=== PATIENT | female | born 1965 | race African-American/Black ===

== ENCOUNTER 2017-03-15 10:49 | Inpatient (IN) | payer OTHER ==
[~2017-03-15] VITALS: Ht 165.1 cm; Wt 146.9 kg
[~2017-03-15 10:49] MED LIST: AUGM875T3 PO; CIPR0.3S RIGHT EAR; CLON0.1T PO; FURO1TAB62 PO; METF1000 PO; PRED20 PO; VALS1TAB70 PO
[2017-03-15] MEDS ORDERED: PROCHLORPERAZINE 25 MG SUPP RECTAL PRN (13:30)
[2017-03-15] MEDS ORDERED: ZOLPIDEM TARTRATE 5 MG TAB PO PRN (13:30)
[2017-03-15] MEDS ORDERED: MAGNESIUM HYDROXIDE SUSP 30 ML CUP PO PRN (13:30)
[2017-03-15] MEDS ORDERED: LACTULOSE SYRUP 20 GM/30 ML CUP PO PRN (13:30)
[2017-03-15] MEDS ORDERED: oxyCODONE/ACETAMINOPHEN 10 MG/325 MG TAB PO PRN (13:30)
[2017-03-15] MEDS ORDERED: NALOXONE HCL 0.4 MG/ML AMP IV PUSH PRN (13:30)
[2017-03-15] MEDS ORDERED: oxyCODONE/ACETAMINOPHEN 5 MG/325 MG TAB PO PRN (13:30)
[2017-03-15] MEDS ORDERED: MORPHINE SULFATE 4 MG/ML INJ IV PUSH PRN ×2 (13:30)
[2017-03-15] MEDS ORDERED: SODIUM CHLORIDE 0.9% FLUSH 10 ML FLUSH IV FLUSH PRN (13:30)
[2017-03-15] MEDS ORDERED: ACETAMINOPHEN 325 MG TAB PO PRN (13:30)
[2017-03-15] MEDS ORDERED: SENNOSIDES 8.6 MG TAB PO PRN (13:30)
[2017-03-15] MEDS ORDERED: GLUCAGON 1 MG/ML VIAL OTHER PRN (13:30)
[2017-03-15] MEDS ORDERED: ONDANSETRON HCL 4 MG/2 ML VIAL IVP PRN (13:30)
[2017-03-15] MEDS ORDERED: DEXTROSE 50% IN WATER 50 ML SYRINGE IV PUSH PRN (13:30)
[2017-03-15] MEDS ORDERED: BISACODYL 10 MG SUPP RECTAL PRN (13:30)
[2017-03-15] MEDS: PANTOPRAZOLE SOD 40 MG DELAYED RELEASE TAB PO SCH (13:45)
[2017-03-15] MEDS ORDERED: RESP: ALBUTEROL 2.5 MG/IPRATROPIUM 0.5 MG NEB (PRN) NEB (13:45)
[2017-03-15] MEDS ORDERED: PANTOPRAZOLE SOD 40 MG DELAYED RELEASE TAB PO ONE (13:45)
[2017-03-15] MEDS: guaiFENesin E.R. 600 MG TAB PO SCH ×2 (13:45→21:34)
[2017-03-15] MEDS ORDERED: IOHEXOL 350 MG/ML 10 ML VIAL (for RAD DIAG) IVCONTRAST ONE (16:26)
[2017-03-15 16:56] VITALS: BP 127/88; PULSE 82; RESP 18; TEMP 98.3; O2SAT 98
[2017-03-15] MEDS: INSULIN ASPART SUPPLEMENTAL SCALE SQ SCH ×2 (17:00→21:43)
[2017-03-15] MEDS: FUROSEMIDE 40 MG/4 ML VIAL IVP SCH (17:13)
[2017-03-15] MEDS: LEVOFLOXACIN 750 MG PREMIX INJ 150 ML IV SCH (17:14)
[2017-03-15] MEDS: ENOXAPARIN SODIUM 40 MG/0.4 ML SYRINGE SQ SCH (17:15)
[2017-03-15 17:48] VITALS: PULSE 84
[2017-03-15] MEDS ORDERED: metFORMIN HCL 500 MG TAB PO SCH (18:00)
--- NOTE | 2017-03-15 18:06 | HHI.HP ---
HPI Service [facility] Hospitalists Primary Care Physician Non-Staff DR SYKES Admission Diagnosis CHF, SOB, PNEUMONIA Diagnoses: (1) CHF (congestive heart failure) (2) Diabetes (3) Hypertension (4) Obese (5) Pneumonia (6) Accelerated hypertension Chief Complaint: Chest tightness Dyspnea Travel History International Travel<30 Days: No Contact w/Intl Traveler <30 Da: No Traveled to Known Affected Are: No History of Present Illness This is 51-year-old female with a past medical history significant for asthma, hypertension, diabetes and RY who presents to [facility] with complaints of chest tightness and shortness of breath 4 days. Patient was seen in [place] on 03/13 with same complaints and was treated with Lasix, nebulizer and IV Solu-Medrol and discharged on short oral steroid burst and oral Lasix. Patient was offered admission but declined. Patient presents today due to having increased shortness of breath that is worse with deep inspiration, bending over and movement as well as having nonradicular anterior bilateral chest pain the patient describes as a pressure sensation. She attempted to go to work today but was unable to stay due to the severity of her symptoms. Patient states her chest tightness is similar to previous asthmatic attack she's had in the past. She's been using her Ventolin inhaler and nebulizer treatments at home without any improvement. She denies any previous hospitalization due to asthma exacerbation. Patient reports history of nonpostural dizziness but states this is chronic and she's had it "for years". She had a loop recorder implanted in 2013 due to multiple syncopal episodes without any significant findings. She denies any recent illness. She denies any fever chills or cough. She reports some mild left-sided abdominal pain and episode of nonbilious nonbloody vomiting 1 last night. She denies any urinary complaints. She reports constipation and states she's not had a normal bowel movement in 4 days. She does endorse intermittent lower extremity swelling for the past year but reports has been much worse for the past month and a half. She states it has improved since she was given the Lasix several days ago. Patient states she is no longer having any complaints of chest discomfort since the nitroglycerin paste was applied. In the ED, CTA reveals no evidence of pulmonary embolus but shows patchy groundglass infiltrates and atelectasis. CXR shows stable cardiomegaly with improved positive fluid balance and minimal left lower lobe atelectasis. Patient's glucose is elevated at 316. Patient states her blood sugars normally run in the mid 100 but it been elevated due to the prednisone she has been taking since Wednesday. BNP elevated at 430. Review of Systems Constitutional: COMPLAINS OF: Fatigue, Dizziness, DENIES: Diaphoretic episodes , Fever, Weight gain, Weight loss, Chills, Change in appetite, Night Sweats Endocrine: DENIES: Abnorml menstrual pattern, Heat/cold intolerance, Polydipsia Eyes: DENIES: Blurred vision, Diplopia, Eye inflammation, Eye pain Ears, nose, mouth, throat: DENIES: Tinnitus, Hearing loss, Vertigo, Nasal discharge, Odynophagia Respiratory: COMPLAINS OF: Cough, Shortness of breath, DENIES: Apneas, Snoring , Wheezing, Hemoptysis, Sputum production Cardiovascular: COMPLAINS OF: Chest pain, Dyspnea on Exertion, Lower Extremity Edema, Orthopnea, DENIES: Palpitations, Syncope, PND Gastrointestinal: COMPLAINS OF: Constipation, DENIES: Abdominal pain, Black stools, Bloody stools Genitourinary: DENIES: Abnormal vaginal bleeding, Dysmenorrhea, Vaginal discharge Musculoskeletal: DENIES: Joint pain, Muscle aches, Stiffness Integumentary: DENIES: Abnormal pigmentation, Pruritus Hematologic/lymphatic: DENIES: Bruising, Lymphadenopathy Immunologic/allergic: DENIES: Eczema, Urticaria Neurologic: DENIES: Abnormal gait, Headache, Localized weakness, Paresthesias, Seizures, Speech Problems, Tremor Except as stated in HPI: all other systems reviewed are Neg Past Family Social History Past Medical History Asthma Uncontrolled hypertension Diabetes RY, Bipap compliant Obesity Past Surgical History Hernia repair Implantation of loop recorder 2014 Hysterectomy Bladder stimulator Reported Medications Prednisone 20 Mg Tab 40 Mg PO DAILY 5 Days Take 40 mg (2 tablets) daily for 5 days Lasix (Furosemide) 20 Mg Tab 20 Mg PO DAILY 7 Days Metformin (Metformin HCl) 1,000 Mg Tab 1,000 Mg PO BIDPC With meals Clonidine (Clonidine HCl) 0.1 Mg Tab 0.1 Mg PO BID Valsartan 320 Mg Tab 320 Mg PO DAILY Allergies: Coded Allergies: No Known Allergies (Unverified , 03/15/17) Active Ordered Medications Current Medications Medications (Trade) Dose Ordered Sig/Lidia Route Start Time Stop Time Status Last Admin (D50w (Syr) Inj) 50 ml UNSCH PRN IV PUSH 03/15/17 13:30 (Glucagon Inj) 1 mg UNSCH PRN OTHER 03/15/17 13:30 (NovoLOG SUPPLEMENTAL SCALE) 1 ACHS SLIDING SCALE SQ 03/15/17 17:00 03/15/17 17:00 (Catapres) 0.1 mg BID PO 03/15/17 21:00 (Glucophage) 1,000 mg BIDPC PO 03/15/17 18:00 (Diovan) 320 mg DAILY PO 03/16/17 09:00 (NS Flush) 2 ml UNSCH PRN IV FLUSH 03/15/17 13:30 (NS Flush) 2 ml BID IV FLUSH 03/15/17 21:00 (Lasix Inj) 40 mg BID@18 IVP 03/15/17 18:00 03/15/17 17:13 (KCl) 20 meq BID PO 03/15/17 21:00 (Aspirin Chew) 81 mg DAILY CHEW 03/16/17 09:00 (Lovenox Inj) 40 mg Q24H SQ 03/15/17 14:00 03/15/17 17:15 (Tylenol) 650 mg Q4H PRN PO 03/15/17 13:30 (Zofran Inj) 4 mg Q6H PRN IVP 03/15/17 13:30 (Compazine Supp) 25 mg Q12H PRN RECTAL 03/15/17 13:30 (Ambien) 5 mg HS PRN PO 03/15/17 13:30 (Tylenol) 650 mg Q6H PRN PO 03/15/17 13:30 (Percocet 5-325 Mg) 1 tab Q6H PRN PO 03/15/17 13:30 (Percocet 10-325 Mg) 1 tab Q6H PRN PO 03/15/17 13:30 (Morphine Inj) 2 mg Q3H PRN IV PUSH 03/15/17 13:30 (Morphine Inj) 4 mg Q3H PRN IV PUSH 03/15/17 13:30 (Narcan Inj) 0.4 mg UNSCH PRN IV PUSH 03/15/17 13:30 (Jennie-Colace) 1 tab BID PO 03/15/17 21:00 (Milk Of Magnesia Liq) 30 ml Q12H PRN PO 03/15/17 13:30 (Senokot) 17.2 mg Q12H PRN PO 03/15/17 13:30 03/15/17 17:13 (Dulcolax Supp) 10 mg DAILY PRN RECTAL 03/15/17 13:30 (Lactulose Liq) 30 ml DAILY PRN PO 03/15/17 13:30 (Mucinex Er) 600 mg BID PO 03/15/17 13:45 (Duoneb Neb) 1 ampule Q4HR NEB PRN NEB 03/15/17 13:45 (Protonix) 40 mg DAILY PO 03/15/17 13:45 Levofloxacin/ Dextrose 150 ml @ 100 mls/hr Q24H IV 03/15/17 14:00 03/15/17 17:14 Family History CAD - mother Diabetes - mother, brothers Social History Patient denies any tobacco use. She reports occasional alcohol consumption. She denies any illicit drug use. Physical Exam Vital Signs Vital Signs Date Time Temp Pulse Resp B/P (MAP) Pulse Ox O2 Delivery O2 Flow Rate FiO2 03/15/17 16:56 98.3 82 18 127/88 (101) 98 Physical Exam GENERAL: This is a well-nourished, well-developed obese patient, in no apparent distress. Awake and alert. Appears comfortable. SKIN: No rashes, ecchymoses or lesions. Cool and dry. HEAD: Atraumatic. Normocephalic. No temporal or scalp tenderness. EYES: Pupils equal round and reactive. Extraocular motions intact. No scleral icterus. No injection or drainage. ENT: Nose without bleeding, purulent drainage. Throat without erythema, tonsillar hypertrophy or exudate. Uvula midline. Airway patent. NECK: Trachea midline. No lymphadenopathy. Supple, nontender, no meningeal signs. CARDIOVASCULAR: Regular rate and rhythm without murmurs, gallops, or rubs. RESPIRATORY: Clear to auscultation. Breath sounds equal bilaterally. No wheezes , rales, or rhonchi. GASTROINTESTINAL: Abdomen soft, non-tender, nondistended. No hepato-splenomegaly , or palpable masses. No guarding. MUSCULOSKELETAL: Extremities without clubbing, cyanosis. Trace BLE edema. No joint tenderness, effusion, or edema noted. No calf tenderness. NEUROLOGICAL: Awake and alert. Able to move all extremities. Normal speech. Laboratory White blood cell count is 13.4 Hemoglobin is 11.7 Hematocrit is 34.9 Platelets are 339 White Blood Count 13.4 TH/MM3 Red Blood Count 4.47 MIL/MM3 Hemoglobin 11.7 GM/DL Hematocrit 34.9 % Mean Corpuscular Volume 78.1 FL Mean Corpuscular Hemoglobin 26.2 PG Mean Corpuscular Hemoglobin Concent 33.5 % Red Cell Distribution Width 14.8 % Platelet Count 339 TH/MM3 Mean Platelet Volume 9.3 FL Neutrophils (%) (Auto) 65.2 % Lymphocytes (%) (Auto) 28.0 % Monocytes (%) (Auto) 5.8 % Eosinophils (%) (Auto) 0.1 % Basophils (%) (Auto) 0.2 % Neutrophils # (Auto) 8.7 TH/MM3 Lymphocytes # (Auto) 3.7 TH/MM3 Monocytes # (Auto) 0.8 TH/MM3 Eosinophils # (Auto) 0.0 TH/MM3 Basophils # (Auto) 0.0 TH/MM3 CBC Comment DIFF FINAL Differential Comment Prothrombin Time 11.3 SEC Prothromb Time International Ratio 1.1 RATIO Activated Partial Thromboplast Time 21.9 SEC D-Dimer Quantitative (PE/DVT) 1.05 MG/L FEU Blood Urea Nitrogen 15 MG/DL Creatinine 0.80 MG/DL Random Glucose 316 MG/DL Total Protein 8.1 GM/DL Albumin 3.7 GM/DL Calcium Level 10.0 MG/DL Magnesium Level 2.0 MG/DL Alkaline Phosphatase 132 U/L Aspartate Amino Transf (AST/SGOT) 21 U/L Alanine Aminotransferase (ALT/SGPT) 39 U/L Total Bilirubin 0.7 MG/DL Sodium Level 140 MEQ/L Potassium Level 3.7 MEQ/L Chloride Level 102 MEQ/L Carbon Dioxide Level 30.0 MEQ/L Anion Gap 8 MEQ/L Estimat Glomerular Filtration Rate 92 ML/MIN Total Creatine Kinase 122 U/L Creatine Kinase MB 1.3 NG/ML Troponin I 0.04 NG/ML B-Type Natriuretic Peptide 430 PG/ML Imaging CXR 03/15/17 CONCLUSION: 1. Cardiomegaly with improved positive fluid balance. 2. Minimal left lower lobe atelectasis. CTA 03/15/17 CONCLUSION: 1. No evidence for pulmonary embolus. 2. Patchy ground glass infiltrates and atelectasis. Caprini VTE Risk Assessment Caprini VTE Risk Assessment: Mod/High Risk (score >= 2) Caprini Risk Assessment Model Point Value = 1 Point Value = 2 Point Value = 3 Point Value = 5 Age 41-60 Minor surgery BMI > 25 kg/m2 Swollen legs Varicose veins or History of unexplained or recurrent spontaneous Oral contraceptives or hormone replacement Sepsis (< 1 month) Serious lung disease, including pneumonia (< 1 month) Abnormal pulmonary function Acute myocardial infarction Congestive heart failure (< 1 month) History of inflammatory bowel disease Medical patient at bed rest Age 61-74 Arthroscopic surgery Major open surgery (> 45 min) Laparoscopic surgery (> 45 min) Malignancy Confined to bed (> 72 hours) Immobilizing plaster cast Central venous access Age >= 75 History of VTE Family history of VTE Factor V Leiden Prothrombin [id number] Lupus anticoagulant Anticardiolipin antibodies Elevated serum homocysteine Heparin-induced thrombocytopenia Other congenital or acquired thrombophilia Stroke (< 1 month) Elective arthroplasty Hip, pelvis, or leg fracture Acute spinal cord injury (< 1 month) Prophylaxis Regimen Total Risk Factor Score Risk Level Prophylaxis Regimen 0-1 Low Early ambulation 2 Moderate Order ONE of the following: *Sequential Compression Device (SCD) *Heparin 5000 units SQ BID 3-4 Higher Order ONE of the following medications: *Heparin 5000 units SQ TID *Enoxaparin/Lovenox 40 mg SQ daily (WT < 150 kg, CrCl > 30 mL/min) *Enoxaparin/Lovenox 30 mg SQ daily (WT < 150 kg, CrCl > 10-29 mL/min) *Enoxaparin/Lovenox 30 mg SQ BID (WT < 150 kg, CrCl > 30 mL/min) AND/OR *Sequential Compression Device (SCD) 5 or more Highest Order ONE of the following medications: *Heparin 5000 units SQ TID (Preferred with Epidurals) *Enoxaparin/Lovenox 40 mg SQ daily (WT < 150 kg, CrCl > 30 mL/min) *Enoxaparin/Lovenox 30 mg SQ daily (WT < 150 kg, CrCl > 10-29 mL/min) *Enoxaparin/Lovenox 30 mg SQ BID (WT < 150 kg, CrCl > 30 mL/min) AND *Sequential Compression Device (SCD) Assessment and Plan Problem List: (1) Accelerated hypertension ICD Code: I10 - Essential (primary) hypertension Status: Acute (2) Obese ICD Code: E66.9 - Obesity, unspecified (3) CHF (congestive heart failure) ICD Code: I50.9 - Heart failure, unspecified (4) Hypertension ICD Code: I10 - Essential (primary) hypertension (5) Diabetes ICD Code: E11.9 - Type 2 diabetes mellitus without complications Assessment and Plan 51-year-old female with a past medical history significant for asthma, uncontrolled hypertension, diabetes and RY who presents to [facility] with complaints of chest tightness and shortness of breath 4 days. Chest pain/tightness r/o ACS - Improved after nitropaste applied - initial troponin 0.04 - EKG personally reviewed, nonspecific T-wave abnormality, no evidence of ischemic changes - Continue to cycle cardiac enzymes and EKGs - Consult cardiology - ASA 81mg daily - Morphine 2mg IV prn chest pain - Continuous cardiac monitoring CHF exacerbation - CXR personally reviewed showing minimal left basilar opacity, enlarged cardiac silhouette and improved positive fluid balance from previous chest x- ray. - BNP 430 - Fluid restricted heart healthy diet - Lasix 40mg IV BID - Monitor electrolytes - Monitor intake/output - obtain 2D echo - PT/OT eval/tx Pneumonia Hx of asthma RY on Bipap - Chest x-ray revealing minimal left basilar opacity and atelectasis - CTA revealing groundglass infiltrates and subcentimeter mediastinal and right hilar lymph nodes. No evidence of PE or pleural effusions. - Consult Pulmonary medicine - IV Levaquin - Guaifenesin ER 600 mg by mouth twice a day - scheduled Duonebs - IS, encourage use - supplemental oxygen as needed to keep O2 sats >92% Leukocytosis - Likely secondary to steroid use - Patient is afebrile. - UA ordered - Repeat CBC in a.m. Diabetes - Elevated blood sugar of 316 admission. Patient is on oral steroids. - Hold metformin - Accu-Cheks - Insulin sliding scale - Diabetic heart healthy diet - obtain HgbA1c Hypertension - Controlled - Continue patient on home dose of Diovan 320 mg daily and Clonidine 0.1mg BID. - monitor BP Constipation - likely contributing to patients mild abdominal pain - Jennie-Colace twice a day scheduled - Dulcolax and Lactulose prn - Monitor for BM GI prophylaxis - Pantoprazole 40 mg daily DVT prophylaxis - Lovenox 40 mg subcutaneous daily - Bilateral AMY/SCDs The exam, history, and the medical decision-making described in the above note were completed with the assistance of the mid-level provider. I reviewed and agree with the findings presented. I attest that I had a [id number] encounter with the patient on the same day, and personally performed and documented my assessment and findings in the medical record. Code Status FULL CODE Discussed Condition With Patient, spouse, nursing staff, Dr. Gr Physician Certification 2 Midnight Certification Type: Admission for Inpatient Services Order for Inpatient Services The services are ordered in accordance with Medicare regulations or non- Medicare payer requirements, as applicable. In the case of services not specified as inpatient-only, they are appropriately provided as inpatient services in accordance with the 2-midnight benchmark. Estimated LOS (days): 2 2 days is the estimated time the patient will need to remain in the hospital, assuming treatment plan goals are met and no additional complications. Post-Hospital Plan: Not yet determined Jane Jones Mar 15, 2017 18:06 Nicola Gr DO Mar 15, 2017 18:43
[2017-03-15 19:56] VITALS: O2SAT 99
[2017-03-15 20:03] VITALS: BP 143/93; PULSE 90; RESP 14; TEMP 96; O2SAT 95
[2017-03-15 20:09] VITALS: PULSE 88
[2017-03-15] MEDS: DOCUSATE SODIUM 50 MG/SENNA 8.6 MG TAB PO SCH (21:34)
[2017-03-15] MEDS: cloNIDine HCL 0.1 MG TAB PO SCH (21:34)
[2017-03-15] MEDS: SODIUM CHLORIDE 0.9% FLUSH 10 ML FLUSH IV FLUSH SCH (21:34)
[2017-03-15] MEDS: POTASSIUM CHLORIDE 20 MEQ CONTROLLED RELEASE TAB PO SCH (21:34)
[2017-03-15 21:39] LABS: CREATINE KINASE 134 U/L (26-192)
[2017-03-16] VITALS (15 sets, daily range): BP systolic 117–183; BP diastolic 75–105; PULSE 53–91; RESP 18–20; TEMP 97.7–98.4; O2SAT 93–98
[2017-03-16 03:29] LABS: MEAN CORPUSCULAR HEMOGLOBIN 26.4 PG (27.0-34.0); MEAN CORPUSCULAR HGB CONC 33.8 % (32.0-36.0); PLATELET COUNT 320 TH/MM3 (150-450); RED BLOOD COUNT 4.61 MIL/MM3 (4.00-5.30); RED CELL DISTRIBUTION WIDTH 15.6 % (11.6-17.2); WHITE BLOOD COUNT 12.6 TH/MM3 (4.0-11.0)
[2017-03-16 03:32] LABS: HEMO FLAGS AUTO DIFF
[2017-03-16 03:41] LABS: MAGNESIUM 1.7 MG/DL (1.5-2.5)
[2017-03-16 04:52] LABS: NEUTROPHIL # MANUAL DIFF 5.5 TH/MM3 (1.8-7.7); POLYS (SEG NEUTROPHILS) 44 % (16-70); WBC DIFF SAMPLE 100
[2017-03-16 04:53] LABS: PLATELET ESTIMATE SMEAR NORMAL (NORMAL); PLATELET MORPHOLOGY NORMAL (NORMAL); SCAN/DIFF FINAL DIFF MANUAL
[2017-03-16] MEDS: cloNIDine HCL 0.1 MG TAB PO SCH ×2 (07:49→21:00)
[2017-03-16] MEDS: ASPIRIN 81 MG CHEW TAB CHEW SCH (07:49)
[2017-03-16] MEDS: FUROSEMIDE 40 MG/4 ML VIAL IVP SCH (07:50)
[2017-03-16] MEDS: PANTOPRAZOLE SOD 40 MG DELAYED RELEASE TAB PO SCH (07:50)
[2017-03-16] MEDS: POTASSIUM CHLORIDE 20 MEQ CONTROLLED RELEASE TAB PO SCH ×2 (07:50→21:00)
[2017-03-16] MEDS: DOCUSATE SODIUM 50 MG/SENNA 8.6 MG TAB PO SCH ×2 (07:50→21:00)
[2017-03-16] MEDS: VALSARTAN 160 MG TAB PO SCH (07:50)
[2017-03-16] MEDS: guaiFENesin E.R. 600 MG TAB PO SCH ×2 (07:50→21:00)
[2017-03-16] MEDS: SODIUM CHLORIDE 0.9% FLUSH 10 ML FLUSH IV FLUSH SCH ×2 (07:51→21:00)
[2017-03-16] MEDS: INSULIN ASPART SUPPLEMENTAL SCALE SQ SCH ×3 (08:00→21:00)
[2017-03-16 09:40] LABS: ANION GAP 6 MEQ/L (5-15); AST (GOT) 23 U/L (15-37); BICARBONATE 29.9 MEQ/L (21.0-32.0); BLOOD UREA NITROGEN 20 MG/DL (7-18); CHLORIDE 99 MEQ/L (98-107); GLOMERULAR FILTRATION RATE 72 ML/MIN (>89); MAGNESIUM 1.7 MG/DL (1.5-2.5); SODIUM (NA) 135 MEQ/L (136-145)
[2017-03-16 09:41] LABS: ALT (GPT) 34 U/L (10-53)
[2017-03-16 09:50] LABS: ALKALINE PHOSPHATASE 100 U/L (45-117); FREE T4 0.98 NG/DL (0.76-1.46); TOTAL BILIRUBIN ADULT 0.8 MG/DL (0.2-1.0)
[2017-03-16 10:06] LABS: CREATINE KINASE 100 U/L (26-192)
[2017-03-16 11:23] LABS: HEMOGLOBIN A1a 1.1 %; HEMOGLOBIN A1b 0.7 %; HEMOGLOBIN Ao 49.8 %; HEMOGLOBIN F 1.1 %; HEMOGLOBIN LA1C 1.9 %; HEMOGLOBIN P3 3.1 %
--- NOTE | 2017-03-16 11:32 | MB ---
cc: STEVE STACK DATE OF CONSULTATION 03/16/2017 INDICATION Chest pain, shortness of breath. HISTORY OF PRESENT ILLNESS This is a 51-year-old female without prior history of known heart disease. She has a history of asthma, hypertension, diabetes in addition to sleep apnea. She presents with progressive shortness of breath over the course of the past week or so. She has a overlock hemmer in [place] secondary to several syncopal episodes quite a while back. She has had a loop recorder implanted in 2013 but no significant findings. According to her, she had a stress test about two years ago which was unremarkable. She has not had any history of cardiomyopathy or valvular heart disease. Apparently she was in [facility] on March 13, was treated with nebulizer, IV Solu-Medrol for wheezing and offered admission, but declined. She has continued to have progressive symptoms and came into the emergency department for further evaluation. Chest x-ray did show cardiomegaly and some interstitial fluent. CTA revealed some patchy ground-glass infiltrates, but no embolus. She was initiated on diuretics and symptomatically seems to be doing a little better. She describes the chest pain as a constant pain somewhat worse with deep inspiration, nonexertional. PAST MEDICAL HISTORY 1. Asthma 2. Hypertension 3. Diabetes 4. Obstructive sleep apnea 5. Obesity REPORTED MEDICATIONS 1. Prednisone taper 2. Lasix 3. Metformin 4. Clonidine 5. Valsartan ALLERGIES NO KNOWN DRUG ALLERGIES. FAMILY HISTORY Denies any family history of early coronary artery disease or sudden cardiac . SOCIAL HISTORY Denies any alcohol, tobacco or drug use. REVIEW OF SYSTEMS A 12-point review of systems was performed and is negative unless otherwise as noted in the history of present illness. PHYSICAL EXAMINATION Temperature 98, pulse 64, blood pressure 123/84 mmHg. GENERAL: Alert and oriented x3, obese. HEENT: The exam shows pupils are reactive to light and accommodation. Extraocular movements are intact. NECK: Jugular veins are difficult to appreciate given body habitus. No carotid bruits. LUNGS: Clear to auscultation bilaterally with some fine crackles at the bases. CARDIOVASCULAR: Distant heart sounds regular without murmurs. ABDOMEN: Abdominal exam is obese, but nondistended, nontender. EXTREMITIES: Show no clubbing, cyanosis. 1+ edema. LABORATORY DATA WBC 12.6, hemoglobin 12.2, platelet count 320. Sodium 135, potassium 4.0, BUN is 20, creatinine 0.99, troponins negative x3. Her electrocardiogram is sinus rhythm with occasional premature atrial complexes, borderline LVH. ASSESSMENT 1. Atypical chest pain. 2. Congestive heart failure acute. 3. Hypertension 4. Diabetes 5. Obstructive sleep apnea. PLAN The patient's chest pain is fairly atypical for cardiac etiology. She has minimal cardiovascular risk factors and negative stress test two years ago. CTA was negative for pulmonary embolism. Her symptoms sound almost pleuritic in nature. Discussed options with her. She would like to proceed with another stress test here. We can get a Lexiscan. She has not had any caffeine yet today. Hopefully this will look normal. Threshold for proceed with any invasive strategy would be rather high given her atypical presentation. From a shortness of breath standpoint, it may be multifactorial, a combination of her asthma, sleep apnea in addition to some congestive heart failure. I suspect that she may have diastolic failure, BNP is mildly elevated and chest x-ray also confirms interstitial edema. She is slightly improved with diuresis. We will follow up on a 2-D echocardiogram, continue diuretics, monitor blood pressure. MD CHRISTIAN An/SHAWN /11:06 AM /11:21 AM
--- NOTE | 2017-03-16 11:34 | HHI.PR ---
Subjective Remarks The pt was resting comfortably. She said she still has some right sided chest discomfort. She endorsed significant constipation. She said she talked with the system administrator. Family at the bedside. Objective Vitals Vital Signs Date Time Temp Pulse Resp B/P (MAP) Pulse Ox O2 Delivery O2 Flow Rate FiO2 03/16/17 09:20 123/84 (97) 03/16/17 08:00 64 03/16/17 07:50 93 21 03/16/17 07:36 98.4 80 20 180/93 (122) 96 03/16/17 04:35 98.2 80 18 117/75 (89) 95 03/16/17 03:59 86 03/16/17 00:20 98.3 61 18 138/87 (104) 96 03/16/17 00:05 74 03/15/17 20:09 88 03/15/17 20:03 96.0 90 14 143/93 (110) 95 03/15/17 19:56 99 03/15/17 17:48 84 03/15/17 16:56 98.3 82 18 127/88 (101) 98 I/O 03/15/17 03/15/17 03/15/17 03/16/17 03/16/17 03/16/17 07:00 15:00 23:00 07:00 15:00 23:00 Intake Total 580 ml 480 ml Output Total 200 ml Balance 380 ml 480 ml Intake Oral 280 ml 480 ml IV Total 300 ml Output Urine Total 200 ml Result Diagram: 03/16/17 0307 03/16/17 0851 Objective Remarks GENERAL: This is a well-nourished, well-developed obese patient, using her home breathing device. SKIN: No rashes, ecchymoses or lesions. Cool and dry. HEAD: Atraumatic. Normocephalic. No temporal or scalp tenderness. EYES: Pupils equal round and reactive. Extraocular motions intact. No scleral icterus. No injection or drainage. ENT: Nose without bleeding, purulent drainage. Throat without erythema, tonsillar hypertrophy or exudate. Uvula midline. Airway patent. NECK: Trachea midline. No lymphadenopathy. Supple, nontender, no meningeal signs. CARDIOVASCULAR: Regular rate and rhythm without murmurs, gallops, or rubs. RESPIRATORY: Clear to auscultation. Breath sounds equal bilaterally. No wheezes , rales, or rhonchi. GASTROINTESTINAL: Abdomen soft, non-tender, nondistended. No hepato-splenomegaly , or palpable masses. No guarding. MUSCULOSKELETAL: Extremities without clubbing, cyanosis. Trace BLE edema. No joint tenderness, effusion. NEUROLOGICAL: Awake and alert. Able to move all extremities. Normal speech. PSYCH: Mood and affect appropriate. Medications and IVs Current Medications Medications (Trade) Dose Ordered Sig/Lidia Route Start Time Stop Time Status Last Admin (D50w (Syr) Inj) 50 ml UNSCH PRN IV PUSH 03/15/17 13:30 (Glucagon Inj) 1 mg UNSCH PRN OTHER 03/15/17 13:30 (NovoLOG SUPPLEMENTAL SCALE) 1 ACHS SLIDING SCALE SQ 03/15/17 17:00 03/16/17 08:00 (Catapres) 0.1 mg BID PO 03/15/17 21:00 03/16/17 07:49 (Glucophage) 1,000 mg BIDPC PO 03/15/17 18:00 Future Hold (Diovan) 320 mg DAILY PO 03/16/17 09:00 03/16/17 07:50 (NS Flush) 2 ml UNSCH PRN IV FLUSH 03/15/17 13:30 (NS Flush) 2 ml BID IV FLUSH 03/15/17 21:00 03/16/17 07:51 (Lasix Inj) 40 mg BID@,18 IVP 03/15/17 18:00 03/16/17 07:50 (KCl) 20 meq BID PO 03/15/17 21:00 03/16/17 07:50 (Aspirin Chew) 81 mg DAILY CHEW 03/16/17 09:00 03/16/17 07:49 (Lovenox Inj) 40 mg Q24H SQ 03/15/17 14:00 03/15/17 17:15 (Tylenol) 650 mg Q4H PRN PO 03/15/17 13:30 (Zofran Inj) 4 mg Q6H PRN IVP 03/15/17 13:30 (Compazine Supp) 25 mg Q12H PRN RECTAL 03/15/17 13:30 (Ambien) 5 mg HS PRN PO 03/15/17 13:30 (Tylenol) 650 mg Q6H PRN PO 03/15/17 13:30 (Percocet 5-325 Mg) 1 tab Q6H PRN PO 03/15/17 13:30 (Percocet 10-325 Mg) 1 tab Q6H PRN PO 03/15/17 13:30 (Morphine Inj) 2 mg Q3H PRN IV PUSH 03/15/17 13:30 (Morphine Inj) 4 mg Q3H PRN IV PUSH 03/15/17 13:30 (Narcan Inj) 0.4 mg UNSCH PRN IV PUSH 03/15/17 13:30 (Jennie-Colace) 1 tab BID PO 03/15/17 21:00 03/16/17 07:50 (Milk Of Magnesia Liq) 30 ml Q12H PRN PO 03/15/17 13:30 (Senokot) 17.2 mg Q12H PRN PO 03/15/17 13:30 03/15/17 17:13 (Dulcolax Supp) 10 mg DAILY PRN RECTAL 03/15/17 13:30 (Lactulose Liq) 30 ml DAILY PRN PO 03/15/17 13:30 (Mucinex Er) 600 mg BID PO 03/15/17 13:45 03/16/17 07:50 (Duoneb Neb) 1 ampule Q4HR NEB PRN NEB 03/15/17 13:45 (Protonix) 40 mg DAILY PO 03/15/17 13:45 03/16/17 07:50 Levofloxacin/ Dextrose 150 ml @ 100 mls/hr Q24H IV 03/15/17 14:00 03/15/17 17:14 A/P Problem List: (1) Accelerated hypertension ICD Code: I10 - Essential (primary) hypertension Status: Acute (2) Obese ICD Code: E66.9 - Obesity, unspecified (3) CHF (congestive heart failure) ICD Code: I50.9 - Heart failure, unspecified (4) Hypertension ICD Code: I10 - Essential (primary) hypertension (5) Diabetes ICD Code: E11.9 - Type 2 diabetes mellitus without complications Assessment and Plan 51-year-old female with a past medical history significant for asthma, uncontrolled hypertension, diabetes and RY who presents to [facility] with complaints of chest tightness and shortness of breath 4 days. Chest pain/tightness r/o ACS - Improved after nitropaste applied - troponin peaked at 0.04. - EKG personally reviewed, nonspecific T-wave abnormality, no evidence of ischemic changes - appreciate cardiology consult. Stress test pending. - ASA 81mg daily - pain control as needed - Continuous cardiac monitoring CHF exacerbation - CXR personally reviewed showing minimal left basilar opacity, enlarged cardiac silhouette and improved positive fluid balance from previous chest x- ray. - BNP 430 - Fluid restricted heart healthy diet - Lasix 40mg IV BID - Monitor electrolytes - Monitor intake/output - obtain 2D echo - PT/OT eval/tx - follow up with cardiology. Stress test pending. Pneumonia Hx of asthma RY on Bipap - Chest x-ray revealing minimal left basilar opacity and atelectasis - CTA revealing groundglass infiltrates and subcentimeter mediastinal and right hilar lymph nodes. No evidence of PE or pleural effusions. - Consult Pulmonary medicine - IV Levaquin - Guaifenesin ER 600 mg by mouth twice a day - scheduled Duonebs - IS, encourage use - supplemental oxygen as needed to keep O2 sats >92% Leukocytosis - Likely secondary to steroid use - Patient is afebrile. - UA ordered - Repeat CBC in a.m. Diabetes - Elevated blood sugar of 316 admission. Patient is on oral steroids. - Hold metformin - Accu-Cheks - Insulin sliding scale - Diabetic heart healthy diet - obtain HgbA1c - NPH 20 units daily. Hypertension - Controlled - Continue patient on home dose of Diovan 320 mg daily and Clonidine 0.1mg BID. - monitor BP Constipation - likely contributing to patients mild abdominal pain - Jennie-Colace twice a day scheduled. Standing Miralax. Lactulose x 1. - Dulcolax and Lactulose prn - Monitor for BM GI prophylaxis - Pantoprazole 40 mg daily DVT prophylaxis - Lovenox 40 mg subcutaneous daily - Bilateral AMY/SCDs Discharge Planning Awaiting clinical improvement. Stress test pending Curtis Adams DO Mar 16, 2017 11:34
--- NOTE | 2017-03-16 11:38 | EKG ---
Date Performed: 03/15/2017 Time Performed: 20:53:30 PTAGE: 51 years EKG: Sinus rhythm WITH OCCASIONAL SUPRAVENTRICULAR PREMATURE COMPLEXES MODERATE VOLTAGE CRITERIA FOR LVH, CONSIDER NOR MAL VARIANT NONSPECIFIC T-WAVE ABNORMALITY BORDERLINE ECG NO PREVIOUS TRACING DOCTOR: Edgard Zepeda Interpretating Date/Time 03/16/2017 11:36:08
[2017-03-16] MEDS ORDERED: INSULIN HUMAN NPH 1,000 UNITS/10 ML VIAL SQ ONE (11:45)
[2017-03-16] MEDS ORDERED: LACTULOSE SYRUP 20 GM/30 ML CUP PO ONE (11:45)
--- NOTE | 2017-03-16 12:50 | ECHRPT ---
Indication: heart failure CONCLUSIONS The left ventricular systolic function is severely reduced with an estimated ejection fraction in th e range of 30-35%. Normal left ventricular size. Mild concentric left ventricular hypertrophy. The left atrial size is upper limits of normal. [id number] mitral valve regurgitation. There is mild tricuspid valve regurgitation BP: / HR: Rhythm: MEASUREMENTS (Male / Female) Normal Values Technical Quality:Technically difficult study 2D ECHO LV Diastolic Diameter PLAX 4.4 cm 4.2 - 5.9 / 3.9 - 5.3 cm LV Systolic Diameter PLAX 3.9 cm IVS Diastolic Thickness 1.8 cm 0.6 - 1.0 / 0.6 - 0.9 cm LVPW Diastolic Thickness 1.3 cm 0.6 - 1.0 / 0.6 - 0.9 cm LV Relative Wall Thickness 0.7 RV Internal Dim ED PLAX 2.6 cm M-MODE Aortic Root Diameter MM 2.9 cm LA Systolic Diameter MM 4.2 cm LA Ao Ratio MM 1.4 AV Cusp Separation MM 2.0 cm DOPPLER MV Peak Velocity 90.2 cm/s MV Peak Gradient 3.3 mmHg MV Mean Velocity 36.3 cm/s MV Mean Gradient 1.0 mmHg Mitral E Point Velocity 82.9 cm/s Mitral A Point Velocity 42.0 cm/s Mitral E to A Ratio 2.0 LV E' Lateral Velocity 7.4 cm/s Mitral E to LV E' Lateral Ratio 11.2 LV E' Septal Velocity 7.7 cm/s Mitral E to LV E' Septal Ratio 10.8 FINDINGS LEFT VENTRICLE The left ventricular systolic function is severely reduced with an estimated ejection fraction in th e range of 30-35%. Normal left ventricular size. Mild concentric left ventricular hypertrophy. RIGHT VENTRICLE Normal right ventricular size and systolic function. LEFT ATRIUM The left atrial size is upper limits of normal. RIGHT ATRIUM The right atrial size is normal. ATRIAL SEPTUM Normal atrial septal thickness without atrial level shunting by limited color doppler interrogation. AORTA The aortic root and proximal ascending aorta are normal in size on limited imaging. MITRAL VALVE Structurally normal mitral valve. [id number] mitral valve regurgitation. AORTIC VALVE Trileaflet aortic valve. TRICUSPID VALVE Structurally normal tricuspid valve. There is mild tricuspid valve regurgitation. PULMONARY VALVE The pulmonary valve is not well visualized. VESSELS The inferior vena cava is normal in size. PERICARDIUM No pericardial effusion. Thang Correia MD, FACC (Electronically Signed) Final Date:16 March 2017 12:49
[2017-03-16] MEDS ORDERED: REGADENOSON INJ 0.4 MG/5 ML SYR ONE (15:59)
--- NOTE | 2017-03-16 16:28 | OTSOAPIP ---
TIME SESSION COMPLETED: 1440 RECEIVED OCCUPATIONAL THERAPY ORDERS. ATTEMPTED TO SEE PATIENT, HOWEVER PATIENT JUST LEFT OFF FLOOR FOR STRESS TEST AND WILL BE AWAY FOR AN EXTENDED TIME PERIOD . WILL REATTEMPT TOMORROW. INTERDISCIPLINARY COMMUNICATION: REVIEWED ELECTRONIC MEDICAL RECORD Therapist: Marianne Baumann, OTR/L Signature on file
[2017-03-16] MEDS: LEVOFLOXACIN 750 MG PREMIX INJ 150 ML IV SCH (16:31)
[2017-03-16] MEDS: ENOXAPARIN SODIUM 40 MG/0.4 ML SYRINGE SQ SCH (16:31)
[2017-03-16] MEDS: POLYETHYLENE GLYCOL 17 GM PKG PO SCH (16:31)
--- NOTE | 2017-03-16 17:00 | RADRPT ---
EXAM DATE/TIME: 03/16/2017 14:25 [facility] COMPARISON: No previous studies available for comparison. INDICATIONS : Cardiomyopathy. Angina. Coronary artery disease. DOSE: 35.6 mCi Tc99m Myoview at stress. 11 mCi Tc99m Myoview at rest. 0.4 mg Lexiscan STRESS SYMPTOMS: Shortness of breath. EJECTION FRACTION: 39% MEDICAL HISTORY : Congestive hearrt failure. Hypertension. Chronic obstructive pulmonary disease. SURGICAL HISTORY : Hysterectomy. Inguinal hernia repair. ENCOUNTER: Initial ACUITY: 1 day PAIN SCALE: 2/10 LOCATION: Bilateral chest TECHNIQUE: The patient underwent pharmacologic stress with infusion of prescribed dose. Continuous ECG tracing was monitored during stress. Gated SPECT imaging was performed after stress and conventional SPECT i maging was performed at rest. The examination was performed on a SPECT/CT scanner, both attenuation and non-corrected datasets were reviewed. FINDINGS: DISTRIBUTION: The maximum perfused segment at stress is in the anterolateral wall. PERFUSION STUDY: The examination demonstrates a large in size, moderate in severity, fixed perfusion defect involving the cardiac septum. No reversible perfusion defect is identified. GATED STUDY: There is hypokinesis of the cardiac septum with dilation of the ventricular cavity. The ejection frac tion is estimated at 39%. CONCLUSION: 1. Large, fixed perfusion defect involving the septum suggesting infarct. There is dilation of the ve ntricular cavity with hypokinesis of the septum evident on the gated data. No reversible perfusion de fect is identified. RISK CATEGORY: High (>3% Annual Mortality Rate) Enoch Lim MD on March 16, 2017 at 16:56 Board Certified Radiologist. This report was verified electronically.
[2017-03-17] VITALS (8 sets, daily range): BP systolic 103–153; BP diastolic 58–95; PULSE 59–84; RESP 18–20; TEMP 97.3–98.3; O2SAT 95–99
[2017-03-17] MEDS ORDERED: DEFIB EXTERNAL (08:01)
--- NOTE | 2017-03-17 08:01 | PD.CARD.PN ---
Subjective Subjective Remarks breathing improved, still some constant chest pressure (Kemar Buchanan) Objective Vital Signs / I&O Vital Signs Date Time Temp Pulse Resp B/P (MAP) Pulse Ox O2 Delivery O2 Flow Rate FiO2 03/17/17 04:25 97.3 62 18 103/58 (73) 95 03/17/17 04:00 Room Air 03/17/17 00:05 97.3 71 18 116/74 (88) 96 03/17/17 00:00 Room Air 03/16/17 23:32 97 03/16/17 20:00 82 03/16/17 20:00 Room Air 03/16/17 17:45 98.1 65 20 136/83 (100) 98 03/16/17 17:34 183/83 (116) 03/16/17 17:04 98.1 70 20 154/105 (121) 98 03/16/17 16:40 91 03/16/17 12:00 97.7 53 20 131/82 (98) 97 03/16/17 09:20 123/84 (97) 03/16/17 08:00 64 I/O 03/16/17 03/16/17 03/16/17 03/17/17 03/17/17 03/17/17 07:00 15:00 23:00 07:00 15:00 23:00 Intake Total 480 ml 900 ml 240 ml Output Total 950 ml 350 ml Balance 480 ml -50 ml -110 ml Intake Oral 480 ml 750 ml 240 ml IV Total 150 ml Output Urine Total 950 ml 350 ml # Bowel Movements 0 Physical Exam GENERAL: morbidly obese NECK: No JVD. No carotid bruit. CARDIOVASCULAR: Regular rate and rhythm. S1/S2 no murmur, rub, or gallop. RESPIRATORY: No accessory muscle use. Clear to auscultation. Breath sounds equal bilaterally. GASTROINTESTINAL: Abdomen soft, non-tender, nondistended. MUSCULOSKELETAL: Extremities without clubbing, cyanosis, or edema. Laboratory Laboratory Tests Test 03/16/17 08:51 Blood Urea Nitrogen 20 MG/DL Creatinine 0.99 MG/DL Random Glucose 280 MG/DL Total Protein 7.4 GM/DL Albumin 3.3 GM/DL Calcium Level 8.8 MG/DL Phosphorus Level 3.4 MG/DL Magnesium Level 1.7 MG/DL Alkaline Phosphatase 100 U/L Aspartate Amino Transf (AST/SGOT) 23 U/L Alanine Aminotransferase (ALT/SGPT) 34 U/L Total Bilirubin 0.8 MG/DL Sodium Level 135 MEQ/L Potassium Level 4.0 MEQ/L Chloride Level 99 MEQ/L Carbon Dioxide Level 29.9 MEQ/L Anion Gap 6 MEQ/L Estimat Glomerular Filtration Rate 72 ML/MIN Hemoglobin A1c 9.7 % Total Creatine Kinase 100 U/L Troponin I LESS THAN 0.02 NG/ML Free Thyroxine 0.98 NG/DL Thyroid Stimulating Hormone 3rd Gen 0.773 uIU/ML (Kemar Buchanan) Assessment and Plan Problem List: (1) Hypertension ICD Codes: I10 - Essential (primary) hypertension (2) CHF (congestive heart failure) ICD Codes: I50.9 - Heart failure, unspecified (3) CAD (coronary artery disease) ICD Codes: I25.10 - Atherosclerotic heart disease of minto coronary artery without angina pectoris (4) Ischemic cardiomyopathy ICD Codes: I25.5 - Ischemic cardiomyopathy Assessment and Plan CAD and ischemic cardiomyopathy - Lexiscan shows no ischemia and we will proceed with medical management. We will continue the ARB, stop the clonidine and convert diuretic to PO. Start referral for Life Vest. Continue to maximize medical therapy over the next three months and repeat 2D echo HTN - controlled and management as stated above Acute systolic CHF - as above (Kemar Buchanan) Assessment and Plan agree with above atypical CP symptoms cardiomyopathy with CHF lexiscan suggesting it is ischemic in LAD distribution but no ischemia med mgt asa statin ARB. stop clonidine consider low dose BB, if HR allows LifeVest for increased risk of sudden cardiac 3month echo FU EF. improved symptoms convert to PO lasix DC planning FU PCP (Thang Correia MD) Problem Qualifiers (1) Hypertension: Qualified Codes: I10 - Essential (primary) hypertension (2) CHF (congestive heart failure): Qualified Codes: I50.21 - Acute systolic (congestive) heart failure Kemar Buchanan Mar 17, 2017 08:01 Thang Correia MD Mar 17, 2017 08:13
[2017-03-17] MEDS: VALSARTAN 160 MG TAB PO SCH (08:15)
[2017-03-17] MEDS: guaiFENesin E.R. 600 MG TAB PO SCH ×2 (08:15→21:41)
[2017-03-17] MEDS: ASPIRIN 81 MG CHEW TAB CHEW SCH (08:15)
[2017-03-17] MEDS: PANTOPRAZOLE SOD 40 MG DELAYED RELEASE TAB PO SCH (08:15)
[2017-03-17] MEDS: SODIUM CHLORIDE 0.9% FLUSH 10 ML FLUSH IV FLUSH SCH ×2 (08:16→21:42)
[2017-03-17] MEDS: POLYETHYLENE GLYCOL 17 GM PKG PO SCH (08:16)
[2017-03-17] MEDS: POTASSIUM CHLORIDE 20 MEQ CONTROLLED RELEASE TAB PO SCH ×2 (08:16→21:41)
[2017-03-17] MEDS: DOCUSATE SODIUM 50 MG/SENNA 8.6 MG TAB PO SCH ×2 (08:16→21:00)
[2017-03-17] MEDS: ACETAMINOPHEN 325 MG TAB PO PRN ×2 (08:16→21:40)
[2017-03-17] MEDS: FUROSEMIDE 40 MG TAB PO SCH ×2 (08:59→16:32)
[2017-03-17 09:02] LABS: HEMATOCRIT 39.7 % (35.0-46.0); MEAN CELL VOLUME 79.4 FL (80.0-100.0); MEAN CORPUSCULAR HEMOGLOBIN 25.7 PG (27.0-34.0); MEAN CORPUSCULAR HGB CONC 32.4 % (32.0-36.0); PLATELET COUNT 294 TH/MM3 (150-450); RED BLOOD COUNT 5.01 MIL/MM3 (4.00-5.30); RED CELL DISTRIBUTION WIDTH 15.7 % (11.6-17.2); REVIEW FLAG FINAL; WHITE BLOOD COUNT 9.9 TH/MM3 (4.0-11.0)
[2017-03-17] MEDS: INSULIN ASPART SUPPLEMENTAL SCALE SQ SCH ×4 (09:04→22:00)
--- NOTE | 2017-03-17 09:16 | MB ---
cc: BIANCA VALENZUELA M.D. DATE OF CONSULTATION 03/17/2017 REASON FOR CONSULTATION Shortness of breath. HISTORY OF PRESENT ILLNESS Mrs. Tarango is a 51-year-old -[place] female who presents to the emergency room in [place] with shortness of breath and chest tightness. She does have a history of bronchial asthma and was seen in the emergency room recently with shortness of breath, was given bronchodilators and steroid therapy and discharged home. Apparently admission to the hospital was advised, however the patient declined. Again has chest tightness upon presentation with increasing shortness of breath seen by cardiology and is being evaluated at this time. The patient's shortness of breath has improved. No fever, no chills, no cough or expectoration. As well, she has a history of obstructive sleep apnea and is on C-PAP therapy at present. PAST MEDICAL HISTORY 1. Hypertension 2. Diabetes mellitus 3. Obstructive sleep apnea on C-PAP 4. Bronchial asthma 5. Previous hysterectomy 6. Has a bladder stimulator. MEDICATIONS AT HOME 1. Prednisone 2. Lasix 3. Metformin 4. Clonidine 5. Valsartan ALLERGIES None known to medication CURRENT MEDICATIONS Include: 1. Aspirin 1. Levalox 2. Zofran as needed. 3. Compazine p.r.n. 4. Ambien 5. Percocet 6. Morphine as needed 7. Lactulose 8. Dulcolax 9. Mucinex 10. Levofloxacin 11. Protonix FAMILY HISTORY Positive for diabetes, hypertension, and coronary artery disease. SOCIAL HISTORY Does not smoke, does not drink. No TB or industrial exposure. REVIEW OF SYSTEMS A 12-point review of systems as per HPI and past history otherwise negative. PHYSICAL EXAM On exam, the patient is alert. VITAL SIGNS: Temperature 97, pulse 70, respirations 18, blood pressure 130/70, O2 sat 98% on room air. HEENT: Exam unremarkable. Eyes without icterus. NECK: Without adenopathy or thyroid enlargement. Central trachea. CHEST: No dullness to percussion, clear to auscultation. CARDIAC: PMI distant. S1-S2 audible. No murmur or rub. ABDOMEN: Lax. Bowel sounds audible. EXTREMITIES: No clubbing, cyanosis or edema. IMPRESSION 1. Atypical chest pain and chest tightness. 2. History of bronchial asthma. 3. Obstructive sleep apnea on C-PAP. 4. Obesity 5. Diabetes mellitus 6. Hypertension PLAN The patient's shortness of breath may very well be related to her history of bronchial asthma, however, she is without significant symptomatology at present. We will obtain baseline pulmonary function to assess severity of underlying bronchial obstruction and the need for long-term maintenance therapy. Her oxygenation is quite adequate with her oxygen saturation on room air between 95 and 98%. Low probability, we will obtain a CT angiogram to assure the absence of pulmonary emboli which required her repeat admissions to the emergency room. Bronchodilator therapy will be given as needed. She is to continue her C-PAP therapy. She has brought her machine with her to the hospital. I do thank you for asking me to partake in Mrs. Tarango's care. Bianca Valenzuela MD WWW/SHAWN /8:44 AM /8:53 AM
[2017-03-17] MEDS ORDERED: INFLUENZA VIRUS VACCINE (QUADRIVALENT) 0.5 ML SYR IM ONE (10:00)
[2017-03-17] MEDS ORDERED: FURO40TA PO (10:18)
[2017-03-17] MEDS ORDERED: POTA20TA5 PO (10:18)
[2017-03-17] MEDS ORDERED: ASPI81CH25 CHEW (10:18)
--- NOTE | 2017-03-17 10:26 | RADRPT ---
EXAM DATE/TIME: 03/17/2017 09:41 [facility] COMPARISON: CT PULMONARY ANGIOGRAM, March 15, 2017, 11:45. INDICATIONS : Chest pressure. IV CONTRAST: 70 cc Omnipaque 350 (iohexol) IV RADIATION DOSE: 23.07 CTDIvol (mGy) MEDICAL HISTORY : Cardiovascular disease. Hypertension. SURGICAL HISTORY : Loop recorder. ENCOUNTER: Initial ACUITY: 1 day PAIN SCALE: 4/10 LOCATION: Bilateral upper chest TECHNIQUE: Volumetric scanning of the chest was performed using a pulmonary embolism protocol MIP images were re constructed. Using automated exposure control and adjustment of the mA and/or kV according to patien t size, radiation dose was kept as low as reasonably achievable to obtain optimal diagnostic quality images. DICOM format image data is available electronically for review and comparison. Follow-up recommendations for detected pulmonary nodules are based at a minimum on nodule size and pa tient risk factors according to Fleischner Society Guidelines. FINDINGS: Examination of the pulmonary vasculature demonstrates good filling of the main, lobar and segmental b ranches. There are no filling defects to suggest pulmonary embolism. Multiplanar reconstructions are also unremarkable. There is subsegmental atelectasis in the both bases. Examination of the mediastinum demonstrates no abnormally enlarged lymph nodes by CT criteria. No axillary or hilar abnormalities are identified. Co ronary artery calcifications are not present. The visualized upper abdomen demonstrates no abnormalit y. CONCLUSION: 1. No evidence of pulmonary embolism. Johny Peralta MD on March 17, 2017 at 10:11 Board Certified Radiologist. This report was verified electronically.
[2017-03-17] MEDS ORDERED: ATOR20TA15 PO (10:27)
--- NOTE | 2017-03-17 10:34 | HHI.PR ---
Subjective Remarks The patient just got back from her CAT scan. She said that she felt dizzy earlier while washing up, but that is better. She worked with physical therapy and did well. She would like to go home today if possible. She says her breathing is stable. She denies any chest pain at this time. Discussed with case management. Objective Vitals Vital Signs Date Time Temp Pulse Resp B/P (MAP) Pulse Ox O2 Delivery O2 Flow Rate FiO2 03/17/17 08:04 97.3 65 19 126/61 (82) 98 03/17/17 04:25 97.3 62 18 103/58 (73) 95 03/17/17 04:00 Room Air 03/17/17 00:05 97.3 71 18 116/74 (88) 96 03/17/17 00:00 Room Air 03/16/17 23:32 97 03/16/17 20:00 82 03/16/17 20:00 Room Air 03/16/17 17:45 98.1 65 20 136/83 (100) 98 03/16/17 17:34 183/83 (116) 03/16/17 17:04 98.1 70 20 154/105 (121) 98 03/16/17 16:40 91 03/16/17 12:00 97.7 53 20 131/82 (98) 97 I/O 03/16/17 03/16/17 03/16/17 03/17/17 03/17/17 03/17/17 07:00 15:00 23:00 07:00 15:00 23:00 Intake Total 480 ml 900 ml 240 ml Output Total 950 ml 350 ml Balance 480 ml -50 ml -110 ml Intake Oral 480 ml 750 ml 240 ml IV Total 150 ml Output Urine Total 950 ml 350 ml # Bowel Movements 0 Result Diagram: 03/17/17 0815 03/16/17 0851 Imaging Last Impressions Myocardial Perfusion Scan Nuc Med 03/16/17 0000 Signed Impressions: Service Date/Time: Thursday, March 16, 2017 14:25 - CONCLUSION: 1. Large, fixed perfusion defect involving the septum suggesting infarct. There is dilation of the ventricular cavity with hypokinesis of the septum evident on the gated data. No reversible perfusion defect is identified. RISK CATEGORY: High (>3%% Annual Mortality Rate) Enoch Lim MD Objective Remarks GENERAL: This is a well-nourished, well-developed obese patient, in NAD. SKIN: No rashes, ecchymoses or lesions. Cool and dry. HEAD: Atraumatic. Normocephalic. No temporal or scalp tenderness. EYES: Pupils equal round and reactive. Extraocular motions intact. No scleral icterus. No injection or drainage. ENT: Nose without bleeding, purulent drainage. Throat without erythema, tonsillar hypertrophy or exudate. Uvula midline. Airway patent. NECK: Trachea midline. No lymphadenopathy. Supple, nontender, no meningeal signs. CARDIOVASCULAR: Regular rate and rhythm without murmurs, gallops, or rubs. RESPIRATORY: . Breath sounds equal bilaterally. No wheezes, rales, or rhonchi. GASTROINTESTINAL: Abdomen soft, non-tender, nondistended. No hepato-splenomegaly , or palpable masses. No guarding. MUSCULOSKELETAL: Extremities without clubbing, cyanosis. Trace BLE edema. No joint tenderness, effusion. NEUROLOGICAL: Awake and alert. Able to move all extremities. Normal speech. PSYCH: Mood and affect appropriate. Medications and IVs Current Medications Medications (Trade) Dose Ordered Sig/Lidia Route Start Time Stop Time Status Last Admin (D50w (Syr) Inj) 50 ml UNSCH PRN IV PUSH 03/15/17 13:30 (Glucagon Inj) 1 mg UNSCH PRN OTHER 03/15/17 13:30 (NovoLOG SUPPLEMENTAL SCALE) 1 ACHS SLIDING SCALE SQ 03/15/17 17:00 03/17/17 09:04 (Glucophage) 1,000 mg BIDPC PO 03/15/17 18:00 Future Hold (Diovan) 320 mg DAILY PO 03/16/17 09:00 03/17/17 08:15 (NS Flush) 2 ml UNSCH PRN IV FLUSH 03/15/17 13:30 (NS Flush) 2 ml BID IV FLUSH 03/15/17 21:00 03/17/17 08:16 (KCl) 20 meq BID PO 03/15/17 21:00 03/17/17 08:16 (Aspirin Chew) 81 mg DAILY CHEW 03/16/17 09:00 03/17/17 08:15 (Lovenox Inj) 40 mg Q24H SQ 03/15/17 14:00 03/16/17 16:31 (Tylenol) 650 mg Q4H PRN PO 03/15/17 13:30 (Zofran Inj) 4 mg Q6H PRN IVP 03/15/17 13:30 (Compazine Supp) 25 mg Q12H PRN RECTAL 03/15/17 13:30 (Ambien) 5 mg HS PRN PO 03/15/17 13:30 (Tylenol) 650 mg Q6H PRN PO 03/15/17 13:30 03/17/17 08:16 (Percocet 5-325 Mg) 1 tab Q6H PRN PO 03/15/17 13:30 (Percocet 10-325 Mg) 1 tab Q6H PRN PO 03/15/17 13:30 (Morphine Inj) 2 mg Q3H PRN IV PUSH 03/15/17 13:30 (Morphine Inj) 4 mg Q3H PRN IV PUSH 03/15/17 13:30 (Narcan Inj) 0.4 mg UNSCH PRN IV PUSH 03/15/17 13:30 (Jennie-Colace) 1 tab BID PO 03/15/17 21:00 03/17/17 08:16 (Milk Of Magnesia Liq) 30 ml Q12H PRN PO 03/15/17 13:30 (Senokot) 17.2 mg Q12H PRN PO 03/15/17 13:30 03/15/17 17:13 (Dulcolax Supp) 10 mg DAILY PRN RECTAL 03/15/17 13:30 (Lactulose Liq) 30 ml DAILY PRN PO 03/15/17 13:30 (Mucinex Er) 600 mg BID PO 03/15/17 13:45 03/17/17 08:15 (Duoneb Neb) 1 ampule Q4HR NEB PRN NEB 03/15/17 13:45 (Protonix) 40 mg DAILY PO 03/15/17 13:45 03/17/17 08:15 Levofloxacin/ Dextrose 150 ml @ 100 mls/hr Q24H IV 03/15/17 14:00 03/16/17 16:31 (Miralax) 17 gm DAILY PO 03/16/17 11:45 03/16/17 16:31 (Pneumovax-23 Inj) 25 mcg ONCE ONCE IM 03/18/17 10:00 9/28/17 10:01 (Lasix) 40 mg BID@09,18 PO 03/17/17 09:00 03/17/17 08:59 (NovoLIN N INJ) 20 units DAILY@08 SQ 03/17/17 10:15 A/P Problem List: (1) Accelerated hypertension ICD Code: I10 - Essential (primary) hypertension Status: Acute (2) Obese ICD Code: E66.9 - Obesity, unspecified (3) CHF (congestive heart failure) ICD Code: I50.9 - Heart failure, unspecified (4) Hypertension ICD Code: I10 - Essential (primary) hypertension (5) Diabetes ICD Code: E11.9 - Type 2 diabetes mellitus without complications Assessment and Plan 51-year-old female with a past medical history significant for asthma, uncontrolled hypertension, diabetes and RY who presents to [facility] with complaints of chest tightness and shortness of breath 4 days. Chest pressure - Improved after nitropaste applied - troponin peaked at 0.04. - EKG reviewed, nonspecific T-wave abnormality, no evidence of ischemic changes - appreciate cardiology consult. Stress test without a reversible defect. - ASA 81mg daily. - pain control as needed. - Continuous cardiac monitoring. CHF exacerbation - CXR showing minimal left basilar opacity, enlarged cardiac silhouette and improved positive fluid balance from previous chest x-ray. - BNP 430. - Echo with EF 30-35%. - Fluid restricted heart healthy diet. - Lasix 40mg IV BID. Now switched to 40 mg PO BID. - Monitor electrolytes. - Monitor intake/output. - PT/OT eval/tx. - follow up with cardiology. LifeVest ordered. Continue ASA, ARB, statin. Pneumonia Hx of asthma RY on Bipap - Chest x-ray revealing minimal left basilar opacity and atelectasis - CTA 03/15 revealed groundglass infiltrates and subcentimeter mediastinal and right hilar lymph nodes. No evidence of PE or pleural effusions. - Consulted pulmonology, who ordered CT PE again 03/17 which was still negative for PE. - continue IV Levaquin for now. - Guaifenesin ER 600 mg by mouth twice a day. - scheduled Duonebs. - IS, encourage use. - supplemental oxygen as needed to keep O2 sats >92%. Leukocytosis - Likely secondary to steroid use - Patient is afebrile. - UA ordered - Repeat CBC. Resolved. Diabetes - Elevated blood sugar of 316 admission. Patient was on oral steroids. A1c 9.7%. - Hold metformin. - Accu-Cheks. - Insulin sliding scale. - Diabetic heart healthy diet. - obtain HgbA1c. - NPH 20 units daily. Hypertension - Controlled - Continue patient on home dose of Diovan 320 mg daily. - d/c clonidine per cards. - consider low dose beta renee. Constipation - likely contributing to patients mild abdominal pain - Jennie-Colace twice a day scheduled. Standing Miralax. Lactulose x 1. - Dulcolax and Lactulose prn - Monitor for BM GI prophylaxis - Pantoprazole 40 mg daily DVT prophylaxis - Lovenox 40 mg subcutaneous daily - Bilateral AMY/SCDs Discharge Planning D/c once LifeVest is obtained Problem Qualifiers (1) CHF (congestive heart failure): Qualified Codes: I50.21 - Acute systolic (congestive) heart failure (2) Hypertension: Qualified Codes: I10 - Essential (primary) hypertension Curtis Adams DO Mar 17, 2017 10:34
[2017-03-17] MEDS ORDERED: LEVA750T9 PO (10:36)
--- NOTE | 2017-03-17 10:38 | HHI.DCPOC ---
Discharge Care Plan Diagnosis: (1) Ischemic cardiomyopathy (2) CAD (coronary artery disease) (3) Hypertension (4) Diabetes (5) Pneumonia Goals to Promote Your Health * To prevent worsening of your condition and complications * To maintain your health at the optimal level Directions to Meet Your Goals Take your medications as prescribed Follow your dietary instruction Follow activity as directed Keep your appointments as scheduled Take your immunizations and boosters as scheduled If your symptoms worsen call your PCP, if no PCP go to Urgent Care Center or Emergency Room Smoking is Dangerous to Your Health. Avoid second hand smoke Call the 24-hour hour crisis hotline for domestic abuse at Curtis Adams DO Mar 17, 2017 10:38
[2017-03-17 10:40] LABS: BICARBONATE 27.1 MEQ/L (21.0-32.0); POTASSIUM 3.9 MEQ/L (3.5-5.1)
[2017-03-17 11:17] LABS: HDL CHOLESTEROL 52.5 MG/DL (40.0-60.0)
[2017-03-17] MEDS: INSULIN HUMAN NPH 1,000 UNITS/10 ML VIAL SQ SCH (13:27)
[2017-03-17] MEDS: LEVOFLOXACIN 750 MG PREMIX INJ 150 ML IV SCH (13:28)
[2017-03-17] MEDS: ENOXAPARIN SODIUM 40 MG/0.4 ML SYRINGE SQ SCH (13:34)
[2017-03-17] MEDS ORDERED: LISINOPRIL 20 MG TAB PO SCH (15:45)
[2017-03-17] MEDS ORDERED: cloNIDine HCL 0.1 MG TAB PO PRN (15:45)
[2017-03-17] MEDS ORDERED: PILL SPLITTER OTHER PRN (16:15)
[2017-03-17] MEDS: LISINOPRIL 10 MG TAB PO SCH (18:04)
[2017-03-17] MEDS ORDERED: ATORVASTATIN 40 MG TAB PO SCH (21:00)
[2017-03-17] MEDS ORDERED: ATORVASTATIN 20 MG TAB PO SCH (21:00)
[2017-03-17] MEDS: METOPROLOL TARTRATE 25 MG TAB PO SCH (21:40)
[2017-03-18] VITALS: BP 120/76; PULSE 61; RESP 20; TEMP 97.2; O2SAT 98
[2017-03-18 04:00] VITALS: BP 96/61; PULSE 59; RESP 20; TEMP 97.1; O2SAT 99
[2017-03-18 08:00] VITALS: BP 115/80; PULSE 63; PULSE 73; RESP 18; TEMP 97.5; O2SAT 94
--- NOTE | 2017-03-18 08:28 | HHI.PR ---
Subjective Remarks ALERT NO SOB AT REST CTA NO PE Objective Vital Signs Date Time Temp Pulse Resp B/P (MAP) Pulse Ox O2 Delivery O2 Flow Rate FiO2 03/18/17 04:00 97.1 59 20 96/61 (73) 99 03/18/17 00:00 97.2 61 20 120/76 (91) 98 03/17/17 20:45 73 03/17/17 20:00 98.3 79 20 111/71 (84) 99 03/17/17 16:34 97.5 84 18 153/95 (114) 99 03/17/17 12:03 98.2 71 19 139/82 (101) 96 I/O 03/17/17 03/17/17 03/17/17 03/18/17 03/18/17 03/18/17 07:00 15:00 23:00 07:00 15:00 23:00 Intake Total 240 ml 480 ml 480 ml Output Total 350 ml 1000 ml 1000 ml Balance -110 ml -520 ml -520 ml Intake Oral 240 ml 480 ml 480 ml Output Urine Total 350 ml 1000 ml 1000 ml # Voids 8 # Bowel Movements 0 3 0 Result Diagram: 03/17/1715 03/17/1715 Objective Remarks GENERAL: SKIN: Warm and dry. HEAD: Atraumatic. Normocephalic. EYES: Pupils equal and round. No scleral icterus. No injection or drainage. ENT: No nasal bleeding or discharge. Mucous membranes pink and moist. NECK: Trachea midline. No JVD. CARDIOVASCULAR: Regular rate and rhythm. RESPIRATORY: No accessory muscle use. Clear to auscultation. Breath sounds equal bilaterally. GASTROINTESTINAL: Abdomen soft, non-tender, nondistended. Hepatic and splenic margins not palpable. MUSCULOSKELETAL: Extremities without clubbing, cyanosis, or edema. No obvious deformities. NEUROLOGICAL: Awake and alert. No obvious cranial nerve deficits. Motor grossly within normal limits. Five out of 5 muscle strength in the arms and legs. Normal speech. PSYCHIATRIC: Appropriate mood and affect; insight and judgment normal. Assessment and Plan Assessment and Plan ASSESSMENT ASTHMA STABLE RY ON CPAP OBESITY NO PE PLAN CONTINUE CPAP CHECK PFT CARDIAC EVALUATION IN PROGRESS LOOSE WEIGHT Bianca Valenzuela MD Mar 18, 2017 08:28
[2017-03-18] MEDS: DOCUSATE SODIUM 50 MG/SENNA 8.6 MG TAB PO SCH (09:00)
[2017-03-18] MEDS: POLYETHYLENE GLYCOL 17 GM PKG PO SCH (09:00)
[2017-03-18] MEDS: SODIUM CHLORIDE 0.9% FLUSH 10 ML FLUSH IV FLUSH SCH (09:00)
[2017-03-18] MEDS: INSULIN HUMAN NPH 1,000 UNITS/10 ML VIAL SQ SCH (09:12)
[2017-03-18] MEDS: INSULIN ASPART SUPPLEMENTAL SCALE SQ SCH ×3 (09:13→16:25)
[2017-03-18] MEDS: POTASSIUM CHLORIDE 20 MEQ CONTROLLED RELEASE TAB PO SCH (09:13)
[2017-03-18] MEDS: FUROSEMIDE 40 MG TAB PO SCH (09:14)
[2017-03-18] MEDS: VALSARTAN 160 MG TAB PO SCH (09:14)
[2017-03-18] MEDS: PANTOPRAZOLE SOD 40 MG DELAYED RELEASE TAB PO SCH (09:14)
[2017-03-18] MEDS: ASPIRIN 81 MG CHEW TAB CHEW SCH (09:14)
[2017-03-18] MEDS: guaiFENesin E.R. 600 MG TAB PO SCH (09:14)
[2017-03-18] MEDS: LISINOPRIL 10 MG TAB PO SCH (09:18)
[2017-03-18] MEDS: METOPROLOL TARTRATE 25 MG TAB PO SCH (09:19)
[2017-03-18] MEDS ORDERED: PNEUMOCOCCAL POLYVALENT INJ 25 MCG/0.5 ML SYR IM ONE (10:00)
[2017-03-18] MEDS ORDERED: FURO40TA PO (11:25)
--- NOTE | 2017-03-18 11:25 | PD.CARD.PN ---
Subjective Subjective Remarks no complaints sitting comfortably in chair Objective Medications Active Medications Atorvastatin Calcium (Lipitor) 20 mg HS PO Last administered on 03/17/17 21:41 ; Admin Dose 20 MG; Start 03/17/17 at 21:00 Atorvastatin Calcium (Lipitor) 40 mg HS PO; Start 03/17/17 at 21:00; Stop at 21:00; Status DC Clonidine (Catapres) 0.2 mg Q6H PRN PO; Start 03/17/17 at 15:45; Stop 03/17/17 at 15:45; Status DC Lisinopril (Prinivil) 5 mg DAILY PO Last administered on 03/18/17 09:18; Admin Dose 5 MG; Start 03/17/17 at 17:00 Lisinopril (Prinivil) 40 mg DAILY PO; Start 03/17/17 at 15:45; Stop 03/17/17 at 15:45; Status DC Metoprolol Tartrate (Lopressor) 12.5 mg Q12HR PO Last administered on 03/18/17 09:19; Admin Dose 12.5 MG; Start 03/17/17 at 21:00 Miscellaneous (Pill Splitter) 1 ea UNSCH PRN OTHER; Start 03/17/17 at 16:15 Pneumococcal Polyvalent Vaccine (Pneumovax-23 Inj) 25 mcg ONCE ONCE IM Last administered on 03/18/17 09:22; Admin Dose 25 MCG; Start 03/18/17 at 10:00; Stop 03/18/17 at 10:01; Status DC Vital Signs / I&O Vital Signs Date Time Temp Pulse Resp B/P (MAP) Pulse Ox O2 Delivery O2 Flow Rate FiO2 03/18/17 08:00 97.5 63 18 115/80 (92) 94 03/18/17 04:00 97.1 59 20 96/61 (73) 99 03/18/17 00:00 97.2 61 20 120/76 (91) 98 03/17/17 20:45 73 03/17/17 20:00 98.3 79 20 111/71 (84) 99 03/17/17 16:34 97.5 84 18 153/95 (114) 99 03/17/17 12:03 98.2 71 19 139/82 (101) 96 I/O 03/17/17 03/17/17 03/17/17 03/18/17 03/18/17 03/18/17 07:00 15:00 23:00 07:00 15:00 23:00 Intake Total 240 ml 480 ml 480 ml Output Total 350 ml 1000 ml 1000 ml Balance -110 ml -520 ml -520 ml Intake Oral 240 ml 480 ml 480 ml Output Urine Total 350 ml 1000 ml 1000 ml # Voids 8 # Bowel Movements 0 3 0 Physical Exam GENERAL: SKIN: Warm and dry. HEAD: Normocephalic. EYES: No scleral icterus. No injection or drainage. NECK: Supple, trachea midline. No JVD or lymphadenopathy. CARDIOVASCULAR: Regular rate and rhythm without murmurs, gallops, or rubs. RESPIRATORY: Breath sounds equal bilaterally. No accessory muscle use. GASTROINTESTINAL: Abdomen soft, non-tender, nondistended. MUSCULOSKELETAL: No cyanosis, or edema. BACK: Nontender without obvious deformity. No CVA tenderness. Laboratory Last Impressions CT Angiography 03/17/17 0000 Signed Impressions: Service Date/Time: Friday, March 17, 2017 09:41 - CONCLUSION: 1. No evidence of pulmonary embolism. Johny Peralta MD Myocardial Perfusion Scan Nuc Med 03/16/17 0000 Signed Impressions: Service Date/Time: Thursday, March 16, 2017 14:25 - CONCLUSION: 1. Large, fixed perfusion defect involving the septum suggesting infarct. There is dilation of the ventricular cavity with hypokinesis of the septum evident on the gated data. No reversible perfusion defect is identified. RISK CATEGORY: High (>3%% Annual Mortality Rate) Enoch Lim MD Assessment and Plan Problem List: (1) Hypertension ICD Codes: I10 - Essential (primary) hypertension (2) CHF (congestive heart failure) ICD Codes: I50.9 - Heart failure, unspecified (3) CAD (coronary artery disease) ICD Codes: I25.10 - Atherosclerotic heart disease of [place] coronary artery without angina pectoris (4) Ischemic cardiomyopathy ICD Codes: I25.5 - Ischemic cardiomyopathy Assessment and Plan cardiomyopathy, possible ischemic etiology CHF, acute on chronic. well compensated now. cannot afford lifevest. 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 ok for DC today Problem Qualifiers (1) Hypertension: Qualified Codes: I10 - Essential (primary) hypertension (2) CHF (congestive heart failure): Qualified Codes: I50.21 - Acute systolic (congestive) heart failure Thang Correia MD Mar 18, 2017 11:25
[2017-03-18] MEDS ORDERED: METO25TA3 PO (11:26)
--- NOTE | 2017-03-18 11:31 | HHI.DS ---
Discharge Summary Admission Date Mar 15, 2017 at 16:25 Discharge Date: Mar 18, 2017 Admitting Diagnosis sCHF, SOB, PNEUMONIA (1) Accelerated hypertension ICD Code: I10 - Essential (primary) hypertension Status: Acute (2) Obese ICD Code: E66.9 - Obesity, unspecified (3) Hypertension ICD Code: I10 - Essential (primary) hypertension (4) Diabetes ICD Code: E11.9 - Type 2 diabetes mellitus without complications (5) Acute systolic ACC/AHA stage C congestive heart failure ICD Code: I50.21 - Acute systolic (congestive) heart failure Procedures none Brief History - From Admission This is 51-year-old female with a past medical history significant for asthma, hypertension, diabetes and RY who presents to [facility] with complaints of chest tightness and shortness of breath 4 days. Patient was seen in [place] on 03/13 with same complaints and was treated with Lasix, nebulizer and IV Solu-Medrol and discharged on short oral steroid burst and oral Lasix. Patient was offered admission but declined. Patient presents today due to having increased shortness of breath that is worse with deep inspiration, bending over and movement as well as having nonradicular anterior bilateral chest pain the patient describes as a pressure sensation. She attempted to go to work today but was unable to stay due to the severity of her symptoms. Patient states her chest tightness is similar to previous asthmatic attack she's had in the past. She's been using her Ventolin inhaler and nebulizer treatments at home without any improvement. She denies any previous hospitalization due to asthma exacerbation. Patient reports history of nonpostural dizziness but states this is chronic and she's had it "for years". She had a loop recorder implanted in 2013 due to multiple syncopal episodes without any significant findings. She denies any recent illness. She denies any fever chills or cough. She reports some mild left-sided abdominal pain and episode of nonbilious nonbloody vomiting 1 last night. She denies any urinary complaints. She reports constipation and states she's not had a normal bowel movement in 4 days. She does endorse intermittent lower extremity swelling for the past year but reports has been much worse for the past month and a half. She states it has improved since she was given the Lasix several days ago. Patient states she is no longer having any complaints of chest discomfort since the nitroglycerin paste was applied. In the ED, CTA reveals no evidence of pulmonary embolus but shows patchy groundglass infiltrates and atelectasis. CXR shows stable cardiomegaly with improved positive fluid balance and minimal left lower lobe atelectasis. Patient's glucose is elevated at 316. Patient states her blood sugars normally run in the mid 100 but it been elevated due to the prednisone she has been taking since Wednesday. BNP elevated at 430. CBC/BMP: 03/17/17 0815 03/17/17 0815 Significant Findings Laboratory Tests Test 03/15/17 20:10 03/16/17 03:07 03/16/17 08:51 03/17/17 08:15 Troponin I LESS THAN 0.02 NG/ML LESS THAN 0.02 NG/ML White Blood Count 12.6 TH/MM3 (4.0-11.0) Mean Corpuscular Volume 78.0 FL (80.0-100.0) 79.4 FL (80.0-100.0) Mean Corpuscular Hemoglobin 26.4 PG (27.0-34.0) 25.7 PG (27.0-34.0) Lymphocytes % 56 % (9-44) Blood Urea Nitrogen 20 MG/DL (7-18) 19 MG/DL (7-18) Random Glucose 280 MG/DL (74-106) 223 MG/DL (74-106) Albumin 3.3 GM/DL (3.4-5.0) Sodium Level 135 MEQ/L (136-145) Estimat Glomerular Filtration Rate 72 ML/MIN (>89) 84 ML/MIN (>89) Hemoglobin A1c 9.7 % (4.3-6.0) PE at Discharge NAD clear lungs BL no LE edema Hospital Course Patient was admitted, started on diuresis and antibiotics are clear for possible double presentation with CHF exacerbation and asthma exacerbation. Cardiology was consulted for an elevated troponin, echocardiogram was obtained which showed systolic dysfunction 30-35%. Patient had been started on metoprolol and continue her antibiotics. Pulmonology had also been consulted, CT angiogram was negative for pulmonary embolism. A Lexiscan was also performed with no reversible ischemia noted. She was saturating on room air by the end of her hospitalization. LifeVest was attempted to be obtained however patient was not financially able to afford this. Patient has met maximal benefit from hospitalization and is clinically stable for discharge. Pt Condition on Discharge: Stable Discharge Disposition: Discharge Home Discharge Time: > 30 minutes Discharge Instructions DIET: Follow Instructions for: Heart Healthy Diet, Diabetic Diet, Low Sodium Diet Additional Diet Instructions: low salt diet Activities you can perform: Weight Bearing as Vipin Follow up Referrals: Cardiology - [address] Correia PCP Follow-up - 1 Week Pulmonology - 2 Weeks with Bianca Valenzuela MD New Medications: Atorvastatin (Atorvastatin) 20 Mg Tab 20 MG PO HS for Cholesterol Management, #30 TAB 0 Refills Defibrillator Jacket (Defibrillator Jacket) 1 Ea Device EA EXTERNAL ONCE for cardiomyopathy, #1 3 Refills Energy = 150 Joules; VT Threshold = 150 BPM; VF Threshold = 200 BPM Use up to 90 days only Furosemide (Furosemide) 40 Mg Tab 40 MG PO DAILY for heart failure, #30 TAB 0 Refills Levofloxacin (Levaquin) 750 Mg Tablet 750 MG PO DAILY for Infection for 4 Days, #4 TAB 0 Refills Aspirin (Aspirin Low Strength) 81 Mg Chew 81 MG CHEW DAILY for Heart, #30 EA Metoprolol Tartrate (Metoprolol Tartrate) 25 Mg Tab 12.5 MG PO BID for heart failure, #60 TAB Potassium Chloride Microencaps (Potassium Chloride Microencaps) 20 Meq Tab 20 MEQ PO BID for Lasix, #60 TAB Continued Medications: Metformin (Metformin) 1,000 Mg Tab 1000 MG PO BIDPC for Blood Sugar Management, #60 TAB 0 Refills With meals Valsartan (Valsartan) 320 Mg Tab 320 MG PO DAILY, #30 TAB 0 Refills Discontinued Medications: Clonidine (Clonidine) 0.1 Mg Tab 0.1 MG PO BID for Blood Pressure Management, #60 TAB 0 Refills Furosemide (Lasix) 20 Mg Tab 20 MG PO DAILY for 7 Days, #30 TAB 0 Refills Prednisone (Prednisone) 20 Mg Tab 40 MG PO DAILY for 5 Days, #10 TAB 0 Refills Take 40 mg (2 tablets) daily for 5 days Lyndon Carrillo MD Mar 18, 2017 11:31
[2017-03-18 12:00] VITALS: BP 132/82; PULSE 68; RESP 18; TEMP 98.3; O2SAT 94
[2017-03-18] MEDS: LEVOFLOXACIN 750 MG PREMIX INJ 150 ML IV SCH (13:06)
[2017-03-18] MEDS: ENOXAPARIN SODIUM 40 MG/0.4 ML SYRINGE SQ SCH (13:07)
[2017-03-18 16:00] VITALS: BP 125/76; PULSE 76; RESP 18; TEMP 98.1; O2SAT 96
[2017-03-19] MEDS ORDERED: FUROSEMIDE 40 MG TAB PO SCH (09:00)
== END 2017-03-18 21:08 | disposition home or self-care (01) | DRG 291 ==
LOC: NEDDLT 16:15 → OBSVTOIN 16:25 → NEPGCP 16:25 → N04B 03-16 17:49
PROVIDERS: ADMIT Hospitalist; ATTEND Hospitalist
DX: I11.0 Hypertensive heart disease with heart failure (principal); J18.9 Pneumonia, unspecified organism; Z68.43 Body mass index [BMI] 50.0-59.9, adult; E11.65 Type 2 diabetes mellitus with hyperglycemia; E66.01 Morbid (severe) obesity due to excess calories; J45.901 Unspecified asthma with (acute) exacerbation; J98.11 Atelectasis; G47.33 Obstructive sleep apnea (adult) (pediatric); K59.00 Constipation, unspecified; I50.21 Acute systolic (congestive) heart failure; I25.10 Atherosclerotic heart disease of native coronary artery without angina pectoris; I25.5 Ischemic cardiomyopathy; Z23 Encounter for immunization; Z79.84 Long term (current) use of oral hypoglycemic drugs; Z79.82 Long term (current) use of aspirin
CPT/HCPCS: 71010; 71275; 78452; 80048; 80053; 80061; 82550; 82552; 82948; 83036; 83735; 83880; 84100; 84439; 84443; 84484; 85007; 85025; 85027; 85379; 85610; 85730; 90686; 90732; 93005; 93017; 93306; 94150; 96374; A9502; G8987-GO; G8987-GP; G8988-GO; G8988-GP; G8989-GO; J1650; J1815; J1940; J1956; J2785; Q2038; Q9967

== ENCOUNTER 2017-04-22 11:41 | Observation (INO) | payer OTHER ==
[~2017-04-22 11:41] MED LIST changes: +ASPI81CH25 CHEW; +ATOR20TA15 PO; -AUGM875T3 PO; -CIPR0.3S RIGHT EAR; -CLON0.1T PO; +DEFIB EXTERNAL; -FURO1TAB62 PO; +FURO40TA PO; +LEVA750T9 PO; +METO25TA3 PO; +POTA20TA5 PO; -PRED20 PO
[2017-04-22] MEDS ORDERED: DEXTROSE 50% IN WATER 50 ML VIAL(D50) IV PUSH PRN (13:45)
[2017-04-22] MEDS ORDERED: GLUCAGON 1 MG/ML VIAL OTHER PRN (13:45)
[2017-04-22] MEDS ORDERED: NALOXONE HCL 0.4 MG/ML AMP IV PUSH PRN (13:45)
[2017-04-22] MEDS ORDERED: NITROGLYCERIN 0.4 MG SL 25 TABS/BTL SL PRN (13:45)
[2017-04-22] MEDS ORDERED: SODIUM CHLORIDE 0.9% FLUSH 10 ML FLUSH IV FLUSH PRN (13:45)
[2017-04-22] MEDS: INSULIN ASPART SUPPLEMENTAL SCALE SQ SCH ×2 (17:00→22:14)
[2017-04-22 17:05] VITALS: BP 178/110
[2017-04-22 17:11] VITALS: PULSE 79; RESP 20; TEMP 95.8; O2SAT 95
--- NOTE | 2017-04-22 19:25 | HHI.HP ---
[facility] Service [facility] Primary Care Physician Unknown Admission Diagnosis Diagnoses: Travel History International Travel<30 Days: No Contact w/Intl Traveler <30 Da: No Traveled to Known Affected Are: No History of Present Illness 51-year-old female with a past medical history significant for congestive heart failure, recently discharged in February with a LifeVest, presented to the [facility] emergency department with new onset chest pain and hypertensive urgency. The patient's chest pain was relieved with nitroglycerin patch and her blood pressure is currently 178/110. She reports compliance with her blood pressure medications. Her teacher of the deaf/hard of hearing is Dr. Ornelas. EKG significant for nonspecific T-wave abnormality and LVH. Troponins negative. Patient remains hypertensive at 178/110. She reports headache and blurry vision. BNP 161. Patient endorses shortness of breath with ambulation which is baseline for her. Bilateral lower extremity edema present. Review of Systems Denies fever or chills Denies, otorrhea, rhinorrhea. Blurry vision as per history of present illness Denies sore throat and cough Positive chest pain, no palpitations, shortness of breath with ambulation No abdominal pain Denies constipation/diarrhea/nausea/vomiting Denies muscle pain/weakness No rashes Past Family Social History Past Medical History HTN Type 2 diabetes mellitus Congestive heart failure Coronary artery disease Asthma Obstructive sleep apnea Past Surgical History Cardiac catheterization in 2014 - per patient this was within normal limits Hysterectomy Loop recorder placement Bladder stimulator placement Umbilical hernia repair in childhood Tonsillectomy in childhood Reported Medications Reported Meds & Active Scripts Active Metoprolol Tartrate 25 Mg Tab 12.5 Mg PO BID Furosemide 40 Mg Tab 40 Mg PO DAILY Atorvastatin (Atorvastatin Calcium) 20 Mg Tab 20 Mg PO HS Potassium Chloride Microencaps 20 Meq Tab 20 Meq PO BID Aspirin Low Strength (Aspirin) 81 Mg Chew 81 Mg CHEW DAILY Defibrillator Jacket (Device) 1 Ea Device Ea EXTERNAL ONCE Energy = 150 Joules; VT Threshold = 150 BPM; VF Threshold = 200 BPM Use up to 90 days only Reported Metformin (Metformin HCl) 1,000 Mg Tab 1,000 Mg PO BIDPC With meals Valsartan 320 Mg Tab 320 Mg PO DAILY Allergies: Coded Allergies: No Known Allergies (Verified Allergy, Unknown, 04/22/17) Family History Mom with coronary artery disease, RA, hypertension and type 2 diabetes mellitus. Dad with coronary artery disease, hypertension and type 2 diabetes mellitus Social History Occasional alcohol. Never smoker. Remote marijuana use. Denies all other illicit drugs. Physical Exam Vital Signs Vital Signs Date Time Temp Pulse Resp B/P (MAP) Pulse Ox O2 Delivery O2 Flow Rate FiO2 04/22/17 17:11 95.8 79 20 95 04/22/17 17:05 178/110 (132) Physical Exam GENERAL: Obese female sitting up in bed SKIN: No rashes, ecchymoses or lesions. Cool and dry. HEAD: Atraumatic. Normocephalic. No temporal or scalp tenderness. EYES: Pupils equal round and reactive. Extraocular motions intact. No scleral icterus. No injection or drainage. ENT: Nose without bleeding, purulent drainage or septal hematoma. Throat without erythema, tonsillar hypertrophy or exudate. Uvula midline. Airway patent. NECK: Trachea midline. No JVD or lymphadenopathy. Supple, nontender, no meningeal signs. CARDIOVASCULAR: Regular rate and rhythm without murmurs, gallops, or rubs. LifeVest in place. RESPIRATORY: Clear to auscultation. Breath sounds equal bilaterally. No wheezes , rales, or rhonchi. GASTROINTESTINAL: Abdomen soft, non-tender, nondistended. No hepato-splenomegaly , or palpable masses. No guarding. MUSCULOSKELETAL: 2+ pitting edema to the midshin. No joint tenderness, effusion , or edema noted. No calf tenderness. Negative Homans sign bilaterally. NEUROLOGICAL: Awake and alert. Cranial nerves II through XII intact. Motor and sensory grossly within normal limits. Normal speech. Caprini VTE Risk Assessment Caprini VTE Risk Assessment: Mod/High Risk (score >= 2) Caprini Risk Assessment Model Point Value = 1 Point Value = 2 Point Value = 3 Point Value = 5 Age 41-60 Minor surgery BMI > 25 kg/m2 Swollen legs Varicose veins or History of unexplained or recurrent spontaneous Oral contraceptives or hormone replacement Sepsis (< 1 month) Serious lung disease, including pneumonia (< 1 month) Abnormal pulmonary function Acute myocardial infarction Congestive heart failure (< 1 month) History of inflammatory bowel disease Medical patient at bed rest Age 61-74 Arthroscopic surgery Major open surgery (> 45 min) Laparoscopic surgery (> 45 min) Malignancy Confined to bed (> 72 hours) Immobilizing plaster cast Central venous access Age >= 75 History of VTE Family history of VTE Factor V Leiden Prothrombin [id number] Lupus anticoagulant Anticardiolipin antibodies Elevated serum homocysteine Heparin-induced thrombocytopenia Other congenital or acquired thrombophilia Stroke (< 1 month) Elective arthroplasty Hip, pelvis, or leg fracture Acute spinal cord injury (< 1 month) Prophylaxis Regimen Total Risk Factor Score Risk Level Prophylaxis Regimen 0-1 Low Early ambulation 2 Moderate Order ONE of the following: *Sequential Compression Device (SCD) *Heparin 5000 units SQ BID 3-4 Higher Order ONE of the following medications: *Heparin 5000 units SQ TID *Enoxaparin/Lovenox 40 mg SQ daily (WT < 150 kg, CrCl > 30 mL/min) *Enoxaparin/Lovenox 30 mg SQ daily (WT < 150 kg, CrCl > 10-29 mL/min) *Enoxaparin/Lovenox 30 mg SQ BID (WT < 150 kg, CrCl > 30 mL/min) AND/OR *Sequential Compression Device (SCD) 5 or more Highest Order ONE of the following medications: *Heparin 5000 units SQ TID (Preferred with Epidurals) *Enoxaparin/Lovenox 40 mg SQ daily (WT < 150 kg, CrCl > 30 mL/min) *Enoxaparin/Lovenox 30 mg SQ daily (WT < 150 kg, CrCl > 10-29 mL/min) *Enoxaparin/Lovenox 30 mg SQ BID (WT < 150 kg, CrCl > 30 mL/min) AND *Sequential Compression Device (SCD) Assessment and Plan Assessment and Plan 51-year-old female with known congestive heart failure and life Vest presents with chest pain/shortness of breath. 1. Chest pain EKG significant for T-wave inversions, LVH Troponin negative Cardiology consulted, appreciate assistance Trend EKGs/troponins 2. Hypertensive urgency Blood pressure 178/110 Continue home BP medications Hydralazine/clonidine when necessary Monitor for hypertensive crisis 3. Diabetes mellitus Holding home metformin SSI 4. RY Continue CPAP FEN Heart healthy diet Electrolytes within normal limits; continue monitor SCDs Annie Torres MD Apr 22, 2017 19:25
[2017-04-22] MEDS ORDERED: PILL SPLITTER OTHER PRN (19:45)
[2017-04-22] MEDS ORDERED: hydrALAZINE HCL 20 MG/ML VIAL IV PUSH PRN (19:45)
[2017-04-22] MEDS ORDERED: cloNIDine HCL 0.1 MG TAB PO PRN (19:45)
[2017-04-22 20:10] VITALS: PULSE 81
[2017-04-22 20:45] VITALS: BP 164/111; PULSE 83; RESP 18; TEMP 98.1; O2SAT 97
[2017-04-22] MEDS ORDERED: ATORVASTATIN 20 MG TAB PO SCH (21:00)
[2017-04-22] MEDS: SODIUM CHLORIDE 0.9% FLUSH 10 ML FLUSH IV FLUSH SCH (22:07)
[2017-04-22] MEDS: POTASSIUM CHLORIDE 20 MEQ CONTROLLED RELEASE TAB PO SCH (22:12)
[2017-04-22] MEDS: METOPROLOL TARTRATE 25 MG TAB PO SCH (22:13)
[2017-04-22 23:15] VITALS: PULSE 76
[2017-04-22 23:27] VITALS: BP 144/91; PULSE 72; RESP 18; TEMP 98; O2SAT 99
[2017-04-23 04:03] VITALS: PULSE 64
[2017-04-23 05:13] VITALS: BP 126/80; PULSE 70; RESP 16; TEMP 97.9; O2SAT 99
[2017-04-23 05:18] LABS: AUTOMATED NEUTROPHIL # 5.2 TH/MM3 (1.8-7.7); BASOPHIL # 0.1 TH/MM3 (0-0.2); BASOPHIL % 0.7 % (0.0-2.0); EOSINOPHIL # 0.1 TH/MM3 (0-0.4); EOSINOPHIL % 1.4 % (0.0-4.0); HEMATOCRIT 37.3 % (35.0-46.0); HEMOGLOBIN 12.3 GM/DL (11.6-15.3); LYMPH % 29.3 % (9.0-44.0); LYMPHOCYTE # 2.4 TH/MM3 (1.0-4.8); MEAN CELL VOLUME 79.1 FL (80.0-100.0); MEAN CORPUSCULAR HGB CONC 32.9 % (32.0-36.0); MEAN PLATELET VOLUME 7.9 FL (7.0-11.0); MONO % 5.3 % (0.0-8.0); MONOCYTE # 0.4 TH/MM3 (0-0.9); NEUT % 63.3 % (16.0-70.0); PLATELET COUNT 288 TH/MM3 (150-450); RED BLOOD COUNT 4.71 MIL/MM3 (4.00-5.30); WHITE BLOOD COUNT 8.2 TH/MM3 (4.0-11.0)
[2017-04-23 05:39] LABS: BICARBONATE 28.5 MEQ/L (21.0-32.0); BLOOD UREA NITROGEN 12 MG/DL (7-18); CHLORIDE 101 MEQ/L (98-107); CREATININE 0.59 MG/DL (0.50-1.00); GLOMERULAR FILTRATION RATE 130 ML/MIN (>89); GLUCOSE,RANDOM 197 MG/DL (74-106); SODIUM (NA) 139 MEQ/L (136-145)
[2017-04-23 05:43] LABS: TROPONIN I LESS THAN 0.02 NG/ML (0.02-0.05)
[2017-04-23 07:47] VITALS: BP 138/83; PULSE 67; RESP 18; TEMP 98.1; O2SAT 99
[2017-04-23 08:00] VITALS: PULSE 77
[2017-04-23] MEDS ORDERED: ACETAMINOPHEN 325 MG TAB PO PRN (08:45)
[2017-04-23] MEDS ORDERED: VALSARTAN 160 MG TAB PO SCH (09:00)
[2017-04-23] MEDS ORDERED: LISINOPRIL 20 MG TAB PO SCH (09:00)
[2017-04-23] MEDS ORDERED: ASPIRIN 81 MG CHEW TAB CHEW SCH (09:00)
[2017-04-23] MEDS: SODIUM CHLORIDE 0.9% FLUSH 10 ML FLUSH IV FLUSH SCH (09:14)
[2017-04-23] MEDS: METOPROLOL TARTRATE 25 MG TAB PO SCH (09:14)
[2017-04-23] MEDS: POTASSIUM CHLORIDE 20 MEQ CONTROLLED RELEASE TAB PO SCH (09:14)
[2017-04-23] MEDS: INSULIN ASPART SUPPLEMENTAL SCALE SQ SCH ×2 (09:15→12:00)
--- NOTE | 2017-04-23 09:19 | EKG ---
Date Performed: 04/22/2017 Time Performed: 17:20:34 PTAGE: 51 years EKG: Sinus rhythm MODERATE VOLTAGE CRITERIA FOR LVH, CONSIDER NORMAL VARIANT NONSPECIFIC T-WAVE ABNORMALITY BORDERLINE ECG Compared to prior tracing no significant change PREVIOUS TRACING 04/22/2017 13.49.02 DOCTOR: Venkat Mcfarlane Interpretating Date/Time 04/23/2017 09:17:54
--- NOTE | 2017-04-23 09:19 | EKG ---
Date Performed: 04/22/2017 Time Performed: 23:16:56 PTAGE: 51 years EKG: Sinus rhythm POSSIBLE LEFT VENTRICULAR HYPERTROPHY NONSPECIFIC T-WAVE ABNORMALITY ABNORMAL ECG Compared to prior tracing no significant change PREVIOUS TRACING : 04/22/2017 17.20 DOCTOR: Venkat Mcfarlane Interpretating Date/Time 04/23/2017 09:18:02
[2017-04-23] MEDS ORDERED: TORS10TA2 PO (10:24)
[2017-04-23] MEDS ORDERED: LISI-515 PO (10:24)
[2017-04-23] MEDS ORDERED: ATOR40TA16 PO (10:24)
[2017-04-23] MEDS ORDERED: NITR0.4S SL (10:24)
[2017-04-23] MEDS ORDERED: K-TA10TA PO (10:24)
[2017-04-23] MEDS ORDERED: HYDR-3799 PO (10:25)
--- NOTE | 2017-04-23 10:27 | HHI.PR ---
Subjective Remarks Follow up for accelerated HTN, chest pain in a patient with a history of CHF. Currently, patient denies any chest pain, SOB, fever, chills. Objective Vitals Vital Signs Date Time Temp Pulse Resp B/P (MAP) Pulse Ox O2 Delivery O2 Flow Rate FiO2 04/23/17 07:47 98.1 67 18 138/83 (101) 99 04/23/17 05:13 97.9 70 16 126/80 (95) 99 04/23/17 04:03 64 04/22/17 23:27 98.0 72 18 144/91 (108) 99 04/22/17 23:15 76 04/22/17 20:45 98.1 83 18 164/111 (128) 97 04/22/17 20:10 81 04/22/17 17:11 95.8 79 20 95 04/22/17 17:05 178/110 (132) Result Diagram: 04/23/17 0504 04/23/17 0504 Objective Remarks GENERAL: Alert, Oriented x 3, NAD. Morbid obesity, Lifevest in place. SKIN: Warm and dry. HEAD: Normocephalic. EYES: No scleral icterus. No injection or drainage. NECK: Supple, trachea midline. No JVD or lymphadenopathy. CARDIOVASCULAR: Regular rate and rhythm without murmurs, gallops, or rubs. RESPIRATORY: Breath sounds equal bilaterally. No accessory muscle use. GASTROINTESTINAL: Abdomen soft, non-tender, nondistended. MUSCULOSKELETAL: No cyanosis, or edema. BACK: Nontender without obvious deformity. No CVA tenderness. Procedures None. A/P Assessment and Plan Ms. Tarango is a 51-year-old female with a past medical history significant for congestive heart failure, recently discharged in February with a LifeVest, presented to the [facility] emergency department with new onset chest pain and hypertensive urgency. - Chest pain - Systolic congestive heart failure - Likely due to accelerated HTN. Troponins X 3 negative. EKGs unremarkable for ischemic events. - Continue Aspirin, Metoprolol. NTG PRN. - D/C Lasix and start Torsemide 10mg BID. KCL 10meQ BID. - Start Lipitor 40mg HS. - Accelerated hypertension - D/C Valsartan due to cost. Will start patient on Lisinopril 40mg Qday. - Hydralazine 25mg QID PRN for BP > 160/90. - Diabetes mellitus - Continue Metformin 1000mg BID. Full code. Discharge patient to home Condition on discharge: Improved Heart healthy, diabetic Diet as tolerated Ad Charlotte activity Rx changes: New Medications: Hydralazine HCl 25 Mg Tablet Potassium Chloride ER (K-Tab) 10 Meq Tab Torsemide 10 Mg Tab Atorvastatin 40 Mg Tab Lisinopril 20 Mg Tab Nitroglycerin SL (Nitrostat SL) 0.4 Mg Subl If multiple doses required, seek medical attention. Continued Medications: Aspirin (Aspirin Low Strength) 81 Mg Chew Metformin 1,000 Mg Tab With meals Metoprolol Tartrate 25 Mg Tab Discontinued Medications: Atorvastatin 20 Mg Tab Furosemide 40 Mg Tab Potassium Chloride Microencaps 20 Meq Tab Valsartan 320 Mg Tab Follow-up with primary care physician 1-2 weeks and Cardiology 1-2 weeks. Tita Berrios DO Apr 23, 2017 10:27
[2017-04-23 11:52] VITALS: BP 155/88; PULSE 66; RESP 18; TEMP 98.3; O2SAT 99
[2017-04-23] MEDS ORDERED: ATORVASTATIN 40 MG TAB PO SCH (21:00)
== END 2017-04-23 13:13 | disposition home or self-care (01) ==
LOC: NEDDLT 16:37 → NEPGCP 16:47
PROVIDERS: ADMIT Hospitalist; ATTEND Hospitalist
DX: R07.9 Chest pain, unspecified (principal); I50.20 Unspecified systolic (congestive) heart failure; I11.0 Hypertensive heart disease with heart failure; I16.0 Hypertensive urgency; I25.10 Atherosclerotic heart disease of native coronary artery without angina pectoris; E11.9 Type 2 diabetes mellitus without complications; G47.33 Obstructive sleep apnea (adult) (pediatric); J45.909 Unspecified asthma, uncomplicated; Z79.84 Long term (current) use of oral hypoglycemic drugs
CPT/HCPCS: 71010; 80048; 80053; 82550; 82948; 83735; 83880; 84484; 85025; 85610; 85730; 93005; 96372; 96374; 99285; G0378; J1815; J1940

== ENCOUNTER 2017-06-28 09:38 | Inpatient (IN) | payer OTHER ==
[~2017-06-28] VITALS: Ht 165.1 cm; Wt 151.0 kg
[2017-06-28] VITALS (11 sets, daily range): BP systolic 138–224; BP diastolic 69–133; PULSE 75–97; RESP 14–18; TEMP 98.2–99; O2SAT 95–97
[~2017-06-28 09:38] MED LIST changes: -ATOR20TA15 PO; +ATOR40TA16 PO; -DEFIB EXTERNAL; -FURO40TA PO; +HYDR-3799 PO; +K-TA10TA PO; -LEVA750T9 PO; +LISI-515 PO; +NITR0.4S SL; -POTA20TA5 PO; -VALS1TAB70 PO
[2017-06-28] MEDS ORDERED: MONT10TA2 PO (10:09)
[2017-06-28] MEDS ORDERED: ALBU0.63 NEB (10:09)
[2017-06-28] MEDS ORDERED: ALBUAER3 PO (10:09)
[2017-06-28] MEDS ORDERED: CARV25TA PO (10:09)
[2017-06-28] MEDS ORDERED: FLUT50SP EACH NARE (10:09)
--- NOTE | 2017-06-28 10:39 | PD ---
HPI Chief Complaint: Hypertension Time Seen by Provider: 10:20 Travel History International Travel<30 days: No Contact w/Intl Traveler<30days: No Traveled to known affect area: No History of Present Illness HPI A 51 year old female presents to the emergency department for high blood pressure. She woke up and had a headache and felt lightheaded so she took her blood pressure and it was 240/14. She did take her blood pressure medication this morning and has a history of very uncontrolled blood pressure. She has had nasal congestion and a productive cough for the past 3 days. She also reports feeling like she has a fever and chills. She has had no sick contacts. The patient also complains of pain as she coughs in her lower chest area bilaterally. The pain radiates down her right arm. She describes is at a pressure feeling that is a 7/10 and is worse when she coughs. The patient did not take her nitro. She denies nausea, vomiting, diarrhea, hemoptysis, or abdominal pain. History Past Medical History Narrative Medical History of CHF, hypertension, hyperlipidemia, asthma, type 2 diabetes Tetanus Vaccination: Unknown Past Surgical History Narrative Surgical History of hysterectomy, lupus coronary placement, orthopedic right shoulder and right knee surgery Social History Alcohol Use: Yes (OCCASIONAL ) Tobacco Use: No Allergies-Medications (Allergen,Severity, Reaction): Coded Allergies: No Known Allergies (Verified Allergy, Unknown, 06/28/17) Reported Meds & Prescriptions Reported Meds & Active Scripts Active K-Tab (Potassium Chloride) 10 Meq Tab 10 Meq PO BID Nitrostat SL (Nitroglycerin) 0.4 Mg Subl 0.4 Mg SL Q5M PRN If multiple doses required, seek medical attention. Atorvastatin (Atorvastatin Calcium) 40 Mg Tab 40 Mg PO HS Aspirin Low Strength (Aspirin) 81 Mg Chew 81 Mg CHEW DAILY Reported Albuterol Neb (Albuterol Sulfate) 0.63 Mg/3 Ml Neb 0.63 Mg NEB Q4HR NEB PRN Fluticasone Nasal [place] 50 Mcg/Act Naspr 50 Mcg EACH NARE BID 50 mcg/spray Singulair (Montelukast Sodium) 10 Mg Tab 10 Mg PO DAILY Proair Hfa (Albuterol Sulfate) 90 Mcg Hfa.aer.ad 2 Puff PO Q4HR NEB Carvedilol 25 Mg Tab 25 Mg PO BID Metformin (Metformin HCl) 1,000 Mg Tab 1,000 Mg PO BIDPC With meals Review of Systems General / Constitutional: Positive: Fever, Chills HENT: Positive: Headaches, Congestion Cardiovascular: Positive: Chest Pain or Discomfort, No: Diaphoresis, Syncope, Edema Respiratory: Positive: Cough, No: Shortness of Breath, Wheezing Gastrointestinal: No: Nausea, Vomiting, Diarrhea, Abdominal Pain Musculoskeletal: No: Myalgias Physical Exam Narrative GENERAL: A well-developed and well-nourished female in no acute respiratory distress. SKIN: Warm and dry. HEAD: Atraumatic. Normocephalic. EYES: Pupils equal and round. No scleral icterus. No injection or drainage. ENT: No nasal bleeding or discharge. Mucous membranes pink and moist. NECK: Trachea midline. No JVD. No cervical lymphadenopathy. CARDIOVASCULAR: Regular rate and rhythm. No murmur appreciated. RESPIRATORY: No accessory muscle use. Clear to auscultation. Breath sounds equal bilaterally. No crackles, Rales, or rhonchi. GASTROINTESTINAL: Abdomen soft, non-tender, nondistended. Hepatic and splenic margins not palpable. MUSCULOSKELETAL: Extremities without clubbing, cyanosis, or edema. No obvious deformities. NEUROLOGICAL: Awake and alert. No obvious cranial nerve deficits. Motor grossly within normal limits. Five out of 5 muscle strength in the arms and legs. Normal speech. PSYCHIATRIC: Appropriate mood and affect; insight and judgment normal. Data Data Last Documented VS Orders Orders Complete Blood Count With Diff (06/28/17 10:51) Comprehensive Metabolic Panel (06/28/17 10:51) B-Type Natriuretic Peptide (06/28/17 10:51) D-Dimer (06/28/17 10:51) Troponin I (06/28/17 10:51) Urinalysis - C+S If Indicated (06/28/17 10:51) Iv Access Insert/Monitor (06/28/17 10:51) Electrocardiogram (06/28/17 10:51) Ecg Monitoring (06/28/17 10:51) Oximetry (06/28/17 10:51) Oxygen Administration (06/28/17 10:51) Chest, Single Ap (06/28/17 10:51) Sodium Chloride 0.9% Flush (Ns Flush) (06/28/17 11:00) Hydralazine Inj (Apresoline Inj) (06/28/17 11:45) Urine Culture (06/28/17 11:28) Admit To Inpatient (06/28/17 ) Vital Signs (Adult) Q4H (06/28/17 14:47) Activity Oob With Assistance (06/28/17 14:47) Diet Heart Healthy (06/28/17 Dinner) Sodium Chloride 0.9% Flush (Ns Flush) (06/28/17 15:00) Sodium Chloride 0.9% Flush (Ns Flush) (06/28/17 21:00) Acetaminophen (Tylenol) (06/28/17 15:00) Ondansetron Inj (Zofran Inj) (06/28/17 15:00) Temazepam (Restoril) (06/28/17 15:00) Scd Bilateral/Knee High CARMEN.BID (06/28/17 14:47) Naloxone Inj (Narcan Inj) (06/28/17 15:00) Magnesium Hydroxide Liq (Milk Of Magnesi (06/28/17 15:00) Sennosides (Senokot) (06/28/17 15:00) Bisacodyl Supp (Dulcolax Supp) (06/28/17 15:00) Lactulose Liq (Lactulose Liq) (06/28/17 15:00) Inpatient Certification (06/28/17 ) Nifedipine Sr (Procardia Xl) (06/28/17 21:00) Labetalol Inj (Trandate Inj) (06/28/17 15:15) Admit Order (Ed Use Only) (06/28/17 15:09) Labs Laboratory Tests Test 06/28/17 10:40 06/28/17 11:28 White Blood Count 7.9 TH/MM3 Red Blood Count 4.69 MIL/MM3 Hemoglobin 12.2 GM/DL Hematocrit 37.0 % Mean Corpuscular Volume 79.0 FL Mean Corpuscular Hemoglobin 26.0 PG Mean Corpuscular Hemoglobin Concent 32.9 % Red Cell Distribution Width 16.4 % Platelet Count 319 TH/MM3 Mean Platelet Volume 7.9 FL Neutrophils (%) (Auto) 56.3 % Lymphocytes (%) (Auto) 36.3 % Monocytes (%) (Auto) 4.7 % Eosinophils (%) (Auto) 2.3 % Basophils (%) (Auto) 0.4 % Neutrophils # (Auto) 4.5 TH/MM3 Lymphocytes # (Auto) 2.9 TH/MM3 Monocytes # (Auto) 0.4 TH/MM3 Eosinophils # (Auto) 0.2 TH/MM3 Basophils # (Auto) 0.0 TH/MM3 CBC Comment DIFF FINAL Differential Comment D-Dimer Quantitative (PE/DVT) 0.54 MG/L FEU Blood Urea Nitrogen 8 MG/DL Creatinine 0.62 MG/DL Random Glucose 143 MG/DL Total Protein 8.2 GM/DL Albumin 3.6 GM/DL Calcium Level 8.8 MG/DL Alkaline Phosphatase 104 U/L Aspartate Amino Transf (AST/SGOT) 19 U/L Alanine Aminotransferase (ALT/SGPT) 25 U/L Total Bilirubin 0.8 MG/DL Sodium Level 139 MEQ/L Potassium Level 4.3 MEQ/L Chloride Level 103 MEQ/L Carbon Dioxide Level 29.9 MEQ/L Anion Gap 6 MEQ/L Estimat Glomerular Filtration Rate 123 ML/MIN Troponin I LESS THAN 0.02 NG/ML B-Type Natriuretic Peptide 84 PG/ML Urine Color LIGHT-YELLOW Urine Turbidity HAZY Urine pH 5.0 Urine Specific [place] 1.010 Urine Protein NEG mg/dL Urine Glucose (UA) NEG mg/dL Urine Ketones NEG mg/dL Urine Occult Blood NEG Urine Nitrite NEG Urine Bilirubin NEG Urine Urobilinogen LESS THAN 2.0 MG/DL Urine Leukocyte Esterase SMALL Urine RBC LESS THAN 1 /hpf Urine WBC 1 /hpf Urine Squamous Epithelial Cells 3 /hpf Urine Bacteria MOD /hpf Urine Mucus FEW /lpf Microscopic Urinalysis Comment CULTURE INDICATED MDM Medical Decision Making Medical Screen Exam Complete: Yes Emergency Medical Condition: Yes Differential Diagnosis Acute bronchitis, pneumonia, CHF exacerbation, ACS, URI, hypertensive urgency, hypertensive emergency Narrative Course 51-year-old female with a history of hypertension, presents here with complaints of elevated blood pressure, chest pain. Patient had a blood pressure in the 240 systolic when she arrived. The patient is had this previously. Given the fact that she had such high blood pressure and it was uncontrolled, she'll be admitted to the hospital under observation for blood pressure control. Case was discussed with Dr. Berrios who is gracious enough to admit the patient to his service. Diagnosis Primary Impression: Uncontrolled hypertension Additional Impressions: Diabetes mellitus CAD (coronary artery disease) Admitting Information Admitting Physician Requests: Observation Scripts Nifedipine ER 24 HR (Nifedipine ER 24 HR) 60 Mg Tab 60 MG PO Q12HR for Blood Pressure Management, #60 TAB Prov: Ginny Kelly PA-C 06/29/17 Torsemide (Torsemide) 5 Mg Tab 10 MG PO BID@,18 for CHF for 30 Days, TAB Prov: Ginny Kelly PA-C 06/29/17 Lisinopril (Lisinopril) 20 Mg Tab 20 MG PO DAILY for Blood Pressure Management, #30 TAB Prov: Ginny Kelly PA-C 06/29/17 Gee Hamilton MD Jun 28, 2017 10:39
[2017-06-28] MEDS ORDERED: hydrALAZINE HCL 20 MG/ML VIAL IV PUSH ONE ×2 (11:00→11:45)
[2017-06-28] MEDS ORDERED: INSULIN HUMAN REGULAR 1,000 UNITS/10 ML VIAL IV PUSH ONE (11:00)
[2017-06-28] MEDS ORDERED: SODIUM CHLORIDE 0.9% FLUSH 10 ML FLUSH IVF PRN (11:00)
[2017-06-28] MEDS ORDERED: SODIUM CHLOR 0.9% 1000 ML INJ 1,000 ML IV ONE (11:00)
[2017-06-28 11:12] LABS: AUTOMATED NEUTROPHIL # 4.5 TH/MM3 (1.8-7.7); BASOPHIL % 0.4 % (0.0-2.0); EOSINOPHIL # 0.2 TH/MM3 (0-0.4); EOSINOPHIL % 2.3 % (0.0-4.0); HEMOGLOBIN 12.2 GM/DL (11.6-15.3); LYMPH % 36.3 % (9.0-44.0); LYMPHOCYTE # 2.9 TH/MM3 (1.0-4.8); MEAN CORPUSCULAR HGB CONC 32.9 % (32.0-36.0); MEAN PLATELET VOLUME 7.9 FL (7.0-11.0); MONO % 4.7 % (0.0-8.0); MONOCYTE # 0.4 TH/MM3 (0-0.9); NEUT % 56.3 % (16.0-70.0); PLATELET COUNT 319 TH/MM3 (150-450); RED BLOOD COUNT 4.69 MIL/MM3 (4.00-5.30); RED CELL DISTRIBUTION WIDTH 16.4 % (11.6-17.2); WHITE BLOOD COUNT 7.9 TH/MM3 (4.0-11.0)
[2017-06-28 11:34] LABS: ALBUMIN 3.6 GM/DL (3.4-5.0); ALT (GPT) 25 U/L (10-53); AST (GOT) 19 U/L (15-37); BICARBONATE 29.9 MEQ/L (21.0-32.0); BLOOD UREA NITROGEN 8 MG/DL (7-18); CALCIUM 8.8 MG/DL (8.5-10.1); CHLORIDE 103 MEQ/L (98-107); CREATININE 0.62 MG/DL (0.50-1.00); GLOMERULAR FILTRATION RATE 123 ML/MIN (>89); GLUCOSE,RANDOM 143 MG/DL (74-106); SODIUM (NA) 139 MEQ/L (136-145)
--- NOTE | 2017-06-28 11:35 | RADRPT ---
EXAM DATE/TIME: 06/28/2017 11:14 [place] COMPARISON: CHEST SINGLE AP, June 10, 2017, 10:22. INDICATIONS : Short of breath. MEDICAL HISTORY : Congestive heart failure. Myocardial infarction. SURGICAL HISTORY : loop recorder ENCOUNTER: Initial ACUITY: 1 day PAIN SCORE: 0/10 LOCATION: Bilateral chest FINDINGS: Mild compensated cardiomegaly without congestive failure, consolidation, pleural effusion or pneumoth orax. The portion of the bony skeleton visualized is unremarkable. Cardiac event recorder noted. CONCLUSION: Mild compensated cardiomegaly without overt failure. Nicola Lim MD FACR on June 28, 2017 at 11:32 Board Certified Radiologist. This report was verified electronically.
[2017-06-28 11:37] LABS: ALKALINE PHOSPHATASE 104 U/L (45-117); TOTAL BILIRUBIN ADULT 0.8 MG/DL (0.2-1.0); TOTAL PROTEIN 8.2 GM/DL (6.4-8.2); TROPONIN I LESS THAN 0.02 NG/ML (0.02-0.05)
[2017-06-28 11:49] LABS: BACTERIA, URINE MOD /hpf; BILIRUBIN, URINE NEG (NEG); BLOOD, URINE NEG (NEG); GLUCOSE,URINE NEG (NEG); KETONE, URINE NEG (NEG); MUCUS URINE FEW /lpf (OCC); NITRITE,URINE NEG (NEG); SQUAMOUS EPITHELIAL CELL URINE 3 /hpf (0-5); URINE COLOR LIGHT-YELLOW (YELLW/STRAW); URINE LEUKOCYTE ESTERASE SMALL (NEG)
[2017-06-28] MEDS ORDERED: MAGNESIUM HYDROXIDE SUSP 30 ML CUP PO PRN (15:00)
[2017-06-28] MEDS ORDERED: NALOXONE HCL 0.4 MG/ML AMP IV PUSH PRN (15:00)
[2017-06-28] MEDS ORDERED: LACTULOSE SYRUP 20 GM/30 ML CUP PO PRN (15:00)
[2017-06-28] MEDS ORDERED: BISACODYL 10 MG SUPP RECTAL PRN (15:00)
[2017-06-28] MEDS ORDERED: TEMAZEPAM 15 MG CAP PO PRN (15:00)
[2017-06-28] MEDS ORDERED: SENNOSIDES 8.6 MG TAB PO PRN (15:00)
[2017-06-28] MEDS ORDERED: ONDANSETRON HCL 4 MG/2 ML VIAL IVP PRN (15:00)
[2017-06-28] MEDS ORDERED: SODIUM CHLORIDE 0.9% FLUSH 10 ML FLUSH IV FLUSH PRN (15:00)
--- NOTE | 2017-06-28 15:12 | HHI.HP ---
HPI Service [facility] Primary Care Physician No Primary Care Physician Admission Diagnosis Diagnoses: Chief Complaint: High blood pressure, sinusitis. Travel History International Travel<30 Days: No Contact w/Intl Traveler <30 Da: No Traveled to Known Affected Are: No History of Present Illness Ms. Tarango is a 51 year old female with a history of cardiomyopathy, sleep apnea, hypertension who presented to the ED due to high blood pressure. She has been feeling cold symptoms and sinus congestion for about 3 days. She called her PCP and upon hearing her BP 240/141, PCP advised patient to come to the the ED. Patient reports some headache and chest discomfort as well. Denies any nausea, vomiting, diaphoresis. Denies any cough, abdominal pain. No changes in bowel or bladder habits. Review of Systems Except as stated in HPI: all other systems reviewed are Neg Past Family Social History Past Medical History Sleep Apnea Hypertension DM Asthma CHF Hyperlipidemia Past Surgical History Hysterectomy Bladder simulator Tonsillectomy Umbilical hernia repair Arm cyst removal Right shoulder, right knee arthroscopy. Reported Medications Active Hydralazine HCl 25 Mg Tablet 25 Mg PO QID PRN K-Tab (Potassium Chloride) 10 Meq Tab 10 Meq PO BID Lisinopril 20 Mg Tab 40 Mg PO DAILY Nitrostat SL (Nitroglycerin) 0.4 Mg Subl 0.4 Mg SL Q5M PRN If multiple doses required, seek medical attention. Atorvastatin (Atorvastatin Calcium) 40 Mg Tab 40 Mg PO HS Aspirin Low Strength (Aspirin) 81 Mg Chew 81 Mg CHEW DAILY Reported Albuterol Neb (Albuterol Sulfate) 0.63 Mg/3 Ml Neb 0.63 Mg NEB Q4HR NEB PRN Fluticasone Nasal [place] 50 Mcg/Act Naspr 50 Mcg EACH NARE BID 50 mcg/spray Singulair (Montelukast Sodium) 10 Mg Tab 10 Mg PO DAILY Proair Hfa (Albuterol Sulfate) 90 Mcg Hfa.aer.ad 2 Puff PO Q4HR NEB Carvedilol 25 Mg Tab 25 Mg PO BID Metformin (Metformin HCl) 1,000 Mg Tab 1,000 Mg PO BIDPC With meals Allergies: Coded Allergies: No Known Allergies (Verified Allergy, Unknown, 06/28/17) Family History Mom - CAD, HTN, DM Dad - HTN, DM, cancer Social History Drinks occasionally, lifelong non-smoker. Physical Exam Vital Signs Vital Signs Date Time Temp Pulse Resp B/P (MAP) Pulse Ox O2 Delivery O2 Flow Rate FiO2 06/28/17 14:30 92 18 184/91 (122) 95 Room Air 06/28/17 11:22 77 18 161/93 (115) 97 Room Air 06/28/17 11:22 75 18 97 Room Air 06/28/17 11:22 97 Room Air 06/28/17 09:56 122 20 06/28/17 09:42 98.2 97 14 224/133 (163) 97 Physical Exam GENERAL: This is a well-nourished, well-developed patient, in no apparent distress. Morbid obesity. SKIN: No rashes, ecchymoses or lesions. Warm and dry. HEAD: Atraumatic. Normocephalic. No temporal or scalp tenderness. EYES: Pupils equal round and reactive. No injection or drainage. ENT: Nose without bleeding, purulent drainage or septal hematoma. Airway patent. NECK: Trachea midline. No lymphadenopathy. Supple, nontender, no meningeal signs. CARDIOVASCULAR: Regular rate and rhythm without murmurs, gallops, or rubs. No JVD. RESPIRATORY: Clear to auscultation. Breath sounds equal bilaterally. No wheezes , rales, or rhonchi. GASTROINTESTINAL: Abdomen soft, non-tender, nondistended. No guarding. MUSCULOSKELETAL: Extremities without clubbing, cyanosis, or edema. NEUROLOGICAL: Awake and alert. Cranial nerves II through XII intact. No focal neurological deficits. Normal speech. Laboratory Laboratory Tests Test 06/28/17 10:40 06/28/17 11:28 White Blood Count 7.9 Red Blood Count 4.69 Hemoglobin 12.2 Hematocrit 37.0 Mean Corpuscular Volume 79.0 Mean Corpuscular Hemoglobin 26.0 Mean Corpuscular Hemoglobin Concent 32.9 Red Cell Distribution Width 16.4 Platelet Count 319 Mean Platelet Volume 7.9 Neutrophils (%) (Auto) 56.3 Lymphocytes (%) (Auto) 36.3 Monocytes (%) (Auto) 4.7 Eosinophils (%) (Auto) 2.3 Basophils (%) (Auto) 0.4 Neutrophils # (Auto) 4.5 Lymphocytes # (Auto) 2.9 Monocytes # (Auto) 0.4 Eosinophils # (Auto) 0.2 Basophils # (Auto) 0.0 CBC Comment DIFF FINAL Differential Comment D-Dimer Quantitative (PE/DVT) 0.54 Blood Urea Nitrogen 8 Creatinine 0.62 Random Glucose 143 Total Protein 8.2 Albumin 3.6 Calcium Level 8.8 Alkaline Phosphatase 104 Aspartate Amino Transf (AST/SGOT) 19 Alanine Aminotransferase (ALT/SGPT) 25 Total Bilirubin 0.8 Sodium Level 139 Potassium Level 4.3 Chloride Level 103 Carbon Dioxide Level 29.9 Anion Gap 6 Estimat Glomerular Filtration Rate 123 Troponin I LESS THAN 0.02 B-Type Natriuretic Peptide 84 Urine Color LIGHT-YELLOW Urine Turbidity HAZY Urine pH 5.0 Urine Specific [place] 1.010 Urine Protein NEG Urine Glucose (UA) NEG Urine Ketones NEG Urine Occult Blood NEG Urine Nitrite NEG Urine Bilirubin NEG Urine Urobilinogen LESS THAN 2.0 Urine Leukocyte Esterase SMALL Urine RBC LESS THAN 1 Urine WBC 1 Urine Squamous Epithelial Cells 3 Urine Bacteria MOD Urine Mucus FEW Microscopic Urinalysis Comment CULTURE INDICATED Date/Time Source Procedure Growth Status 06/28/17 11:28 Urine Clean Catch Urine Culture Pending Received Result Diagram: 06/28/17 1040 06/28/17 1040 Imaging Last Impressions Chest X-Ray 06/28/17 1051 Signed Impressions: Service Date/Time: Wednesday, June 28, 2017 11:14 - CONCLUSION: Mild compensated cardiomegaly without overt failure. Nicola Lim MD FACR Caprini VTE Risk Assessment Caprini VTE Risk Assessment: Mod/High Risk (score >= 2) Caprini Risk Assessment Model Point Value = 1 Point Value = 2 Point Value = 3 Point Value = 5 Age 41-60 Minor surgery BMI > 25 kg/m2 Swollen legs Varicose veins or History of unexplained or recurrent spontaneous Oral contraceptives or hormone replacement Sepsis (< 1 month) Serious lung disease, including pneumonia (< 1 month) Abnormal pulmonary function Acute myocardial infarction Congestive heart failure (< 1 month) History of inflammatory bowel disease Medical patient at bed rest Age 61-74 Arthroscopic surgery Major open surgery (> 45 min) Laparoscopic surgery (> 45 min) Malignancy Confined to bed (> 72 hours) Immobilizing plaster cast Central venous access Age >= 75 History of VTE Family history of VTE Factor V Leiden Prothrombin [id number] Lupus anticoagulant Anticardiolipin antibodies Elevated serum homocysteine Heparin-induced thrombocytopenia Other congenital or acquired thrombophilia Stroke (< 1 month) Elective arthroplasty Hip, pelvis, or leg fracture Acute spinal cord injury (< 1 month) Prophylaxis Regimen Total Risk Factor Score Risk Level Prophylaxis Regimen 0-1 Low Early ambulation 2 Moderate Order ONE of the following: *Sequential Compression Device (SCD) *Heparin 5000 units SQ BID 3-4 Higher Order ONE of the following medications: *Heparin 5000 units SQ TID *Enoxaparin/Lovenox 40 mg SQ daily (WT < 150 kg, CrCl > 30 mL/min) *Enoxaparin/Lovenox 30 mg SQ daily (WT < 150 kg, CrCl > 10-29 mL/min) *Enoxaparin/Lovenox 30 mg SQ BID (WT < 150 kg, CrCl > 30 mL/min) AND/OR *Sequential Compression Device (SCD) 5 or more Highest Order ONE of the following medications: *Heparin 5000 units SQ TID (Preferred with Epidurals) *Enoxaparin/Lovenox 40 mg SQ daily (WT < 150 kg, CrCl > 30 mL/min) *Enoxaparin/Lovenox 30 mg SQ daily (WT < 150 kg, CrCl > 10-29 mL/min) *Enoxaparin/Lovenox 30 mg SQ BID (WT < 150 kg, CrCl > 30 mL/min) AND *Sequential Compression Device (SCD) Assessment and Plan Problem List: (1) Accelerated hypertension ICD Code: I10 - Essential (primary) hypertension Status: Acute (2) Diabetes mellitus ICD Code: E11.9 - Type 2 diabetes mellitus without complications (3) CHF (congestive heart failure) ICD Code: I50.9 - Heart failure, unspecified (4) Ischemic cardiomyopathy ICD Code: I25.5 - Ischemic cardiomyopathy Assessment and Plan Ms. Tarango is a pleasant 51 year old female with a history of cardiomyopathy, DM, HTN, sleep apnea who presented to the ED due to home BP 240/ 141. Patient has been having sinusitis symptoms and she reports some headache and chest discomfort. - Accelerated hypertension - Will give patient Labetalol 20mg IV once. - Start Nifedipine 60mg Qday. Will start Lisinopril 20mg Qday in the AM. - Continue heart failure meds including Carvedilol, diuretics. - Chronic Congestive heart failure, systolic - EF 30-35% in Feb 2017 - Continue Carvedilol, Lisinopril. Lisinopril can be titrated back upto 40mg Qday again. - Patient takes Lasix. Will switch to Torsemide 10mg BID. - Continue Statin, Aspirin. - Acute sinusitis - Continue Flonase, DuoNeb. - Diabetes mellitus - Hold metformin for now. Continue Sliding scale insulin. Goal Blood glucose 140-180 while in-patient. Full code. SCDs. Physician Certification 2 Midnight Certification Type: Admission for Inpatient Services Order for Inpatient Services The services are ordered in accordance with Medicare regulations or non- Medicare payer requirements, as applicable. In the case of services not specified as inpatient-only, they are appropriately provided as inpatient services in accordance with the 2-midnight benchmark. Estimated LOS (days): 2 days is the estimated time the patient will need to remain in the hospital, assuming treatment plan goals are met and no additional complications. Post-Hospital Plan: Home Tita Berrios DO Jun 28, 2017 15:12
[2017-06-28] MEDS ORDERED: LABETALOL HCL 100 MG/20 ML VIAL IV PUSH ONE (15:15)
[2017-06-28] MEDS ORDERED: DEXTROSE 50% IN WATER 50 ML VIAL(D50) IV PUSH PRN (15:15)
[2017-06-28] MEDS ORDERED: RESP: ALBUTEROL 2.5 MG/IPRATROPIUM 0.5 MG NEB (PRN) NEB (15:15)
[2017-06-28] MEDS ORDERED: GLUCAGON 1 MG/ML VIAL OTHER PRN (15:15)
[2017-06-28] MEDS: ACETAMINOPHEN 325 MG TAB PO PRN (18:23)
--- NOTE | 2017-06-28 18:52 | EKG ---
Date Performed: 06/28/2017 Time Performed: 10:03:16 PTAGE: 51 years EKG: Sinus rhythm NONSPECIFIC T-WAVE ABNORMALITY BORDERLINE ECG PREVIOUS TRACING 04/22/17 @ 23.16.56 Compared to prior tracing no significant change DOCTOR: Pat Hernandes Interpretating Date/Time 06/28/2017 18:51:39
[2017-06-28] MEDS: INSULIN ASPART SUPPLEMENTAL SCALE SQ SCH ×2 (19:05→22:47)
[2017-06-28] MEDS: TORSEMIDE 5 MG TAB PO SCH (19:06)
[2017-06-28] MEDS: SODIUM CHLORIDE 0.9% FLUSH 10 ML FLUSH IV FLUSH SCH (20:19)
[2017-06-28] MEDS: CARVEDILOL 12.5 MG TAB PO SCH (20:19)
[2017-06-28] MEDS ORDERED: ATORVASTATIN 40 MG TAB PO SCH (21:00)
[2017-06-28] MEDS: NIFEdipine 60 MG SUSTAINED RELEASE TAB PO SCH (21:00)
[2017-06-28] MEDS: FLUTICASONE PROPIONATE 50 MCG/ACT 16 GM NASAL SPRAY NASAL SCH (22:36)
[2017-06-29 00:04] VITALS: BP 142/72; PULSE 79; RESP 16; TEMP 97.6; O2SAT 98
[2017-06-29 02:56] VITALS: O2SAT 96
[2017-06-29 04:03] VITALS: BP 126/70; PULSE 71; RESP 16; O2SAT 98
[2017-06-29 08:05] VITALS: PULSE 72
[2017-06-29 08:25] VITALS: BP 163/109; PULSE 75; RESP 18; TEMP 97.8; O2SAT 94
[2017-06-29] MEDS ORDERED: MONTELUKAST SODIUM 10 MG TAB PO SCH (09:00)
[2017-06-29] MEDS ORDERED: LISINOPRIL 20 MG TAB PO SCH (09:00)
[2017-06-29] MEDS ORDERED: ASPIRIN 81 MG CHEW TAB CHEW SCH (09:00)
--- NOTE | 2017-06-29 09:03 | HHI.PR ---
Subjective Remarks in no acute distress. no chest pain, sob or dizziness. BP trend noted. Objective Vitals Vital Signs Date Time Temp Pulse Resp B/P (MAP) Pulse Ox O2 Delivery O2 Flow Rate FiO2 06/29/17 08:25 97.8 75 18 163/109 (127) 94 06/29/17 04:03 71 16 126/70 (88) 98 06/29/17 02:56 96 21 06/29/17 00:04 97.6 79 16 142/72 (95) 98 06/28/17 21:30 96 21 06/28/17 20:00 78 06/28/17 19:58 98.6 85 16 155/83 (107) 97 06/28/17 18:21 97 06/28/17 16:31 99.0 87 18 167/90 (115) 96 06/28/17 16:25 06/28/17 16:06 83 18 138/71 (93) 97 Room Air 06/28/17 15:52 91 16 142/69 (93) 06/28/17 15:47 97 172/85 (114) 06/28/17 14:30 92 18 184/91 (122) 95 Room Air 06/28/17 11:22 77 18 161/93 (115) 97 Room Air 06/28/17 11:22 75 18 97 Room Air 06/28/17 11:22 97 Room Air 06/28/17 09:56 122 20 06/28/17 09:42 98.2 97 14 224/133 (163) 97 Result Diagram: 06/28/17 1040 06/28/17 1040 Imaging Last Impressions Chest X-Ray 06/28/17 1051 Signed Impressions: Service Date/Time: Wednesday, June 28, 2017 11:14 - CONCLUSION: Mild compensated cardiomegaly without overt failure. Nicola Lim MD FACR Objective Remarks GENERAL: This is a well-nourished, well-developed patient, in no apparent distress. CARDIOVASCULAR: Regular rate and regular rhythm without murmurs, gallops, or rubs. RESPIRATORY: Clear to auscultation. Breath sounds equal bilaterally. No wheezes , rales, or rhonchi. GASTROINTESTINAL: Abdomen soft, non-tender, nondistended. Normal, active bowel sounds MUSCULOSKELETAL: Extremities without clubbing, cyanosis, or edema. NEURO: Alert & Oriented x4 to person, place, time, situation. Moves all ext x4 Medications and IVs Inpatient Medications Acetaminophen (Tylenol) 650 mg Q4H PRN PO Headache, fever, pain 1-4 Last administered on 06/28/17at 18:23; Start 06/28/17 at 15:00 Albuterol/ Ipratropium (Duoneb Neb) 1 ampule Q4HR NEB PRN NEB Dyspnea; Start at 15:15 Aspirin (Aspirin Chew) 81 mg DAILY CHEW ; Start 06/29/17 at 09:00 Atorvastatin Calcium (Lipitor) 40 mg HS PO Last administered on 06/28/17at 20:19 ; Start 06/28/17 at 21:00 Bisacodyl (Dulcolax Supp) 10 mg DAILY PRN RECTAL SEVERE CONSITIPATION; Start at 15:00 Carvedilol (Coreg) 25 mg BID PO Last administered on 06/28/17at 20:19; Start 06/28 at 21:00 Dextrose (D50w (Vial) Inj) 50 ml UNSCH PRN IV PUSH HYPOGLYCEMIA-SEE COMMENTS; Start 06/28/17 at 15:15 Fluticasone Propionate (Flonase Stephon Spr) 1 spray BID NASAL Last administered on 06/28/17at 22:36; Start 06/28/17 at 21:00 Glucagon (Glucagon Inj) 1 mg UNSCH PRN OTHER HYPOGLYCEMIA-SEE COMMENTS; Start 06/28/17 at 15:15 Hydralazine HCl (Apresoline Inj) 10 mg ONCE ONCE IV PUSH Last administered on 06/28/17at 11:36; Start 06/28/17 at 11:45; Stop 06/28/17 at 11:46; Status DC Insulin Aspart (NovoLOG SUPPLEMENTAL SCALE) 1 ACHS SLIDING SCALE SQ Last administered on 06/28/17at 22:47; Start 06/28/17 at 17:00 Labetalol HCl (Trandate Inj) 20 mg ONCE ONCE IV PUSH Last administered on at 15:51; Start 06/28/17 at 15:15; Stop 06/28/17 at 15:16; Status DC Lactulose (Lactulose Liq) 30 ml DAILY PRN PO SEVERE CONSITIPATION; Start at 15:00 Lisinopril (Prinivil) 20 mg DAILY PO ; Start 06/29/17 at 09:00 Magnesium Hydroxide (Milk Of [place] Liq) 30 ml Q12H PRN PO Mild constipation ; Start 06/28/17 at 15:00 Montelukast Sodium (Singulair) 10 mg DAILY PO ; Start 06/29/17 at 09:00 Naloxone HCl (Narcan Inj) 0.4 mg UNSCH PRN IV PUSH SEE LABEL COMMENTS; Start at 15:00 Nifedipine (Procardia Xl) 60 mg Q12HR PO ; Start 06/28/17 at 21:00 Ondansetron HCl (Zofran Inj) 4 mg Q6H PRN IVP NAUSEA OR VOMITING; Start at 15:00 Sennosides (Senokot) 17.2 mg Q12H PRN PO Moderate constipation; Start 06/28/17 at 15:00 Sodium Chloride (NS Flush) 2 ml BID IV FLUSH Last administered on 06/28/17at 20: 19; Start 06/28/17 at 21:00 Temazepam (Restoril) 15 mg HS PRN PO INSOMNIA; Start 06/28/17 at 15:00 Torsemide (Demadex) 10 mg BID@09,18 PO Last administered on 06/28/17at 19:06; Start 06/28/17 at 18:00 A/P Problem List: (1) Accelerated hypertension ICD Code: I10 - Essential (primary) hypertension Status: Acute (2) Diabetes mellitus ICD Code: E11.9 - Type 2 diabetes mellitus without complications (3) CHF (congestive heart failure) ICD Code: I50.9 - Heart failure, unspecified (4) Ischemic cardiomyopathy ICD Code: I25.5 - Ischemic cardiomyopathy Assessment and Plan A/P - Accelerated hypertension- BP has much improved. - continue Nifedipine 60mg Qday. on Lisinopril 20mg Qday. - Continue heart failure meds including Carvedilol, diuretics. - Chronic Congestive heart failure, systolic- compensated. - EF 30-35% in Feb 2017 - Continue Carvedilol, Lisinopril. Lisinopril can be titrated back upto 40mg Qday again. - Patient takes Lasix. Will switch to Torsemide 10mg BID. - Continue Statin, Aspirin. - Acute sinusitis - Continue Flonase, DuoNeb. - Diabetes mellitus - Hold metformin for now. Continue Sliding scale insulin. Goal Blood glucose 140-180 while in-patient. Discharge Planning dc home later today if BP remains stable. f/u with pcp. Tisha Erickson MD Jun 29, 2017 09:03
[2017-06-29] MEDS: INSULIN ASPART SUPPLEMENTAL SCALE SQ SCH ×2 (09:18→12:48)
[2017-06-29] MEDS: TORSEMIDE 5 MG TAB PO SCH (09:19)
[2017-06-29] MEDS: SODIUM CHLORIDE 0.9% FLUSH 10 ML FLUSH IV FLUSH SCH (09:20)
[2017-06-29] MEDS: FLUTICASONE PROPIONATE 50 MCG/ACT 16 GM NASAL SPRAY NASAL SCH (09:20)
[2017-06-29] MEDS: CARVEDILOL 12.5 MG TAB PO SCH (09:20)
[2017-06-29] MEDS: NIFEdipine 60 MG SUSTAINED RELEASE TAB PO SCH (09:21)
[2017-06-29] MEDS ORDERED: LISI-515 PO ×2 (09:32→14:01)
[2017-06-29] MEDS ORDERED: TORS5TAB2 PO ×2 (09:32→14:01)
[2017-06-29] MEDS ORDERED: NIFE60TA8 PO ×2 (09:32→14:01)
--- NOTE | 2017-06-29 09:32 | HHI.DCPOC ---
Discharge Care Plan Diagnosis: (1) CHF (congestive heart failure) (2) Hypertension (3) Diabetes mellitus Goals to Promote Your Health * To prevent worsening of your condition and complications * To maintain your health at the optimal level Directions to Meet Your Goals Take your medications as prescribed Follow your dietary instruction Follow activity as directed Keep your appointments as scheduled Take your immunizations and boosters as scheduled If your symptoms worsen call your PCP, if no PCP go to Urgent Care Center or Emergency Room Smoking is Dangerous to Your Health. Avoid second hand smoke Call the 24-hour hour crisis hotline for domestic abuse at Ginny Kelly PA-C Jun 29, 2017 9:32 am
[2017-06-29] MEDS: ACETAMINOPHEN 325 MG TAB PO PRN (10:59)
[2017-06-29 13:08] VITALS: BP 145/96; PULSE 71; RESP 18; TEMP 97.8; O2SAT 96
== END 2017-06-29 17:24 | disposition home or self-care (01) | DRG 293 ==
LOC: NEPC 09:38 → NEDA 15:11 → NEPFCDU 16:36
PROVIDERS: ADMIT Internal Medicine; ATTEND Internal Medicine
DX: I11.0 Hypertensive heart disease with heart failure (principal); I10 Essential (primary) hypertension; E11.9 Type 2 diabetes mellitus without complications; J01.90 Acute sinusitis, unspecified; G47.30 Sleep apnea, unspecified; Z79.84 Long term (current) use of oral hypoglycemic drugs; I25.5 Ischemic cardiomyopathy; I50.22 Chronic systolic (congestive) heart failure
CPT/HCPCS: 71045; 80053; 81001; 82948; 83880; 84484; 85025; 85379; 87086; 93005; 94002; 94003; 96374; J0360; J1815

== ENCOUNTER 2017-10-18 20:35 | Inpatient (IN) | payer OTHER ==
[~2017-10-18] VITALS: Ht 165.1 cm; Wt 152.9 kg
[~2017-10-18 20:35] MED LIST changes: +ALBU0.63 NEB; +ALBUAER3 PO; +CARV25TA PO; +FLUT50SP EACH NARE; -HYDR-3799 PO; -METO25TA3 PO; +MONT10TA2 PO; +NIFE60TA8 PO; +TORS5TAB2 PO
[2017-10-18 20:40] VITALS: BP 198/129; PULSE 99; RESP 20; TEMP 97.7; O2SAT 98
[2017-10-18 21:06] VITALS: BP 231/108; O2SAT 99
--- NOTE | 2017-10-18 21:10 | PD ---
HPI Chief Complaint: Chest Pain Time Seen by Provider: 21:01 Travel History International Travel<30 days: No Contact w/Intl Traveler<30days: No Traveled to known affect area: No History of Present Illness HPI Patient comes to the emergency department complaining of chest pain that began yesterday. Patient describes pain as pressure-like in her chest substernal that radiates laterally. Patient reports associated dyspnea, orthopnea, dizziness, and nausea. Patient reports approximately 3 hours prior to arrival pain became constant. Patient reports taking 81 mg of aspirin today as well as her nitro with no improvement of symptoms. Patient reports dyspnea is worse on exertion. Patient reports that she had a echocardiogram done earlier this month. Denies any fevers, abdominal pain, vomiting, loss change in bowel or bladder, neck pain, fevers, cough, or numbness or tingling anywhere. Patient reports her blood pressure is not very well controlled but she is compliant with all medication. Patient reports her last stress test was in February of last year and was fine at that time per patient. 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 Adrian. FORMERLY [facility], [facility] Past Medical History Arthritis: Yes Asthma: Yes Autoimmune Disease: No Blood Disorders: No Anxiety: No Depression: No Heart Rhythm Problems: No Cancer: No Cardiac Catheterization: Yes Cardiovascular Problems: Yes High Cholesterol: Yes Chemotherapy: No Chest Pain: Yes Congestive Heart Failure: Yes COPD: No Cerebrovascular Accident: No Diabetes: Yes Patient Takes Glucophage: Yes Diminished Hearing: No Endocrine: Yes Gastrointestinal Disorders: No GERD: No Genitourinary: No Headaches: Yes Hiatal Hernia: No Heparin Induced Thrombocytopen: No Hypertension: Yes Immune Disorder: No Implanted Vascular Access Dvce: Yes Kidney Stones: No Musculoskeletal: Yes Neurologic: Yes (NUMBNESS AND TINGLING IN HER FINGERS) Psychiatric: No Reproductive: Yes (HAD ENDOMETRIOSIS) Respiratory: Yes Migraines: Yes Radiation Therapy: No Renal Failure: No Seizures: No Sickle Cell Disease: No (CARRIES THE TRAIT) Sleep Apnea: Yes Thyroid Disease: No Ulcer: No ?: Not Past Surgical History Abdominal Surgery: Yes (UMBILICAL HERNIA) AICD: No Arteriovenous Shunt: No Body Medical Devices: Loop Recorder Cardiac Surgery: Yes (LOOP RECORDER) Ear Surgery: No Endocrine Surgery: No Eye Surgery: No Genitourinary Surgery: No Gynecologic Surgery: Yes (TELMA) Hysterectomy: Yes Insulin Pump: No Joint Replacement: No Neurologic Surgery: No Oral Surgery: No Pacemaker: No (HAS LOOP RECORDER) Thoracic Surgery: No Tonsillectomy: Yes Other Surgery: Yes (HYSTERECTOMY, BLADDER STIMULATOR, LOOP RECORDER, UMBILICAL HERNIA) Social History Alcohol Use: Yes (OCCASIONAL ) Tobacco Use: No Substance Use: No Allergies-Medications (Allergen,Severity, Reaction): Coded Allergies: No Known Allergies (Verified Allergy, Unknown, 06/28/17) Reported Meds & Prescriptions Reported Meds & Active Scripts Active Nifedipine ER 24 HR (Nifedipine) 60 Mg Tab 60 Mg PO Q12HR Torsemide 5 Mg Tab 10 Mg PO BID@,18 30 Days Lisinopril 20 Mg Tab 20 Mg PO DAILY K-Tab (Potassium Chloride) 10 Meq Tab 10 Meq PO BID Nitrostat SL (Nitroglycerin) 0.4 Mg Subl 0.4 Mg SL Q5M PRN If multiple doses required, seek medical attention. Atorvastatin (Atorvastatin Calcium) 40 Mg Tab 40 Mg PO HS Aspirin Low Strength (Aspirin) 81 Mg Chew 81 Mg CHEW DAILY Reported Albuterol Neb (Albuterol Sulfate) 0.63 Mg/3 Ml Neb 0.63 Mg NEB Q4HR NEB PRN Fluticasone Nasal [place] 50 Mcg/Act Naspr 50 Mcg EACH NARE BID 50 mcg/spray Singulair (Montelukast Sodium) 10 Mg Tab 10 Mg PO DAILY Proair Hfa (Albuterol Sulfate) 90 Mcg Hfa.aer.ad 2 Puff PO Q4HR NEB Carvedilol 25 Mg Tab 25 Mg PO BID Metformin (Metformin HCl) 1,000 Mg Tab 1,000 Mg PO BIDPC With meals Review of Systems Except as stated in HPI: all other systems reviewed are Neg Physical Exam Narrative GENERAL: Well-developed, overly nourished, appears uncomfortable, and non-ill appearing. SKIN: Focused skin assessment warm and dry. HEAD: Atraumatic. Normocephalic. EYES: Pupils equal and round. EOMI. No scleral icterus. No injection or drainage. ENT: No nasal bleeding or discharge. Mucous membranes pink and moist. NECK: Trachea midline. Supple. No nuclear rigidity. CARDIOVASCULAR: Regular rate and rhythm. No murmur appreciated. Radial and dorsal pulses 2+, intact, and equal bilaterally. RESPIRATORY: No accessory muscle use. No respiratory distress. Decreased breath sounds throughout. Breath sounds equal bilaterally. GASTROINTESTINAL: Abdomen soft, non-tender, nondistended, and no guarding. Hepatic and splenic margins not palpable. No pulsatile mass. MUSCULOSKELETAL: No obvious deformities. No clubbing. No cyanosis. No edema. Full range of motion. NEUROLOGICAL: Awake and alert. No obvious cranial nerve deficits. Motor grossly within normal limits. Normal speech. PSYCHIATRIC: Appropriate mood and affect; insight and judgment normal. Data Data Last Documented VS Vital Signs Date Time Temp Pulse Resp B/P (MAP) Pulse Ox O2 Delivery O2 Flow Rate FiO2 10/18/17 22:44 18 10/18/17 22:39 74 171/93 10/18/17 21:06 99 Room Air 10/18/17 20:40 97.7 Orders Orders Electrocardiogram (10/18/17 21:02) Basic Metabolic Panel (Bmp) (10/18/17 21:02) B-Type Natriuretic Peptide (10/18/17 21:02) Ckmb (Isoenzyme) Profile (10/18/17 21:02) Complete Blood Count With Diff (10/18/17 21:02) Magnesium (Mg) (10/18/17 21:02) Prothrombin Time / Inr (Pt) (10/18/17 21:02) Act Partial Throm Time (Ptt) (10/18/17 21:02) Troponin I (10/18/17 21:02) Ecg Monitoring (10/18/17 21:02) Bilateral Bp Monitoring (10/18/17 21:02) Iv Access Insert/Monitor (10/18/17 21:02) Oximetry (10/18/17 21:02) Oxygen Administration (10/18/17 21:02) Aspirin Chew (Aspirin Chew) (10/18/17 21:15) Nitroglycerin 2% Oint (Nitroglycerin 2% (10/18/17 21:15) Sodium Chloride 0.9% Flush (Ns Flush) (10/18/17 21:15) Chest, Pa & Lat (10/18/17 21:02) Acetaminophen (Tylenol) (10/18/17 21:15) Metoprolol Tartrate Inj (Lopressor Inj) (10/18/17 22:00) Nitroglycerin-D5w 50 Mg/250 Ml (Nitrogly (10/18/17 22:30) Admit Order (Ed Use Only) (10/18/17 22:56) Labs Laboratory Tests Test 10/18/17 21:05 White Blood Count 10.2 TH/MM3 Red Blood Count 4.61 MIL/MM3 Hemoglobin 12.0 GM/DL Hematocrit 36.4 % Mean Corpuscular Volume 78.9 FL Mean Corpuscular Hemoglobin 26.0 PG Mean Corpuscular Hemoglobin Concent 32.9 % Red Cell Distribution Width 16.0 % Platelet Count 292 TH/MM3 Mean Platelet Volume 8.1 FL Neutrophils (%) (Auto) 50.7 % Lymphocytes (%) (Auto) 42.2 % Monocytes (%) (Auto) 4.9 % Eosinophils (%) (Auto) 1.4 % Basophils (%) (Auto) 0.8 % Neutrophils # (Auto) 5.2 TH/MM3 Lymphocytes # (Auto) 4.3 TH/MM3 Monocytes # (Auto) 0.5 TH/MM3 Eosinophils # (Auto) 0.1 TH/MM3 Basophils # (Auto) 0.1 TH/MM3 CBC Comment DIFF FINAL Differential Comment Prothrombin Time 10.0 SEC Prothromb Time International Ratio 1.0 RATIO Activated Partial Thromboplast Time 24.5 SEC Blood Urea Nitrogen 12 MG/DL Creatinine 1.16 MG/DL Random Glucose 279 MG/DL Calcium Level 8.7 MG/DL Magnesium Level 1.8 MG/DL Sodium Level 137 MEQ/L Potassium Level 4.3 MEQ/L Chloride Level 100 MEQ/L Carbon Dioxide Level 30.2 MEQ/L Anion Gap 7 MEQ/L Estimat Glomerular Filtration Rate 59 ML/MIN Total Creatine Kinase 97 U/L Troponin I LESS THAN 0.02 NG/ML B-Type Natriuretic Peptide 92 PG/ML MDM Medical Decision Making Medical Screen Exam Complete: Yes Emergency Medical Condition: Yes Interpretation(s) EKG reviewed by Dr. Pham shows sinus rhythm ventricular rate of 99. No STEMI. Differential Diagnosis Acute coronary syndrome, CHF exacerbation, angina, pneumonia, symptomatic hypertension, metabolic disturbance Narrative Course Patient was seen and examined. IV was established patient placed on cardiac monitoring. Initial laboratory radiological studies were ordered. Patient was given 60 mg of aspirin as well as Nitropaste placed. Upon reevaluation patient reported no improvement of symptoms blood pressure remained to 230/110. Metoprolol as ordered. Patient's pulse dropped below 80 however blood pressure remained 210/98. Patient started on nitro drip. Discussed patient with Dr. Pham, who saw and evaluated the patient is in agreement plan of care and disposition. Discussed all findings and plan of care with patient who is agreeable for admission. All questions were answered. Discussed patient with hospitalist who is agreeable to admit the patient. Patient remained stable throughout ED course. Physician Communication Physician Communication [phone] Torres, who is agreeable to admit the patient. Diagnosis Primary Impression: Accelerated hypertension Additional Impression: Chest pain Qualified Codes: R07.9 - Chest pain, unspecified Admitting Information Admitting Physician Requests: Admit Condition: Stable Tim De León Oct 18, 2017 21:10
[2017-10-18] MEDS ORDERED: NITROGLYCERIN 2% OINT 1 GM PACKET TOP ONE (21:15)
[2017-10-18] MEDS ORDERED: SODIUM CHLORIDE 0.9% FLUSH 10 ML FLUSH IVF PRN (21:15)
[2017-10-18] MEDS ORDERED: ASPIRIN 81 MG CHEW TAB PO ONE (21:15)
[2017-10-18] MEDS ORDERED: ACETAMINOPHEN 325 MG TAB PO ONE (21:15)
--- NOTE | 2017-10-18 21:36 | EKG ---
Date Performed: 10/18/2017 Time Performed: 20:58:30 PTAGE: 52 years EKG: Sinus rhythm LEFT ATRIAL ENLARGEMENT POSSIBLE LEFT VENTRICULAR HYPERTROPHY NONSPECIFIC T-WAVE ABNORMALITY ABNORMA L ECG No significant change from prior electrocardiogram. PREVIOUS TRACING : 06/28/2017 10.03 DOCTOR: Wang Srivastava Interpretating Date/Time 10/18/2017 21:34:47
[2017-10-18 21:44] LABS: AUTOMATED NEUTROPHIL # 5.2 TH/MM3 (1.8-7.7); BASOPHIL # 0.1 TH/MM3 (0-0.2); BASOPHIL % 0.8 % (0.0-2.0); EOSINOPHIL # 0.1 TH/MM3 (0-0.4); EOSINOPHIL % 1.4 % (0.0-4.0); HEMATOCRIT 36.4 % (35.0-46.0); LYMPH % 42.2 % (9.0-44.0); LYMPHOCYTE # 4.3 TH/MM3 (1.0-4.8); MEAN CELL VOLUME 78.9 FL (80.0-100.0); MEAN CORPUSCULAR HGB CONC 32.9 % (32.0-36.0); MEAN PLATELET VOLUME 8.1 FL (7.0-11.0); MONO % 4.9 % (0.0-8.0); MONOCYTE # 0.5 TH/MM3 (0-0.9); NEUT % 50.7 % (16.0-70.0); PLATELET COUNT 292 TH/MM3 (150-450); RED BLOOD COUNT 4.61 MIL/MM3 (4.00-5.30); WHITE BLOOD COUNT 10.2 TH/MM3 (4.0-11.0)
--- NOTE | 2017-10-18 21:53 | RADRPT ---
EXAM DATE/TIME: 10/18/2017 21:13 [facility] COMPARISON: No previous studies available for comparison. INDICATIONS : Chest pain. MEDICAL HISTORY : Congestive heart failure. Myocardial infarction. Asthma. SURGICAL HISTORY : Loop recorder. ENCOUNTER: Initial ACUITY: 1 day PAIN SCORE: 7/10 LOCATION: Bilateral chest FINDINGS: PA and lateral views of the chest demonstrate the lungs to be symmetrically aerated without evidence of mass, infiltrate or effusion. Recorder left anterior chest. The cardiomediastinal contours are unr emarkable. Osseous structures are intact. CONCLUSION: 1. No acute findings. Johnson Jeffers MD on October 18, 2017 at 21:50 Board Certified Radiologist. This report was verified electronically.
[2017-10-18 22:04] LABS: TROPONIN I LESS THAN 0.02 NG/ML (0.02-0.05)
[2017-10-18] MEDS: METOPROLOL TARTRATE 5 MG/5 ML VIAL IVS SCH ×2 (22:05→22:10)
[2017-10-18 22:06] LABS: BICARBONATE 30.2 MEQ/L (21.0-32.0); BLOOD UREA NITROGEN 12 MG/DL (7-18); CALCIUM 8.7 MG/DL (8.5-10.1); CHLORIDE 100 MEQ/L (98-107); CREATININE 1.16 MG/DL (0.50-1.00); GLOMERULAR FILTRATION RATE 59 ML/MIN (>89); GLUCOSE,RANDOM 279 MG/DL (74-106); MAGNESIUM 1.8 MG/DL (1.5-2.5); SODIUM (NA) 137 MEQ/L (136-145)
--- NOTE | 2017-10-18 22:19 | PD ---
Physical Exam Date Seen by Provider: Oct 18, 2017 Time Seen by Provider: 21:30 Narrative I, Dr. Pham, have reviewed the advance practice practitioner's documentation and am in agreement, met with the patient face to face, made the diagnosis, and the medical decision making was done by me. *My assessment and Findings: Patient seen and evaluated with PA, please see PA notes for further details. Coming in with chest pains, dyspnea on exertion, orthopnea. Exam is fairly unremarkable otherwise. Her blood pressure is quite elevated in the ER. She was given nitroglycerin and metoprolol for treatment of blood pressure as well as chest pain. She was given aspirin. EKG shows sinus tachycardia at a rate of 100 bpm. No signs of acute ST elevations or depressions. LVH identified. Laboratory Tests Test 10/18/17 21:05 Mean Corpuscular Volume 78.9 FL (80.0-100.0) Mean Corpuscular Hemoglobin 26.0 PG (27.0-34.0) Creatinine 1.16 MG/DL (0.50-1.00) Random Glucose 279 MG/DL (74-106) Estimat Glomerular Filtration Rate 59 ML/MIN (>89) Troponin I LESS THAN 0.02 NG/ML At this point, considering the hypertensive urgency and chest pain, plan would be to admit the patient for further treatment. Data Data Last Documented VS Vital Signs Date Time Temp Pulse Resp B/P (MAP) Pulse Ox O2 Delivery O2 Flow Rate FiO2 10/18/17 21:06 99 Room Air 10/18/17 20:40 97.7 99 20 Orders Orders Electrocardiogram (10/18/17 21:02) Basic Metabolic Panel (Bmp) (10/18/17 21:02) B-Type Natriuretic Peptide (10/18/17 21:02) Ckmb (Isoenzyme) Profile (10/18/17 21:02) Complete Blood Count With Diff (10/18/17 21:02) Magnesium (Mg) (10/18/17 21:02) Prothrombin Time / Inr (Pt) (10/18/17 21:02) Act Partial Throm Time (Ptt) (10/18/17 21:02) Troponin I (10/18/17 21:02) Ecg Monitoring (10/18/17 21:02) Bilateral Bp Monitoring (10/18/17 21:02) Iv Access Insert/Monitor (10/18/17 21:02) Oximetry (10/18/17 21:02) Oxygen Administration (10/18/17 21:02) Aspirin Chew (Aspirin Chew) (10/18/17 21:15) Nitroglycerin 2% Oint (Nitroglycerin 2% (10/18/17 21:15) Sodium Chloride 0.9% Flush (Ns Flush) (10/18/17 21:15) Chest, Pa & Lat (10/18/17 21:02) Acetaminophen (Tylenol) (10/18/17 21:15) Metoprolol Tartrate Inj (Lopressor Inj) (10/18/17 22:00) Labs Laboratory Tests Test 10/18/17 21:05 White Blood Count 10.2 TH/MM3 Red Blood Count 4.61 MIL/MM3 Hemoglobin 12.0 GM/DL Hematocrit 36.4 % Mean Corpuscular Volume 78.9 FL Mean Corpuscular Hemoglobin 26.0 PG Mean Corpuscular Hemoglobin Concent 32.9 % Red Cell Distribution Width 16.0 % Platelet Count 292 TH/MM3 Mean Platelet Volume 8.1 FL Neutrophils (%) (Auto) 50.7 % Lymphocytes (%) (Auto) 42.2 % Monocytes (%) (Auto) 4.9 % Eosinophils (%) (Auto) 1.4 % Basophils (%) (Auto) 0.8 % Neutrophils # (Auto) 5.2 TH/MM3 Lymphocytes # (Auto) 4.3 TH/MM3 Monocytes # (Auto) 0.5 TH/MM3 Eosinophils # (Auto) 0.1 TH/MM3 Basophils # (Auto) 0.1 TH/MM3 CBC Comment DIFF FINAL Differential Comment Prothrombin Time 10.0 SEC Prothromb Time International Ratio 1.0 RATIO Activated Partial Thromboplast Time 24.5 SEC Blood Urea Nitrogen 12 MG/DL Creatinine 1.16 MG/DL Random Glucose 279 MG/DL Calcium Level 8.7 MG/DL Magnesium Level 1.8 MG/DL Sodium Level 137 MEQ/L Potassium Level 4.3 MEQ/L Chloride Level 100 MEQ/L Carbon Dioxide Level 30.2 MEQ/L Anion Gap 7 MEQ/L Estimat Glomerular Filtration Rate 59 ML/MIN Total Creatine Kinase 97 U/L Troponin I LESS THAN 0.02 NG/ML B-Type Natriuretic Peptide 92 PG/ML [facility] Medical Record Reviewed: Yes Supervised Visit with ARIANE: Yes Diagnosis Primary Impression: Accelerated hypertension Additional Impression: Chest pain Admitting Information Admitting Physician Requests: it Gladis Pham MD Oct 18, 2017 22:19
[2017-10-18] MEDS ORDERED: NITROGLYCERIN-D5W 50 MG/250 ML 250 ML IV PRN (22:30)
[2017-10-18 23:17] VITALS: BP 153/82; PULSE 75; RESP 18; O2SAT 96
[2017-10-19] VITALS (14 sets, daily range): BP systolic 137–187; BP diastolic 82–110; PULSE 67–86; RESP 15–25; TEMP 97.7–98.2; O2SAT 96–99
[2017-10-19] MEDS ORDERED: MAGNESIUM HYDROXIDE SUSP 30 ML CUP PO PRN (01:15)
[2017-10-19] MEDS ORDERED: DEXTROSE 50% IN WATER 50 ML VIAL(D50) IV PUSH PRN (01:15)
[2017-10-19] MEDS ORDERED: LACTULOSE SYRUP 20 GM/30 ML CUP PO PRN (01:15)
[2017-10-19] MEDS ORDERED: NALOXONE HCL 0.4 MG/ML AMP IV PUSH PRN (01:15)
[2017-10-19] MEDS ORDERED: ONDANSETRON HCL 4 MG/2 ML VIAL IVP PRN (01:15)
[2017-10-19] MEDS ORDERED: GLUCAGON 1 MG/ML VIAL OTHER PRN (01:15)
[2017-10-19] MEDS ORDERED: SODIUM CHLORIDE 0.9% FLUSH 10 ML FLUSH IV FLUSH PRN (01:15)
[2017-10-19] MEDS ORDERED: SENNOSIDES 8.6 MG TAB PO PRN (01:15)
[2017-10-19] MEDS ORDERED: BISACODYL 10 MG SUPP RECTAL PRN (01:15)
[2017-10-19] MEDS: SODIUM CHLOR 0.9% 1000 ML INJ 1,000 ML IV SCH (02:12)
[2017-10-19] MEDS: HEPARIN SODIUM - SQ 10,000 UNITS/ML VIAL SQ SCH ×3 (02:12→17:50)
--- NOTE | 2017-10-19 02:58 | HHI.HP ---
[facility] Admission Diagnosis Symptomatic hypertension, chest pain Diagnoses: Travel History International Travel<30 Days: No Contact w/Intl Traveler <30 Da: No Traveled to Known Affected Are: No History of Present Illness 52-year-old female with a past medical history significant for hypertension, diabetes, asthma, hyperlipidemia, CHF (last echo done on 03/16/17 showed an EF of 30-35%) and CAD presents to the emergency department for evaluation of chest pain. The patient reports that her chest pain started approximately 2 days ago when she described it as a squeezing/dull pressure that radiated to her back. She states the pain started substernal and has now radiated to underneath her left breast. She endorses accompanying shortness of breath and dizziness. Her bellman captain is Dr. Adrian. The patient denies any fever/chills. No abdominal pain. No nausea/vomiting/diarrhea. No weakness/fatigue. No lateralizing signs/symptoms. Review of Systems Except as stated in HPI: all other systems reviewed are Neg Past Family Social History Past Medical History hypertension, diabetes, asthma, hyperlipidemia, CHF (last echo done on 03/16/17 showed an EF of 30-35%) and CAD Past Surgical History Hysterectomy Umbilical hernia repair Bladder stimulator placement Loop recorder Reported Medications Reported Meds & Active Scripts Active Nifedipine ER 24 HR (Nifedipine) 60 Mg Tab 60 Mg PO Q12HR Torsemide 5 Mg Tab 10 Mg PO BID@,18 30 Days Lisinopril 20 Mg Tab 20 Mg PO DAILY K-Tab (Potassium Chloride) 10 Meq Tab 10 Meq PO BID Nitrostat SL (Nitroglycerin) 0.4 Mg Subl 0.4 Mg SL Q5M PRN If multiple doses required, seek medical attention. Atorvastatin (Atorvastatin Calcium) 40 Mg Tab 40 Mg PO HS Aspirin Low Strength (Aspirin) 81 Mg Chew 81 Mg CHEW DAILY Reported Albuterol Neb (Albuterol Sulfate) 0.63 Mg/3 Ml Neb 0.63 Mg NEB Q4HR NEB PRN Fluticasone Nasal [place] 50 Mcg/Act Naspr 50 Mcg EACH NARE BID 50 mcg/spray Singulair (Montelukast Sodium) 10 Mg Tab 10 Mg PO DAILY Proair Hfa (Albuterol Sulfate) 90 Mcg Hfa.aer.ad 2 Puff PO Q4HR NEB Carvedilol 25 Mg Tab 25 Mg PO BID Metformin (Metformin HCl) 1,000 Mg Tab 1,000 Mg PO BIDPC With meals Allergies: Coded Allergies: No Known Allergies (Verified Allergy, Unknown, 06/28/17) Family History Mother with CAD. Both parents with diabetes mellitus. Social History Occasional alcohol. Denies tobacco and illicit drugs. Physical Exam Vital Signs Vital Signs Date Time Temp Pulse Resp B/P (MAP) Pulse Ox O2 Delivery O2 Flow Rate FiO2 10/18/17 23:17 75 18 153/82 (105) 96 Room Air 10/18/17 22:44 18 10/18/17 22:39 74 171/93 10/18/17 21:06 99 Room Air 10/18/17 21:06 99 Room Air 10/18/17 21:06 231/108 (149) 10/18/17 20:40 97.7 99 20 198/129 (152) 98 Physical Exam GENERAL: Obese, -[place] female sitting up in bed SKIN: No rashes, ecchymoses or lesions. Cool and dry. HEAD: Atraumatic. Normocephalic. No temporal or scalp tenderness. EYES: Pupils equal round and reactive. Extraocular motions intact. No scleral icterus. No injection or drainage. ENT: Nose without bleeding, purulent drainage or septal hematoma. Throat without erythema, tonsillar hypertrophy or exudate. Uvula midline. Airway patent. NECK: Trachea midline. No JVD or lymphadenopathy. Supple, nontender, no meningeal signs. CARDIOVASCULAR: Regular rate and rhythm without murmurs, gallops, or rubs. RESPIRATORY: Clear to auscultation. Breath sounds equal bilaterally. No wheezes , rales, or rhonchi. GASTROINTESTINAL: Abdomen soft, non-tender, nondistended. No hepato-splenomegaly , or palpable masses. No guarding. MUSCULOSKELETAL: Extremities without clubbing, cyanosis, or edema. No joint tenderness, effusion, or edema noted. No calf tenderness. NEUROLOGICAL: Awake and alert. Cranial nerves II through XII intact. Motor and sensory grossly within normal limits. Normal speech. Laboratory Laboratory Tests Test 10/18/17 21:05 White Blood Count 10.2 Red Blood Count 4.61 Hemoglobin 12.0 Hematocrit 36.4 Mean Corpuscular Volume 78.9 Mean Corpuscular Hemoglobin 26.0 Mean Corpuscular Hemoglobin Concent 32.9 Red Cell Distribution Width 16.0 Platelet Count 292 Mean Platelet Volume 8.1 Neutrophils (%) (Auto) 50.7 Lymphocytes (%) (Auto) 42.2 Monocytes (%) (Auto) 4.9 Eosinophils (%) (Auto) 1.4 Basophils (%) (Auto) 0.8 Neutrophils # (Auto) 5.2 Lymphocytes # (Auto) 4.3 Monocytes # (Auto) 0.5 Eosinophils # (Auto) 0.1 Basophils # (Auto) 0.1 CBC Comment DIFF FINAL Differential Comment Prothrombin Time 10.0 Prothromb Time International Ratio 1.0 Activated Partial Thromboplast Time 24.5 Blood Urea Nitrogen 12 Creatinine 1.16 Random Glucose 279 Calcium Level 8.7 Magnesium Level 1.8 Sodium Level 137 Potassium Level 4.3 Chloride Level 100 Carbon Dioxide Level 30.2 Anion Gap 7 Estimat Glomerular Filtration Rate 59 Total Creatine Kinase 97 Troponin I LESS THAN 0.02 B-Type Natriuretic Peptide 92 Result Diagram: 10/18/17210410/18/172104 Caprini VTE Risk Assessment Caprini VTE Risk Assessment: No/Low Risk (score <= 1) Caprini Risk Assessment Model Point Value = 1 Point Value = 2 Point Value = 3 Point Value = 5 Age 41-60 Minor surgery BMI > 25 kg/m2 Swollen legs Varicose veins or History of unexplained or recurrent spontaneous Oral contraceptives or hormone replacement Sepsis (< 1 month) Serious lung disease, including pneumonia (< 1 month) Abnormal pulmonary function Acute myocardial infarction Congestive heart failure (< 1 month) History of inflammatory bowel disease Medical patient at bed rest Age 61-74 Arthroscopic surgery Major open surgery (> 45 min) Laparoscopic surgery (> 45 min) Malignancy Confined to bed (> 72 hours) Immobilizing plaster cast Central venous access Age >= 75 History of VTE Family history of VTE Factor V Leiden Prothrombin [id number] Lupus anticoagulant Anticardiolipin antibodies Elevated serum homocysteine Heparin-induced thrombocytopenia Other congenital or acquired thrombophilia Stroke (< 1 month) Elective arthroplasty Hip, pelvis, or leg fracture Acute spinal cord injury (< 1 month) Prophylaxis Regimen Total Risk Factor Score Risk Level Prophylaxis Regimen 0-1 Low Early ambulation 2 Moderate Order ONE of the following: *Sequential Compression Device (SCD) *Heparin 5000 units SQ BID 3-4 Higher Order ONE of the following medications: *Heparin 5000 units SQ TID *Enoxaparin/Lovenox 40 mg SQ daily (WT < 150 kg, CrCl > 30 mL/min) *Enoxaparin/Lovenox 30 mg SQ daily (WT < 150 kg, CrCl > 10-29 mL/min) *Enoxaparin/Lovenox 30 mg SQ BID (WT < 150 kg, CrCl > 30 mL/min) AND/OR *Sequential Compression Device (SCD) 5 or more Highest Order ONE of the following medications: *Heparin 5000 units SQ TID (Preferred with Epidurals) *Enoxaparin/Lovenox 40 mg SQ daily (WT < 150 kg, CrCl > 30 mL/min) *Enoxaparin/Lovenox 30 mg SQ daily (WT < 150 kg, CrCl > 10-29 mL/min) *Enoxaparin/Lovenox 30 mg SQ BID (WT < 150 kg, CrCl > 30 mL/min) AND *Sequential Compression Device (SCD) Assessment and Plan Assessment and Plan Assessment/plan: 1. Chest pain/pressure EKG showed sinus rhythm with LVH, no ST segment elevation/depressions, personally reviewed Initial troponin negative ACS rule out pending; serial troponins/EKGs Continue aspirin, beta-renee 2. Hypertensive crisis Patient's blood pressure in the emergency department as high as 231/108 Continue nitro drip Resume home antihypertensives Wean drip as tolerated 3. Diabetes mellitus Holding home metformin Sliding-scale insulin Monitor blood glucose 4. Hyperlipidemia/CHF/CAD Continue home medications FEN NPO Electrolytes: Monitor and replete as needed Physician Certification 2 Midnight Certification Type: Admission for Inpatient Services Order for Inpatient Services The services are ordered in accordance with Medicare regulations or non- Medicare payer requirements, as applicable. In the case of services not specified as inpatient-only, they are appropriately provided as inpatient services in accordance with the 2-midnight benchmark. Estimated LOS (days): 2 2 days is the estimated time the patient will need to remain in the hospital, assuming treatment plan goals are met and no additional complications. Post-Hospital Plan: Not yet determined Annie Torres MD October 19, 2017 02:58
[2017-10-19 04:02] LABS: TROPONIN I LESS THAN 0.02 NG/ML (0.02-0.05)
--- NOTE | 2017-10-19 07:47 | EKG ---
Date Performed: 10/19/2017 Time Performed: 03:10:25 PTAGE: 52 years EKG: Sinus rhythm POSSIBLE LEFT ATRIAL ENLARGEMENT POSSIBLE LEFT VENTRICULAR HYPERTROPHY NONSPECIFIC T-WAVE ABNORMALIT Y ABNORMAL ECG Compared to prior electrocardiogram, rate has decreased PREVIOUS TRACING : 10/18/2017 20.58 DOCTOR: Wang Srivastava Interpretating Date/Time 10/19/2017 07:45:19
[2017-10-19] MEDS ORDERED: CARVEDILOL 12.5 MG TAB PO SCH ×2 (09:00→21:00)
[2017-10-19 09:32] LABS: TROPONIN I LESS THAN 0.02 NG/ML (0.02-0.05)
[2017-10-19] MEDS: DOCUSATE SODIUM 50 MG/SENNA 8.6 MG TAB PO SCH ×2 (09:43→20:39)
[2017-10-19] MEDS: ASPIRIN 81 MG CHEW TAB CHEW SCH (09:43)
[2017-10-19] MEDS: LISINOPRIL 20 MG TAB PO SCH (09:44)
[2017-10-19] MEDS: INSULIN ASPART SUPPLEMENTAL SCALE SQ SCH ×3 (09:59→20:39)
[2017-10-19] MEDS: TORSEMIDE 5 MG TAB PO SCH ×2 (10:54→17:50)
[2017-10-19] MEDS: SODIUM CHLORIDE 0.9% FLUSH 10 ML FLUSH IV FLUSH SCH ×2 (10:54→20:40)
[2017-10-19] MEDS: NIFEdipine 60 MG SUSTAINED RELEASE TAB PO SCH ×2 (11:35→20:39)
--- NOTE | 2017-10-19 15:16 | EKG ---
Date Performed: 10/19/2017 Time Performed: 09:27:18 PTAGE: 52 years EKG: Sinus rhythm VOLTAGE CRITERIA FOR LVH NONSPECIFIC T-WAVE ABNORMALITY ABNORMAL ECG No significant change from prio r electrocardiogram. PREVIOUS TRACING : 10/19/2017 03.10 DOCTOR: Wang Srivastava Interpretating Date/Time 10/19/2017 15:15:13
[2017-10-19] MEDS: ACETAMINOPHEN 325 MG TAB PO PRN (17:40)
--- NOTE | 2017-10-19 18:22 | HHI.PR ---
Addendum to Inpatient Note Addendum Reason: Additional Documentation Additional Information Pt chest pain free at this time. no nausea/vomiting/sob at this time, BPs still not well controlled. in room SBP 180's. RN just gave her a dose of her procardia. Monitor BP closely. I also have increased her coreg dose. Titrate off her nitroglycerin gtt. Resume gtt if SBP>180's. Added hydralazine prn. Reassess pt in AM Chloe Calloway MD October 19, 2017 18:22
[2017-10-19] MEDS ORDERED: hydrALAZINE HCL 10 MG TAB PO PRN (18:30)
[2017-10-19] MEDS ORDERED: ACETAMIN 325 MG/BUTALBITAL 50 MG/CAFFEINE 40 MG TAB PO ONE (20:30)
[2017-10-19] MEDS: ATORVASTATIN 40 MG TAB PO SCH (20:39)
[2017-10-20] VITALS (16 sets, daily range): BP systolic 91–135; BP diastolic 51–77; PULSE 56–79; RESP 17–23; TEMP 97–98.2; O2SAT 92–100
[2017-10-20] MEDS: HEPARIN SODIUM - SQ 10,000 UNITS/ML VIAL SQ SCH ×3 (03:18→16:19)
[2017-10-20 04:04] LABS: AUTOMATED NEUTROPHIL # 5.2 TH/MM3 (1.8-7.7); BASOPHIL % 0.5 % (0.0-2.0); EOSINOPHIL # 0.1 TH/MM3 (0-0.4); EOSINOPHIL % 1.2 % (0.0-4.0); HEMATOCRIT 34.8 % (35.0-46.0); HEMOGLOBIN 11.6 GM/DL (11.6-15.3); LYMPH % 30.5 % (9.0-44.0); LYMPHOCYTE # 2.5 TH/MM3 (1.0-4.8); MEAN CELL VOLUME 78.4 FL (80.0-100.0); MEAN CORPUSCULAR HEMOGLOBIN 26.3 PG (27.0-34.0); MEAN CORPUSCULAR HGB CONC 33.5 % (32.0-36.0); MEAN PLATELET VOLUME 7.8 FL (7.0-11.0); MONO % 4.9 % (0.0-8.0); MONOCYTE # 0.4 TH/MM3 (0-0.9); NEUT % 62.9 % (16.0-70.0); PLATELET COUNT 273 TH/MM3 (150-450); RED BLOOD COUNT 4.43 MIL/MM3 (4.00-5.30); RED CELL DISTRIBUTION WIDTH 16.2 % (11.6-17.2); WHITE BLOOD COUNT 8.3 TH/MM3 (4.0-11.0)
[2017-10-20 04:26] LABS: ALBUMIN 3.2 GM/DL (3.4-5.0); AST (GOT) 16 U/L (15-37); BICARBONATE 29.1 MEQ/L (21.0-32.0); BLOOD UREA NITROGEN 19 MG/DL (7-18); CHLORIDE 100 MEQ/L (98-107); GLOMERULAR FILTRATION RATE 80 ML/MIN (>89); GLUCOSE,RANDOM 266 MG/DL (74-106); SODIUM (NA) 137 MEQ/L (136-145)
[2017-10-20 04:29] LABS: ALKALINE PHOSPHATASE 100 U/L (45-117); ALT (GPT) 24 U/L (10-53); TOTAL BILIRUBIN ADULT 0.8 MG/DL (0.2-1.0); TOTAL PROTEIN 7.2 GM/DL (6.4-8.2)
[2017-10-20] MEDS: INSULIN ASPART SUPPLEMENTAL SCALE SQ SCH ×4 (08:00→20:57)
[2017-10-20] MEDS: LISINOPRIL 20 MG TAB PO SCH (08:35)
[2017-10-20] MEDS: DOCUSATE SODIUM 50 MG/SENNA 8.6 MG TAB PO SCH ×2 (08:41→20:57)
[2017-10-20] MEDS: NIFEdipine 60 MG SUSTAINED RELEASE TAB PO SCH ×2 (08:41→21:01)
[2017-10-20] MEDS: ASPIRIN 81 MG CHEW TAB CHEW SCH (08:41)
[2017-10-20] MEDS: SODIUM CHLORIDE 0.9% FLUSH 10 ML FLUSH IV FLUSH SCH ×2 (08:42→20:33)
[2017-10-20] MEDS: SODIUM CHLOR 0.9% 1000 ML INJ 1,000 ML IV SCH ×3 (08:42→20:33)
[2017-10-20] MEDS: TORSEMIDE 5 MG TAB PO SCH ×2 (08:42→16:19)
[2017-10-20] MEDS: CARVEDILOL 12.5 MG TAB PO SCH ×2 (09:00→20:53)
[2017-10-20] MEDS ORDERED: REGADENOSON INJ 0.4 MG/5 ML SYR ONE (09:48)
--- NOTE | 2017-10-20 10:26 | HHI.PR ---
Subjective Remarks Patient evaluated earlier this morning around 830 Patient feeling well. Denies any chest pain, shortness of breath, nausea or vomiting. Discussed with her and about to go for her stress test Objective Vitals Vital Signs Date Time Temp Pulse Resp B/P (MAP) Pulse Ox O2 Delivery O2 Flow Rate FiO2 10/20/17 08:00 60 10/20/17 08:00 60 18 117/69 (85) 100 10/20/17 07:30 61 21 103/68 (80) 100 10/20/17 06:00 57 10/20/17 04:17 98 21 10/20/17 04:00 97.0 56 17 91/51 (64) 92 10/20/17 04:00 56 10/20/17 02:09 97 21 10/20/17 02:00 62 10/20/17 00:00 58 10/20/17 00:00 58 17 103/59 (74) 96 10/19/17 23:08 98 21 10/19/17 22:00 67 10/19/17 20:00 97.7 67 17 138/82 (100) 98 10/19/17 20:00 67 10/19/17 18:00 79 10/19/17 16:00 73 10/19/17 16:00 98.2 73 25 139/86 (103) 98 10/19/17 14:00 72 10/19/17 11:30 83 10/19/17 11:30 98.0 83 23 155/91 (112) 98 10/19/17 11:03 I/O 10/19/17 10/19/17 10/19/17 10/20/17 10/20/17 10/20/17 07:00 15:00 23:00 07:00 15:00 23:00 Intake Total 400 ml 240 ml Output Total 1500 ml 900 ml Balance -1100 ml -660 ml Intake Oral 400 ml 240 ml IV Total 0 ml Output Urine Total 1500 ml 900 ml # Bowel Movements 1 Result Diagram: 10/20/1733610/20/17336 Imaging Last Impressions Chest X-Ray 10/18/172101 Signed Impressions: Service Date/Time: Wednesday, October 18, 2017 21:13 - CONCLUSION: 1. No acute findings. Johnson Jeffers MD Objective Remarks GENERAL: Obese, -[place] female sitting up in bed CARDIOVASCULAR: Regular rate and rhythm without murmurs RESPIRATORY: Clear to auscultation. Breath sounds equal bilaterally. No wheezes GASTROINTESTINAL: Abdomen soft, non-tender, nondistended. MUSCULOSKELETAL: Extremities without edema. NEUROLOGICAL: Awake and alert. Normal speech. A/P Assessment and Plan 1. Chest pain/pressure EKG showed sinus rhythm with LVH, no ST segment elevation/depressions. Serial troponins negative. Continue aspirin, beta-renee Scheduled for stress test this morning. If intermediate or high risk will consult cardiology. 2. Hypertensive crisis Patient's blood pressure in the emergency department as high as 231/108 Status post nitro drip. Continue p.o. antihypertensives. Adjust as needed. 3. Diabetes mellitus Holding home metformin Sliding-scale insulin Monitor blood glucose 4. Hyperlipidemia/CHF/CAD Continue home medications Discharge Planning Follow-up on stress test. If negative will DC home Chloe Calloway MD October 20, 2017 10:26
[2017-10-20] MEDS: ATORVASTATIN 40 MG TAB PO SCH (21:01)
[2017-10-21] VITALS (20 sets, daily range): BP systolic 97–145; BP diastolic 57–88; PULSE 63–87; RESP 17–45; TEMP 98–98.9; O2SAT 94–99
[2017-10-21] MEDS: HEPARIN SODIUM - SQ 10,000 UNITS/ML VIAL SQ SCH ×2 (01:15→08:33)
[2017-10-21] MEDS: INSULIN ASPART SUPPLEMENTAL SCALE SQ SCH ×4 (08:00→20:43)
[2017-10-21] MEDS: CARVEDILOL 12.5 MG TAB PO SCH ×2 (08:31→20:43)
[2017-10-21] MEDS: DOCUSATE SODIUM 50 MG/SENNA 8.6 MG TAB PO SCH ×2 (08:31→20:43)
[2017-10-21] MEDS: NIFEdipine 60 MG SUSTAINED RELEASE TAB PO SCH ×2 (08:32→20:42)
[2017-10-21] MEDS: TORSEMIDE 5 MG TAB PO SCH ×2 (08:32→17:46)
[2017-10-21] MEDS: ASPIRIN 81 MG CHEW TAB CHEW SCH (08:32)
[2017-10-21] MEDS: LISINOPRIL 20 MG TAB PO SCH (08:32)
[2017-10-21] MEDS: SODIUM CHLORIDE 0.9% FLUSH 10 ML FLUSH IV FLUSH SCH ×2 (08:32→20:43)
--- NOTE | 2017-10-21 10:23 | RADRPT ---
EXAM DATE/TIME: 10/20/2017 10:31 [facility] COMPARISON: MYOCARDIAL PERF PHARM SPECT, GATED W/EF, March 16, 2017, 14:25. INDICATIONS : Substernal chest pain. Coronary artery disease. Myocardial infarction. DOSE: 30.2 mCi Tc99m Myoview at stress. 30.2 mCi Tc99m Myoview at rest. 0.4 mg Lexiscan STRESS SYMPTOMS: Chest tightness. EJECTION FRACTION: 36% MEDICAL HISTORY : Hypertension. Diabetes mellitus type 2. SURGICAL HISTORY : Hysterectomy. ENCOUNTER: Initial ACUITY: 1 day PAIN SCALE: 4/10 LOCATION: Substernal chest TECHNIQUE: 2 day protocol. The patient underwent pharmacologic stress with infusion of prescribed dose. Contin uous ECG tracing was monitored during stress. Gated SPECT imaging was performed after stress and con ventional SPECT imaging was performed at rest. The examination was performed on a SPECT/CT scanner, both attenuation and non-corrected datasets were reviewed. FINDINGS: DISTRIBUTION: The maximum perfused segment at stress is in the lateral wall. PERFUSION STUDY: There is patchy areas of decreased perfusion in the septum and anterior wall on the stress images and a fairly homogeneous and normal pattern of uptake on the rest images. This suggests multiple small segmental areas of perfusion defects with reversibility. This represents a change in appearance when compared to prior myocardial perfusion scan in February 2017, the uptake was homogeneous, but demon strate a fixed perfusion defect in the septum. On today's examination, there is evidence of redistri bution in the basal septum.. GATED STUDY: Global hypokinesia with possible dyskinetic segments in the basal inferior wall. Ejection fraction i s 36% (prior ejection fraction in February 2017 was 39%). CONCLUSION: 1. The pattern of perfusion in the left ventricle at stress is changed when compared to February suggesting multiple subsegmental perfusion defects in the septum and anterior wall. There is evide nce of redistribution in the segments. The appearance does suggest stress-induced ischemia. 2. Global hypokinesia with 36% ejection fraction and possible dyskinesia in the inferior wall RISK CATEGORY: High (>3% Annual Mortality Rate) Jordy Guzmán MD on October 21, 2017 at 10:14 Board Certified Radiologist. This report was verified electronically.
--- NOTE | 2017-10-21 11:16 | HHI.PR ---
Subjective Remarks Patient was seen later after she had the second part of stress test done. Stress test is abnormal, findings discussed with the patient. Patient has her cardiology DrFrancisca in [place] . Says she had a stress test and cardiac cath approximately 2 years ago by her cardiology. She says she had no chest pain overnight and she feels a little bit improved today and she hopes she will go home soon. Will consult cardiology discussed with Dr. Salinas, plan for cardiac cath possible tomorrow. No diaphoresis or shortness of breath no palpitations. Objective Vitals Vital Signs Date Time Temp Pulse Resp B/P (MAP) Pulse Ox O2 Delivery O2 Flow Rate FiO2 10/21/17 08:30 82 10/21/17 08:30 82 19 131/88 (102) 97 10/21/17 08:00 98.3 73 20 118/72 (87) 98 10/21/17 08:00 73 10/21/17 06:00 70 10/21/17 04:03 95 21 10/21/17 04:00 98.0 63 17 124/78 (93) 94 10/21/17 04:00 63 10/21/17 02:00 70 10/21/17 00:00 98.9 67 21 114/57 (76) 96 10/21/17 00:00 67 10/20/17 22:36 99 21 10/20/17 22:00 77 10/20/17 20:00 79 10/20/17 20:00 98.0 79 23 128/74 (92) 97 10/20/17 18:00 79 10/20/17 16:27 99 10/20/17 16:00 79 10/20/17 16:00 97.6 79 22 135/77 (96) 98 10/20/17 14:00 66 10/20/17 12:00 69 10/20/17 12:00 98.2 69 18 117/73 (88) 98 I/O 10/20/17 10/20/17 10/20/17 10/21/17 10/21/17 10/21/17 07:00 15:00 23:00 07:00 15:00 23:00 Intake Total 240 ml 855 ml 480 ml Output Total 900 ml 900 ml 800 ml Balance -660 ml -45 ml -320 ml Intake Oral 240 ml 480 ml 480 ml IV Total 0 ml 375 ml Output Urine Total 900 ml 900 ml 800 ml # Bowel Movements 1 2 Result Diagram: 10/20/17 0337 10/20/17 0337 Imaging Last Impressions Myocardial Perfusion Scan Nuc [facility] 10/20/17 0000 Signed Impressions: Service Date/Time: Friday, October 20, 2017 10:31 - CONCLUSION: 1. The pattern of perfusion in the left ventricle at stress is changed when compared to February 2017 suggesting multiple subsegmental perfusion defects in the septum and anterior wall. There is evidence of redistribution in the segments. The appearance does suggest stress-induced ischemia. 2. Global hypokinesia with 36% % ejection fraction and possible dyskinesia in the inferior wall RISK CATEGORY: High (>3%% Annual Mortality Rate) Jordy Guzmán MD Chest X-Ray 10/18/172101 Signed Impressions: Service Date/Time: Wednesday, October 18, 2017 21:13 - CONCLUSION: 1. No acute findings. Johnson Jeffers MD Objective Remarks GENERAL: Obese, -Mal[place]ian female sitting up in bed CARDIOVASCULAR: Regular rate and rhythm without murmurs RESPIRATORY: Clear to auscultation. Breath sounds equal bilaterally. No wheezes GASTROINTESTINAL: Abdomen soft, obese, non-tender, nondistended. MUSCULOSKELETAL: Extremities without edema. NEUROLOGICAL: Awake and alert. Normal speech. A/P Assessment and Plan Chest pain/pressure Abnormal Stress test EKG showed sinus rhythm with LVH, no ST segment elevation/depressions. Serial troponin negative. Continue aspirin, beta-renee Abnormal stress test reviewed with the patient. Consult cardiology, discussed with Dr Salinas cardio plans for cardiac cath poss tomorrow Hypertensive crisis BP better controlled Patient's blood pressure in the emergency department as high as 231/108 Status post nitro drip. Continue p.o. antihypertensives. Adjust as needed. Diabetes mellitus type 2 Holding home metformin Sliding-scale insulin Monitor blood glucose Hyperlipidemia/CHF/CAD Continue home medications Morbid obesity BMI of 56.1. Advice dietary changes, exercise might consider bariatric sutgery as OP , to follow up as OP. Discharge Planning abnormal stress test, consult cardio, Dr Salinas, plan for cardiac cath poss tomorrow Tiffanie Zimmer MD October 21, 2017 11:16
[2017-10-21] MEDS ORDERED: HEPARIN-NS/PF FLUSH BAG 2,000 ML IV FLUSH ONE (14:30)
[2017-10-21] MEDS: SODIUM CHLOR 0.9% 1000 ML INJ 1,000 ML IV SCH (16:04)
[2017-10-21] MEDS ORDERED: MIDAZOLAM HCL 5 MG/5 ML VIAL ONE (17:58)
[2017-10-21] MEDS ORDERED: HEPARIN SODIUM - IV 10,000 UNITS/10 ML VIAL ONE (18:09)
[2017-10-21] MEDS ORDERED: SODIUM CHLOR 0.9% 1000 ML INJ 500 ML IV SCH (18:48)
--- NOTE | 2017-10-21 19:04 | CATHPROC ---
[employer] HIS Report Study Information Study Number Admission Scheduled Start Study Start [id number] Oct 18 2017 10:57PM 10/21/2017 Oct 21 2017 5:51PM [place] Service Cardiac Catheterization Admit Source Facility Department Other [facility] - Manager Basketball Physician and Clinical Staff Initial Pipo Hinojosa Shipfitter Helper Alex Saucedo,RN Shipfitter Helper Iona Diehl,ESAU Recorder Flor Chou ,RT(R) Scrub Chika Blank,BRYCE TECH2 Procedures Performed Procedure Location (Site) Vessel Name Angiogram LV LV Ventricle Coronary Angiograms LCA Left Coronary Coronary Angiograms RCA Right Coronary L Heart Cath Equipment Time Program Manager Rn Description Size Mfg Part Number Used/Scraped TRANSDUCER, TRUWAVE [id number] 17:57 Accolade * Used W/STOCKCOCK *[id number] 18:39 [place] [employer]a VASCADE, FR5 CLOSURE SYSTEM FR 5 Used *[id number] [id number] *[id number] [id number] *[id number] 17:57 MEDLINE INDUSTRIES PACK, CCL CUSTOM * Used *[id number] 17:57 MEDLINE PACER PEN, SKIN DUAL W/ RULER * Used *[id number] PIG ANG 145 DXTERITY [id number] 18:23 MEDTRONIC FR 5 Used CATHETER *[id number] 17:57 EMED Co WIRE, 3MMJ .035 180CM 180CM Used *[id number] PROBE COVER, STERILE [id number] 17:57 [employer]mate MEDICAL * Used ULTRASOUND W/ GEL *[id number] 17:57 NAMIC MANIFOLD, 4 PORT * Used *[id number] 17:57 NAMIC TUBING, HIGH PRESSURE 48" 48" Used *[id number] 17:57 NYCOMED OMNIPAQUE, 350 MG, 150ML 150ML [id number] Used [id number] 17:57 PISANO MEDICAL BLANKET,WARM AIR CCL * Used *[id number] 17:57 TERTargetingMantra MEDICAL SHEATH, FR5 TERUMO (10CM) FR 5 Used *[id number] Equipment Model, Serial, Lot Number and Expiration Data Description Model Number Serial Number Lot Number Expiration Date PIG ANG 145 DXTERITY CATHETER [id number] 07-28-2019 History: Current Medications Medication Dosage/Unit Route Frequency Last Date/Time Taken LISINOPRIL NTG SL Statins (any) Albuterol CARVEDILOL ASA History: Allergies Allergy Reaction No Known Allergies History: Risk Factors Family History of Hypertension Dyslipidemia Previous LA Previous Heart Failure Premature CAD Yes Yes Yes No Yes Prior Valve Prior PCI Prior CABG Surgery No No No Cerebrovascular Peripheral Artery Chronic Lung On Dialysis Diabetes Diabetes Therapy Disease Disease Disease No No No No Yes Oral History: Stress Tests Stress or Imaging Studies Performed Yes Standard Exercise Stress Test No Stress Echo No Stress Test SPECT Yes Stress Test CMR No Cardiac CTA Coronary Calcium Score No No History: Other Disease Selection Items HTN History: Other Current Smoker No Labs Hgb (g/dl) Hct (%) WBC (l/cumm) Platelets (thousands) 11.60-17.00 35.00-51.00 4.00-11.00 150.00-450.00 11.6 34.8 8.3 273 Glucose (mg/dl) BUN (mg/dl) Creatinine (mg/dl) BUN:Creatinine (1:x) 74.00-106.00 7.00-18.00 0.50-1.30 10.00-20.00 266 19 0.9 21.1 Na (meq/l) K (meq/l) 136.00-145.00 3.50-5.10 137 4 INR (PTT:PT) 0.90-1.10 1 Troponin I (ng/ml) CPK (u/l) CPK-MB (ng/ML) 0.02-0.05 26.00-308.00 0.50-3.60 0.02 78 Not Drawn Medication Medication Total Dose (Bolus/Oral) Medication Total Dosage/Unit 1% XYLOCAINE 20 mL FENTANYL 75 mcg OXYGEN 2 l/min VERSED 4 mg Medications (Bolus/Oral) Medication Time Given Dosage/Unit Administered By Reason VERSED 10/21/2017 6:12:50 PM 2 mg Sheryl, Alex 2 mg VERSED given in lab by Alex Saucedo RN in Left Antecubital via Peripheral IV. Ordered by Pipo Weaver. FENTANYL 10/21/2017 6:13:03 PM 50 mcg Sheryl, Alex 50 mcg FENTANYL given in lab by Alex Saucedo RN in Left Antecubital via Peripheral IV. Ordered by Pipo Garcia. VERSED 10/21/2017 6:17:05 PM 1 mg Sheryl, Alex 1 mg VERSED given in lab by Alex Saucedo RN in Left Antecubital via Peripheral IV. Ordered by Pipo Weaver. 1% XYLOCAINE 10/21/2017 6:19:25 PM 20 mL Chika Blank 20 mL 1% XYLOCAINE given in lab by Chika Blank RCIS TECH2 in Right Groin via Subcutaneous. Ordered by Pipo Salinas. FENTANYL 10/21/2017 6:25:05 PM 25 mcg Sheryl, Alex 25 mcg FENTANYL given in lab by Alex Saucedo RN in Left Antecubital via Peripheral IV. Ordered by Pipo Garcia. OXYGEN 10/21/2017 6:28:23 PM 2 l/min Sheryl, Alex 2 l/min OXYGEN given in lab by Alex Saucedo RN via Nasal. Ordered by Pipo Salinas. VERSED 10/21/2017 6:35:39 PM 1 mg Sheryl, Alex 1 mg VERSED given in lab by Alex Saucedo RN in Left Antecubital via Peripheral IV. Ordered by Pipo Weaver. Medication (Drip) Medication Time Given Dosage/Unit Concentration/Unit Diluent (ml) Solution IV Solutions 10/21/2017 5:53:21 PM 50 mL (IV) NaCl .9 Patient arrived on IV Solutions in Left Antecubital via Peripheral IV. Pump/Drip Flow using NaCl .9. Initial Case Assessment Cardiovascular HR Rhythm NIBP Chest Pain 82 sr 179/80 0 Edema Present Skin color Skin None Normal Warm Dry Circulatory - Right Pulses Dorsalis Pedis Femoral 2 2 Scale (0,1,2,3,4,d) Circulatory - Left Pulses Dorsalis Pedis Femoral 2 1 Scale (0,1,2,3,4,d) Circulatory - Lower Extremities Color Lower Right Color Lower Left Normal Normal Neurological State Oriented to time-place- Alert Moves all extremities person Respiration - General Respiration Rate SpO2 (%) (B/min) 23 96 Final Case Assessment Cardiovascular HR Rhythm NIBP Chest Pain 82 sr 179/80 0 Edema Present Skin color Skin None Normal Warm Dry Circulatory - Right Pulses Dorsalis Pedis Femoral 2 2 Scale (0,1,2,3,4,d) Circulatory - Left Pulses Dorsalis Pedis Femoral 2 1 Scale (0,1,2,3,4,d) Circulatory - Lower Extremities Color Lower Right Color Lower Left Normal Normal Neurological State Oriented to time-place- Alert Moves all extremities person Respiration - General Respiration Rate SpO2 (%) (B/min) 23 96 Chronological Log Time Study Chronological Log 17:49:29 Patient arrived via Bed. 17:49:38 Patient Name, D.O.B, / Armband Verified By R.N. 17:51:00 MD arrived. 17:53:08 Consent signed by the physician and the patient and verified by the Manager Basketball staff. 17:53:09 Pre-op and post- op instructions given; patient acknowledges understanding of instructions. 17:53:10 Verbal Stimulation=2 Physical Stimulation=2 Airway=2 Respiration=2 TOTAL=8. (0=absent, 1=li mited, 2=present) 17:53:14 Patient has been NPO for More than 6Hrs. 17:53:14 Skin Breakdown- none per patient 17:53:15 Patient Warmer Placed on the Table. 17:53:18 Jakob Prominences Protected 17:53:19 A # 20 IV was noted in the Antecubital (left). Grade = 0 17:53:21 A # 20 IV was noted in the Forearm (right). Grade = 0 17:53:21 Patient arrived on IV Solutions in Left Antecubital via Peripheral IV. Pump/Drip Flow using NaCl .9. 17:53:22 History and physical on the chart or being dictated. Assessment: Initial Case, HR=82 BPM, Rhythm=sr, FSMR=442/80 mmhg, Chest Pain=0, Edema=None, Col or=Normal, Skin = Warm, Dry Right Pulses: Jorge Ped=2, Femoral=2 Left Pulses: Jorge Ped=2, Femoral=1 17:53:24 Lower Right Extremities: Color=Normal Lower Left Extremities: Color=Normal Neurological: State=Alert, Ox3, HUA Respiration: Resp=23 B/min, SpO2=96 % Vitals capture started with the following parameters, Patient=Adult, Interval=5 min, Initial Pr ihbyao=455 mmHg, 17:53:28 Deflation Rate=5 mmHg, Cuff placed on Unknown 17:55:36 HR=86 bpm, GGYY=639/81 mmhg, SpO2=96.0 %, Resp=14 B/min, Pain=0, Chidi=8, Ellison=2 17:59:09 HR=76 bpm, NYKO=358/85 mmhg, SpO2=96.0 %, Resp=25 B/min, Pain=0, Chidi=8, Ellison=2 18:03:22 Reference ECG taken 18:04:41 HR=89 bpm, JHVB=812/80 mmhg, SpO2=96.0 %, Resp=23 B/min, Pain=0, Chidi=8, Ellison=2 18:04:51 Bilateral groins prepped with 2% chlorhexidine, and draped after a 3 minute waiting time. 18:09:16 HR=76 bpm, VJDC=613/85 mmhg, SpO2=96.0 %, Resp=20 B/min, Pain=0, Chidi=8, Ellison=2 18:12:50 2 mg VERSED given in lab by Alex Saucedo RN in Left Antecubital via Peripheral IV. Ordered by Pipo Salinas. 18:13:03 50 mcg FENTANYL given in lab by Alex Saucedo RN in Left Antecubital via Peripheral IV. Ord ered by Pipo Salinas. 18:14:15 HR=86 bpm, TVHC=904/71 mmhg, SpO2=91.0 %, Resp=19 B/min, Pain=0, Chidi=8, Ellison=2 18:15:01 Pressure channel 2 zeroed. 18:17:05 1 mg VERSED given in lab by Alex Sacuedo RN in Left Antecubital via Peripheral IV. Ordered by Pipo Salnias. Time Out. Correct patient, correct procedure, correct physician, power injector loaded with con trast with surgical team 18:18:48 present. Time Out Concurred by MD and individual staff in procedure. 18:19:14 HR=77 bpm, ZOZK=660/74 mmhg, SpO2=98.0 %, Resp=17 B/min, Pain=0, Chidi=8, Ellison=2 18:19:22 Case Start 20 mL 1% XYLOCAINE given in lab by Chika Blank RCIS TECH2 in Right Groin via Subcutaneous. Or dered by Brad, 18:19:25 Pipo. 18:22:44 Access site was Right Femoral Artery. 18:23:04 A SHEATH, FR5 TERUMO (10CM) FR 5 was advanced into the Fem Art (right) using the Percutaneo us technique. A PIG ANG 145 DXTERITY CATHETER FR 5 was advanced over a wire. OMNIPAQUE, 350 MG, 150ML 150ML w as used 18:24:22 for injections. 18:24:45 HR=76 bpm, DYIF=064/80 mmhg, SpO2=99.0 %, Resp=17 B/min, Pain=0, Chidi=8, Ellison=2 18:25:05 25 mcg FENTANYL given in lab by Alex Saucedo RN in Left Antecubital via Peripheral IV. Ord ered by Pipo Salinas. Recorded Pressure: LV, HR=75, Condition=Condition 1 18:25:50 (Left Ventricle) LV 118/6/14 18:27:33 The LV was injected at 12 cc/sec for a total of 36. OMNIPAQUE, 350 MG, 150ML 150ML used. 18:28:23 2 l/min OXYGEN given in lab by Alex Saucedo RN via Nasal. Ordered by Pipo Salinas. 18:29:10 HR=76 bpm, WPJC=839/81 mmhg, PcU3=785.0 %, Resp=15 B/min, Pain=0, Chidi=8, Ellison=2 Recorded Pressure: LV, Ao, HR=75, Condition=Condition 1 18:29:20 (Left Ventricle) LV 120/6/14, (Aorta) Ao 119/71/93 18:29:34 Catheter was removed A JL 4.0 INFINITI CATHETER FR 5 was advanced over a wire. OMNIPAQUE, 350 MG, 150ML 150ML was us ed for 18:29:59 injections. 18:30:59 The LCA was injected and visualized at various angles. OMNIPAQUE, 350 MG, 150ML 150ML used . After removing the current catheter a AR MOD INFINITI CATHETER FR 5 was advanced over a WIRE, 3 MMJ .035 180CM 18:32:49 180CM. 18:34:02 The RCA was injected and visualized at various angles. OMNIPAQUE, 350 MG, 150ML 150ML used . 18:34:09 Catheter was removed 18:34:48 HR=80 bpm, CNPM=975/82 mmhg, SkT6=908.0 %, Resp=17 B/min 18:34:51 Case End Assessment: Final Case, HR=82 BPM, Rhythm=sr, BCJJ=383/80 mmhg, Chest Pain=0, Edema=None, Col or=Normal, Skin = Warm, Dry Right Pulses: Jorge Ped=2, Femoral=2 Left Pulses: Jorge Ped=2, Femoral=1 18:35:04 Lower Right Extremities: Color=Normal Lower Left Extremities: Color=Normal Neurological: State=Alert, Ox3, HUA Respiration: Resp=23 B/min, SpO2=96 % 18:35:12 Catheter(s) removed without difficulty 18:35:39 1 mg VERSED given in lab by Alex Saucedo, RN in Left Antecubital via Peripheral IV. Order ed by Pipo Salinas. 18:36:21 An injection in the Fem Art (right) was made through the SHEATH, FR5 TERUMO (10CM) FR 5. 18:38:43 VASCADE, FR5 CLOSURE SYSTEM FR 5 placement in the Fem Art (right) 18:39:10 HR=80 bpm, LCNX=267/74 mmhg, SpO2=99.0 %, Resp=23 B/min, Pain=0, Chidi=8, Ellison=2 18:39:13 Sterile dressing applied to site 18:39:14 No case complications noted. 18:39:34 Cine recording checked. 18:39:36 Bedside Report will be given. 18:39:42 A Left Heart Cath was performed. 18:44:13 HR=74 bpm, UAPW=418/75 mmhg, SpO2=99.0 %, Resp=19 B/min, Pain=0, Chidi=8, Ellison=2 18:49:59 HR=73 bpm, KBGW=517/66 mmhg, SpO2=99.0 %, Resp=17 B/min, Pain=0, Chidi=8, Ellison=2 18:54:50 HR=74 bpm, WETX=215/89 mmhg, AfQ9=343.0 %, Resp=18 B/min, Pain=0, Chidi=8, Ellison=2 18:59:12 HR=79 bpm, AFJV=746/84 mmhg, BgU5=163.0 %, Resp=17 B/min, Pain=0, Chidi=8, Ellison=2 19:04:26 Patient moved to [facility] End Study - Contrast Media Used In Study Contrast Total Opened (mL) Total Used (mL) Total Wasted (mL) Omnipaque 85 85 0 End Study - Maximum Contrast Load Max Contrast Load (mL) 849.5 End Study - Radiation Exposure Fluoro Time (minutes) 1.9 End Study - Sheaths Sheaths Pulled By Sheath Hold Time (min) Chika Blank 15 End Study - Patient Disposition Complications Transferred To Interventional Outcome No Critical Care Bed No attempt made
[2017-10-21] MEDS: ATORVASTATIN 40 MG TAB PO SCH (20:42)
[2017-10-21 22:30] LABS: CHOLESTEROL/ HDL RATIO 3.02 RATIO; HDL CHOLESTEROL 48.6 MG/DL (40.0-60.0)
[2017-10-22] VITALS (17 sets, daily range): BP systolic 114–164; BP diastolic 56–79; PULSE 61–92; RESP 17–30; TEMP 97.9–99.1; O2SAT 93–100
[2017-10-22] MEDS: INSULIN ASPART SUPPLEMENTAL SCALE SQ SCH ×2 (06:10→12:00)
[2017-10-22] MEDS: SODIUM CHLOR 0.9% 1000 ML INJ 1,000 ML IV SCH ×2 (07:55→14:05)
[2017-10-22] MEDS: DOCUSATE SODIUM 50 MG/SENNA 8.6 MG TAB PO SCH (07:56)
[2017-10-22] MEDS: SODIUM CHLORIDE 0.9% FLUSH 10 ML FLUSH IV FLUSH SCH (07:56)
[2017-10-22] MEDS: CARVEDILOL 12.5 MG TAB PO SCH (07:56)
[2017-10-22] MEDS: ASPIRIN 81 MG CHEW TAB CHEW SCH (07:56)
[2017-10-22] MEDS: TORSEMIDE 5 MG TAB PO SCH (07:58)
[2017-10-22] MEDS: NIFEdipine 60 MG SUSTAINED RELEASE TAB PO SCH (07:58)
[2017-10-22] MEDS ORDERED: IOHEXOL 350 MG/ML 100 ML BTL (for Cath Lab) OTHER ONE (08:17)
[2017-10-22] MEDS ORDERED: LISINOPRIL 20 MG TAB PO SCH (09:00)
[2017-10-22] MEDS: ACETAMINOPHEN 325 MG TAB PO PRN (11:53)
--- NOTE | 2017-10-22 11:58 | MB ---
cc: Pipo Salinas MD DATE: 10/21/2017 HISTORY OF PRESENT ILLNESS: This is a 52-year-old black female with a history of hypertension, diabetes mellitus, cardiomyopathy and carotid disease. She presented with substernal chest discomfort that started 2 days ago, radiating to her neck. She also had shortness of breath and dizziness. She underwent nuclear myocardial perfusion study, which showed anterior anteroseptal reversible defects consistent with ischemia, ejection fraction of 36%, with possible inferior wall dyskinesis. The patient was referred for further cardiac evaluation. PAST MEDICAL HISTORY: History of hypertension, diabetes mellitus, asthma, dyslipidemia, congestive heart failure. Echocardiogram in 02/2017 showed ejection fraction of 30-35%, history of coronary artery disease, history of morbid obesity. PAST SURGICAL HISTORY: Hysterectomy, umbilical hernia repair, ____ stimulator placement, loop recorder. MEDICATIONS: Nifedipine, torsemide, lisinopril, K-Tab, nitroglycerin p.r.n., atorvastatin, aspirin, albuterol, fluticasone, Singulair, ProAir, carvedilol and metformin. ALLERGIES: NONE. SOCIAL HISTORY: The patient does not smoke. She drinks alcohol occasionally. FAMILY HISTORY: Positive for heart disease in her mother. REVIEW OF SYSTEMS: Otherwise negative. PHYSICAL EXAMINATION: VITAL SIGNS: Blood pressure 144/82, pulse 76 and regular. HEENT: NECK: 2+ carotid upstroke, no bruits. LUNGS: Clear to auscultation, distant sounds. HEART: Regular, with no murmur, gallop, rub. ABDOMEN: Soft, morbidly obese. No bruits. EXTREMITIES: With 1+ edema, 1+ distal pulses. NEUROLOGIC: Grossly nonfocal. ECHOCARDIOGRAM: Was reviewed and showed normal sinus rhythm, left ventricular hypertrophy and nonspecific T-wave changes. LABORATORY DATA: Hemoglobin 11.6, potassium 4.0, creatinine 0.9. CK and troponin normal. BNP 92. DIAGNOSES: 1. Unstable angina. 2. Abnormal nuclear myocardial perfusion study. 3. Morbid obesity. 4. Diabetes mellitus. 5. Hypertension. 6. Dyslipidemia. 7. Congestive heart failure. 8. Cardiomyopathy. 9. Coronary artery disease. DISPOSITION: Mr. Tarango will undergo cardiac catheterization and coronary intervention necessary. The patient understood risks and benefits and wishes to proceed. MD AUSTIN Domínguez , 06:10 PM , 06:39 PM
--- NOTE | 2017-10-22 12:06 | MR ---
cc: Pipo Salinas MD DATE: 10/21/2017 This procedure is urgent. INDICATIONS FOR PROCEDURE: Unstable angina, class IV angina, high risk nuclear myocardial perfusion study, congestive heart failure class II, cardiomyopathy. PROCEDURES PERFORMED: 1. Right and left heart catheterization, with left ventriculography and selective angiography. 2. Moderate sedation. ACCESS SITE: Right femoral artery. EQUIPMENT USED: 5-[place] pigtail catheter, JL4 and AR modified coronary catheters. MEDICATIONS: Versed and fentanyl IV. CONTRAST: Omnipaque 85 mL. COMPLICATIONS: None. ESTIMATED BLOOD LOSS: Less than 10 mL. METHOD OF HEMOSTASIS: closure. RESULTS OF HEMODYNAMICS Heart rate 81 beats per minute, with an end diastolic pressure 6 mmHg. Left ventricle 130/66, aorta /126 71/93. The left ventricular ejection fraction 35%. Wall motion, moderate global hypokinesis, no mitral regurgitation. Left main coronary is patent. Left anterior descending artery patent. D1 small patent, left ramus intermedius large, patent. Left circumflex artery patent. OM1 patent. Right coronary artery is nondominant vessel, which is patent. DIAGNOSES: 1. Widely patent coronary arteries. 2. Moderate left ventricular dysfunction, consistent with nonischemic cardiomyopathy. DISPOSITION: Ms. Tarango can be reassurred about her coronary artery status. Her study revealed widely patent coronary arteries. Her nuclear myocardial perfusion study was falsely abnormal. I recommend her to continue therapy for congestive heart failure. Her study is consistent with nonischemic cardiomyopathy. She will followup with her primary compliance professional after discharge. MD DAVID Domínguez/CLAIRE , 06:45 PM , 07:10 PM
[2017-10-22] MEDS ORDERED: LISI-515 PO (12:47)
--- NOTE | 2017-10-22 12:47 | HHI.DS ---
Discharge Summary Admission Date Oct 18, 2017 at 22:57 Discharge Date: October 22, 2017 Admitting Diagnosis Symptomatic hypertension, chest pain (1) CAD (coronary artery disease) ICD Code: I25.10 - Atherosclerotic heart disease of [place] coronary artery without angina pectoris (2) Diabetes mellitus ICD Code: E11.9 - Type 2 diabetes mellitus without complications (3) Morbid obesity ICD Code: E66.01 - Morbid (severe) obesity due to excess calories (4) Hypertension ICD Code: I10 - Essential (primary) hypertension Procedures cardiac cath Brief History - From Admission 52-year-old female with a past medical history significant for hypertension, diabetes, asthma, hyperlipidemia, CHF (last echo done on 03/16/17 showed an EF of 30-35%) and CAD presents to the emergency department for evaluation of chest pain. The patient reports that her chest pain started approximately 2 days ago when she described it as a squeezing/dull pressure that radiated to her back. She states the pain started substernal and has now radiated to underneath her left breast. She endorses accompanying shortness of breath and dizziness. Her foreign exchange clerk is Dr. Adrian. The patient denies any fever/chills. No abdominal pain. No nausea/vomiting/diarrhea. No weakness/fatigue. No lateralizing signs/symptoms. CBC/BMP: 10/20/17 0337 10/20/17 0337 Significant Findings Laboratory Tests Test 10/20/17 03:37 10/21/17 20:34 Hematocrit 34.8 % (35.0-46.0) Mean Corpuscular Volume 78.4 FL (80.0-100.0) Mean Corpuscular Hemoglobin 26.3 PG (27.0-34.0) Blood Urea Nitrogen 19 MG/DL (7-18) Random Glucose 266 MG/DL (74-106) Albumin 3.2 GM/DL (3.4-5.0) Estimat Glomerular Filtration Rate 80 ML/MIN (>89) Imaging Last Impressions Myocardial Perfusion Scan Nuc Med 10/20/17 0000 Signed Impressions: Service Date/Time: Friday, October 20, 2017 10:31 - CONCLUSION: 1. The pattern of perfusion in the left ventricle at stress is changed when compared to February 2017 suggesting multiple subsegmental perfusion defects in the septum and anterior wall. There is evidence of redistribution in the segments. The appearance does suggest stress-induced ischemia. 2. Global hypokinesia with 36% % ejection fraction and possible dyskinesia in the inferior wall RISK CATEGORY: High (>3%% Annual Mortality Rate) Jordy Guzmán MD Chest X-Ray 10/18/172101 Signed Impressions: Service Date/Time: Wednesday, October 18, 2017 21:13 - CONCLUSION: 1. No acute findings. Johnson Jeffers MD PE at Discharge GENERAL: Obese, -[place] female sitting up in bed CARDIOVASCULAR: Regular rate and rhythm without murmurs RESPIRATORY: Clear to auscultation. Breath sounds equal bilaterally. No wheezes GASTROINTESTINAL: Abdomen soft, obese, non-tender, nondistended. MUSCULOSKELETAL: Extremities without edema. NEUROLOGICAL: Awake and alert. Normal speech. Hospital Course Chest pain/pressure Abnormal Stress test EKG showed sinus rhythm with LVH, no ST segment elevation/depressions. Serial troponin negative. Continue aspirin, beta-renee Abnormal stress test reviewed with the patient. Consult cardiology, discussed with Dr Salinas cardio s/p cardiac cath 10/22 Cath with patent cors and moderate LV dysfunction c/w nonischemic CM. Groin stable. Continue tx for CHF. OK to discharge home. F/u w PCP after discharge. Hypertensive crisis BP better controlled Patient's blood pressure in the emergency department as high as 231/108 Status post nitro drip. Continue p.o. antihypertensives. Adjust as needed. Diabetes mellitus type 2 Holding home metformin Sliding-scale insulin Monitor blood glucose Hyperlipidemia/CHF/CAD Continue home medications Morbid obesity BMI of 56.1. Advice dietary changes, exercise might consider bariatric sutgery as OP , to follow up as OP. Discharge Planning Abnormal stress test, consult cardio, Dr Salinas, s/p cardiac cath. Discussed with Dr Salinas, patient is cleared for DC . To follow up as OP with her cardiology Dr . Increase lisinopril to 40 mg daily . BP is better controlled. Pt Condition on Discharge: Stable Discharge Disposition: Discharge Home Discharge Time: > 30 minutes Discharge Instructions DIET: Follow Instructions for: Heart Healthy Diet, Diabetic Diet Activities you can perform: Regular-No Restrictions Follow up Referrals: Cardiology - 1 Week PCP Follow-up - 2-3 Days Changed Medications: Lisinopril (Lisinopril) 20 Mg Tab 40 MG PO DAILY for Blood Pressure Management, #30 TAB (Changed from: 20 MG) Continued Medications: Albuterol Neb (Albuterol Neb) 0.63 Mg/3 Ml Neb 0.63 MG NEB Q4HR NEB PRN for SHORTNESS OF BREATH, #25 NEBULE 0 Refills Albuterol Sulfate (Proair Hfa) 90 Mcg Hfa.aer.ad 2 PUFF PO Q4HR NEB Aspirin (Aspirin Low Strength) 81 Mg Chew 81 MG CHEW DAILY for Heart, #30 EA Atorvastatin (Atorvastatin) 40 Mg Tab 40 MG PO HS for Cholesterol Management, #90 TAB Carvedilol (Carvedilol) 25 Mg Tab 25 MG PO BID, TAB 0 Refills Fluticasone Nasal [place] (Fluticasone Nasal [place]) 50 Mcg/Act Naspr 50 MCG EACH NARE BID for Allergy Management, BOTTLE 0 Refills 50 mcg/spray Metformin (Metformin) 1,000 Mg Tab 1000 MG PO BIDPC for Blood Sugar Management, #60 TAB 0 Refills With meals Montelukast (Singulair) 10 Mg Tab 10 MG PO DAILY, TAB 0 Refills Nifedipine ER 24 HR (Nifedipine ER 24 HR) 60 Mg Tab 60 MG PO Q12HR for Blood Pressure Management, #60 TAB Nitroglycerin SL (Nitrostat SL) 0.4 Mg Subl 0.4 MG SL Q5M PRN for CHEST PAIN, #15 TAB If multiple doses required, seek medical attention. Potassium Chloride ER (K-Tab) 10 Meq Tab 10 MEQ PO BID for Electrolyte Replacement, #60 TAB 3 Refills Torsemide (Torsemide) 5 Mg Tab 10 MG PO BID@09,18 for CHF for 30 Days, TAB Tiffanie Zimmer MD October 22, 2017 12:47
--- NOTE | 2017-10-22 15:16 | PD.CARD.PN ---
Subjective Subjective Remarks No CP or SOB, feels better Objective Medications Current Medications Medications (Trade) Dose Ordered Sig/Lidia Route Start Time Stop Time Status Last Admin Nitroglycerin/ Dextrose 250 ml @ 1.5 mls/hr TITRATE PRN IV 10/18/17 22:30 10/18/17 22:39 (NS Flush) 2 ml UNSCH PRN IV FLUSH 10/19/17 01:15 (NS Flush) 2 ml BID IV FLUSH 10/19/17 09:00 10/22/17 07:56 (Tylenol) 650 mg Q4H PRN PO 10/19/17 01:15 10/22/17 11:53 (Zofran Inj) 4 mg Q6H PRN IVP 10/19/17 01:15 (Heparin Inj) 5,000 units Q8H SQ 10/19/17 01:15 Future Hold 10/21/17 08:33 (Narcan Inj) 0.4 mg UNSCH PRN IV PUSH 10/19/17 01:15 (Jennie-Colace) 1 tab BID PO 10/19/17 09:00 10/22/17 07:56 (Milk Of Magnesia Liq) 30 ml Q12H PRN PO 10/19/17 01:15 (Senokot) 17.2 mg Q12H PRN PO 10/19/17 01:15 (Dulcolax Supp) 10 mg DAILY PRN RECTAL 10/19/17 01:15 (Lactulose Liq) 30 ml DAILY PRN PO 10/19/17 01:15 (Aspirin Chew) 81 mg DAILY CHEW 10/19/17 09:00 10/22/17 07:56 (Lipitor) 40 mg HS PO 10/19/17 21:00 10/21/17 20:42 (Procardia Xl) 60 mg Q12HR PO 10/19/17 09:00 10/22/17 07:58 (Demadex) 10 mg BID@18 PO 10/19/17 09:00 10/22/17 07:58 (D50w (Vial) Inj) 50 ml UNSCH PRN IV PUSH 10/19/17 01:15 (Glucagon Inj) 1 mg UNSCH PRN OTHER 10/19/17 01:15 (NovoLOG SUPPLEMENTAL SCALE) 1 ACHS SLIDING SCALE SQ 10/19/17 08:00 10/22/17 06:10 (Apresoline) 10 mg Q6HR PRN PO 10/19/17 18:30 (Coreg) 25 mg BID PO 10/20/17 09:00 10/22/17 07:56 Sodium Chloride 1,000 ml @ 75 mls/hr [id number] IV 10/20/17 08:45 10/22/17 07:55 (Prinivil) 40 mg DAILY PO 10/22/17 09:00 10/22/17 07:58 Vital Signs / I&O Vital Signs Date Time Temp Pulse Resp B/P (MAP) Pulse Ox O2 Delivery O2 Flow Rate FiO2 10/22/17 10:00 92 10/22/17 09:01 74 25 164/79 (107) 97 10/22/17 09:01 74 10/22/17 09:00 73 10/22/17 09:00 73 26 97 10/22/17 08:01 71 19 131/69 (89) 97 10/22/17 08:01 71 10/22/17 08:00 97.9 72 28 131/69 (89) 97 10/22/17 08:00 72 10/22/17 07:00 Bi-Pap 10/22/17 06:00 73 10/22/17 06:00 98 21 10/22/17 04:58 100 30 10/22/17 04:00 67 10/22/17 04:00 99.1 67 18 114/60 (78) 100 10/22/17 02:00 61 10/22/17 01:16 95 21 10/22/17 00:00 98.9 66 17 119/56 (77) 93 10/22/17 00:00 66 10/21/17 23:00 Bi-Pap 21 10/21/17 22:50 98 21 10/21/17 22:00 83 10/21/17 21:35 98 21 10/21/17 20:00 82 10/21/17 20:00 98.6 82 23 145/70 (95) 97 10/21/17 17:00 76 10/21/17 17:00 76 25 98 10/21/17 16:00 72 10/21/17 16:00 76 24 99 I/O 10/21/17 10/21/17 10/21/17 10/22/17 10/22/1710/22/18 07:00 15:00 23:00 07:00 15:00 23:00 Intake Total 480 ml 960 ml 1252 ml Output Total 800 ml Balance -320 ml 960 ml 1252 ml Intake Oral 480 ml 960 ml 480 ml IV Total 772 ml Output Urine Total 800 ml # Voids 2 4 # Bowel Movements 2 0 Physical Exam GENERAL: In NAD. SKIN: Warm and dry. HEAD: Normocephalic. EYES: No scleral icterus. No injection or drainage. NECK: Supple, trachea midline. No JVD or lymphadenopathy. CARDIOVASCULAR: Regular rate and rhythm without murmurs, gallops, or rubs. RESPIRATORY: Breath sounds equal bilaterally. No accessory muscle use. GASTROINTESTINAL: Abdomen soft, non-tender, nondistended. MUSCULOSKELETAL: No cyanosis, or edema. Groin stable Laboratory Laboratory Tests Test 10/21/17 20:34 Triglycerides Level 115 MG/DL Cholesterol Level 147 MG/DL LDL Cholesterol 75 MG/DL HDL Cholesterol 48.6 MG/DL Cholesterol/HDL Ratio 3.02 RATIO Assessment and Plan Problem List: (1) CHF (congestive heart failure) ICD Codes: I50.9 - Heart failure, unspecified (2) Nonischemic cardiomyopathy ICD Codes: I42.8 - Other cardiomyopathies (3) Morbid obesity ICD Codes: E66.01 - Morbid (severe) obesity due to excess calories (4) Hypertension ICD Codes: I10 - Essential (primary) hypertension (5) Diabetes mellitus ICD Codes: E11.9 - Type 2 diabetes mellitus without complications Assessment and Plan Cath with patent cors and moderate LV dysfunction c/w nonischemic CM. Continue tx for CHF. OK to discharge home. F/u w PCP after discharge. Pipo Salinas MD October 22, 2017 15:16
--- NOTE | 2017-10-22 15:31 | PD.CARD.PN ---
Subjective Subjective Remarks No CP or SOB, feels better Objective Medications Current Medications Medications (Trade) Dose Ordered Sig/Lidia Route Start Time Stop Time Status Last Admin Nitroglycerin/ Dextrose 250 ml @ 1.5 mls/hr TITRATE PRN IV 10/18/17 22:30 10/18/17 22:39 (NS Flush) 2 ml UNSCH PRN IV FLUSH 10/19/17 01:15 (NS Flush) 2 ml BID IV FLUSH 10/19/17 09:00 10/22/17 07:56 (Tylenol) 650 mg Q4H PRN PO 10/19/17 01:15 10/22/17 11:53 (Zofran Inj) 4 mg Q6H PRN IVP 10/19/17 01:15 (Heparin Inj) 5,000 units Q8H SQ 10/19/17 01:15 Future Hold 10/21/17 08:33 (Narcan Inj) 0.4 mg UNSCH PRN IV PUSH 10/19/17 01:15 (Jennie-Colace) 1 tab BID PO 10/19/17 09:00 10/22/17 07:56 (Milk Of Magnesia Liq) 30 ml Q12H PRN PO 10/19/17 01:15 (Senokot) 17.2 mg Q12H PRN PO 10/19/17 01:15 (Dulcolax Supp) 10 mg DAILY PRN RECTAL 10/19/17 01:15 (Lactulose Liq) 30 ml DAILY PRN PO 10/19/17 01:15 (Aspirin Chew) 81 mg DAILY CHEW 10/19/17 09:00 10/22/17 07:56 (Lipitor) 40 mg HS PO 10/19/17 21:00 10/21/17 20:42 (Procardia Xl) 60 mg Q12HR PO 10/19/17 09:00 10/22/17 07:58 (Demadex) 10 mg BID@18 PO 10/19/17 09:00 10/22/17 07:58 (D50w (Vial) Inj) 50 ml UNSCH PRN IV PUSH 10/19/17 01:15 (Glucagon Inj) 1 mg UNSCH PRN OTHER 10/19/17 01:15 (NovoLOG SUPPLEMENTAL SCALE) 1 ACHS SLIDING SCALE SQ 10/19/17 08:00 10/22/17 06:10 (Apresoline) 10 mg Q6HR PRN PO 10/19/17 18:30 (Coreg) 25 mg BID PO 10/20/17 09:00 10/22/17 07:56 Sodium Chloride 1,000 ml @ 75 mls/hr [id number] IV 10/20/17 08:45 10/22/17 07:55 (Prinivil) 40 mg DAILY PO 10/22/17 09:00 10/22/17 07:58 Vital Signs / I&O Vital Signs Date Time Temp Pulse Resp B/P (MAP) Pulse Ox O2 Delivery O2 Flow Rate FiO2 10/22/17 15:14 78 10/22/17 15:14 78 21 118/70 (86) 98 10/22/17 15:00 85 30 123/66 (85) 99 10/22/17 15:00 85 10/22/17 14:34 76 27 118/66 (83) 99 10/22/17 14:34 76 10/22/17 14:00 76 10/22/17 14:00 76 26 98 10/22/17 13:00 78 10/22/17 13:00 78 26 129/71 (90) 98 10/22/17 12:00 72 10/22/17 12:00 98.4 72 27 127/67 (87) 98 10/22/17 10:00 92 10/22/17 09:01 74 25 164/79 (107) 97 10/22/17 09:01 74 10/22/17 09:00 73 10/22/17 09:00 73 26 97 10/22/17 08:01 71 19 131/69 (89) 97 10/22/17 08:01 71 10/22/17 08:00 97.9 72 28 131/69 (89) 97 10/22/17 08:00 72 10/22/17 07:00 Bi-Pap 10/22/17 06:00 73 10/22/17 06:00 98 21 10/22/17 04:58 100 30 10/22/17 04:00 67 10/22/17 04:00 99.1 67 18 114/60 (78) 100 10/22/17 02:00 61 10/22/17 01:16 95 21 10/22/17 00:00 98.9 66 17 119/56 (77) 93 10/22/17 00:00 66 10/21/17 23:00 Bi-Pap 21 10/21/17 22:50 98 21 10/21/17 22:00 83 10/21/17 21:35 98 21 10/21/17 20:00 82 10/21/17 20:00 98.6 82 23 145/70 (95) 97 10/21/17 17:00 76 10/21/17 17:00 76 25 98 10/21/17 16:00 72 10/21/17 16:00 76 24 99 I/O 10/21/17 10/21/17 10/21/17 10/22/17 10/22/17 10/22/17 07:00 15:00 23:00 07:00 15:00 23:00 Intake Total 480 ml 960 ml 1252 ml Output Total 800 ml Balance -320 ml 960 ml 1252 ml Intake Oral 480 ml 960 ml 480 ml IV Total 772 ml Output Urine Total 800 ml # Voids 2 4 # Bowel Movements 2 0 Physical Exam GENERAL: In NAD. SKIN: Warm and dry. HEAD: Normocephalic. EYES: No scleral icterus. No injection or drainage. NECK: Supple, trachea midline. No JVD or lymphadenopathy. CARDIOVASCULAR: Regular rate and rhythm without murmurs, gallops, or rubs. RESPIRATORY: Breath sounds equal bilaterally. No accessory muscle use. GASTROINTESTINAL: Abdomen soft, non-tender, nondistended. MUSCULOSKELETAL: No cyanosis, or edema. Groin stable Laboratory Laboratory Tests Test 10/21/17 20:34 Triglycerides Level 115 MG/DL Cholesterol Level 147 MG/DL LDL Cholesterol 75 MG/DL HDL Cholesterol 48.6 MG/DL Cholesterol/HDL Ratio 3.02 RATIO Assessment and Plan Problem List: (1) CHF (congestive heart failure) ICD Codes: I50.9 - Heart failure, unspecified (2) Nonischemic cardiomyopathy ICD Codes: I42.8 - Other cardiomyopathies (3) Morbid obesity ICD Codes: E66.01 - Morbid (severe) obesity due to excess calories (4) Hypertension ICD Codes: I10 - Essential (primary) hypertension (5) Diabetes mellitus ICD Codes: E11.9 - Type 2 diabetes mellitus without complications Assessment and Plan Cath with patent cors and moderate LV dysfunction c/w nonischemic CM. Groin stable. Continue tx for CHF. OK to discharge home. F/u w PCP after discharge. D/ w pt and family. Pipo Salinas MD October 22, 2017 15:30
== END 2017-10-22 16:00 | disposition home or self-care (01) | DRG 287 ==
LOC: NEPC 20:35 → NEDA 22:57 → NEDH 10-19 03:02 → HIMW 10-19 11:15
PROVIDERS: ADMIT Hospitalist; ATTEND Hospitalist
PROC: B2151ZZ Fluoroscopy of Left Heart using Low Osmolar Contrast (ICD-10-PCS; 2017-10-21)
PROC: B2111ZZ Fluoroscopy of Multiple Coronary Arteries using Low Osmolar Contrast (ICD-10-PCS; 2017-10-21)
PROC: 4A023N8 Measurement of Cardiac Sampling and Pressure, Bilateral, Percutaneous Approach (ICD-10-PCS; principal; 2017-10-21 17:15)
DX: I42.8 Other cardiomyopathies (principal); I11.0 Hypertensive heart disease with heart failure; I50.9 Heart failure, unspecified; I25.110 Atherosclerotic heart disease of native coronary artery with unstable angina pectoris; Z68.43 Body mass index [BMI] 50.0-59.9, adult; I16.9 Hypertensive crisis, unspecified; E66.01 Morbid (severe) obesity due to excess calories; R00.0 Tachycardia, unspecified; E11.9 Type 2 diabetes mellitus without complications; E78.5 Hyperlipidemia, unspecified; G47.30 Sleep apnea, unspecified; J45.909 Unspecified asthma, uncomplicated; M19.90 Unspecified osteoarthritis, unspecified site; D57.3 Sickle-cell trait; Z82.49 Family history of ischemic heart disease and other diseases of the circulatory system; Z83.3 Family history of diabetes mellitus; Z79.84 Long term (current) use of oral hypoglycemic drugs
CPT/HCPCS: 71046; 78452; 80048; 80053; 80061; 82550; 82948; 83735; 83880; 84484; 85025; 85610; 85730; 87641; 93005; 93017; 93458; 94002; 94003; 96374; 99152; 99153; A9502; C1760; C1769; C1893; G0269; J1644; J1815; J2250; J2785; J3010; J7030; Q9967